=== PATIENT | male | born 1945 | race Caucasian/White ===

== ENCOUNTER 2016-10-06 11:49 | Inpatient (IN) | payer MEDICARE ==
[~2016-10-06] VITALS: Ht 170.2 cm; Wt 69.0 kg
[~2016-10-06 11:49] MED LIST: FOLI1TAB PO; GLIP10TA6 PO; METO100 PO; PRED5TAB PO; RANI150T PO; SULF500T35 PO; ULTR50TA PO
[2016-10-06 11:54] VITALS: BP 217/91; PULSE 65; RESP 15; TEMP 97.7; O2SAT 97
--- NOTE | 2016-10-06 12:03 | PD ---
Physical Exam Time Seen by Provider: 12:02 Narrative 71 y/o male here for evaluation of constipation, abdominal pain for 5 days, urinary retention 2 days. Vital signs reviewed. Seen at triage desk. Awaiting bed placement. Data Data Last Documented VS Vital Signs Date Time Temp Pulse Resp B/P Pulse Ox O2 Delivery O2 Flow Rate FiO2 10/06/16 11:54 97.7 65 15 217/91 97 MDM Medical Record Reviewed: Yes Supervised Visit with LAXMI: Duc Gerber Oct 06, 2016 12:03
[2016-10-06 12:44] LABS: AUTOMATED NEUTROPHIL # 6.6 TH/MM3 (1.8-7.7); BASOPHIL % 0.4 % (0.0-2.0); EOSINOPHIL # 0.2 TH/MM3 (0-0.4); EOSINOPHIL % 2.7 % (0.0-4.0); HEMATOCRIT 32.9 % (39.0-51.0); HEMO FLAGS DIFF FINAL; LYMPH % 13.6 % (9.0-44.0); LYMPHOCYTE # 1.1 TH/MM3 (1.0-4.8); MEAN CELL VOLUME 94.5 FL (80.0-100.0); MEAN CORPUSCULAR HEMOGLOBIN 31.4 PG (27.0-34.0); MEAN CORPUSCULAR HGB CONC 33.2 % (32.0-36.0); MONO % 3.8 % (0.0-8.0); NEUT % 79.5 % (16.0-70.0); PLATELET COUNT 196 TH/MM3 (150-450); RED BLOOD COUNT 3.48 MIL/MM3 (4.50-5.90); WHITE BLOOD COUNT 8.4 TH/MM3 (4.0-11.0)
[2016-10-06 13:15] LABS: ANION GAP 11 MEQ/L (5-15); AST (GOT) 11 U/L (15-37); BICARBONATE 18.3 MEQ/L (21.0-32.0); BLOOD UREA NITROGEN 36 MG/DL (7-18); CHLORIDE 112 MEQ/L (98-107); GLOMERULAR FILTRATION RATE 10 ML/MIN (>89); POTASSIUM 5.4 MEQ/L (3.5-5.1); SODIUM (NA) 141 MEQ/L (136-145)
[2016-10-06 13:37] LABS: ALKALINE PHOSPHATASE 108 U/L (45-117); ALT (GPT) 14 U/L (12-78); TOTAL BILIRUBIN ADULT 0.4 MG/DL (0.2-1.0)
--- NOTE | 2016-10-06 14:09 | PD ---
HPI Chief Complaint: Abdominal Pain Time Seen by Provider: 14:08 Travel History International Travel<30 days: No Contact w/Intl Traveler<30days: No Traveled to known affect area: No History of Present Illness HPI 71 YO M with PMH of DM, HTN, diverticulitis S/P partial colectomy presents to the ED for evaluation of 5 day history of constipation and 2 day history of anuria. He endorses mild, diffuse abdominal pain that is relieved by taking Tylenol. Patient denies fever, chills, nausea, vomiting. He states that he normally has 3-4 small NBNB bowel movements daily. He endorses decreased appetite but has been able to eat, last meal at dinner yesterday. He endorses panendoscopy "within the last few years" which he states was normal. PFSH Past Medical History Anemia: Yes (pernicious anemia) Arthritis: Yes (psoriatric arthritis ) Asthma: No Autoimmune Disease: No Anxiety: No Depression: No Heart Rhythm Problems: No Cancer: No Cardiovascular Problems: Yes High Cholesterol: Yes Chemotherapy: No Chest Pain: No Congestive Heart Failure: No COPD: No Cerebrovascular Accident: Yes (TIA) Dementia: Yes Diabetes: Yes Diminished Hearing: Yes ([place]) Endocrine: Yes Gastrointestinal Disorders: Yes GERD: Yes Genitourinary: Yes Hiatal Hernia: Yes Hypertension: Yes Immune Disorder: No Kidney Stones: No Musculoskeletal: Yes Neurologic: No Psychiatric: No Reproductive: No Respiratory: Yes Migraines: No Myocardial Infarction: Yes Radiation Therapy: No Renal Failure: Yes Seizures: No Sickle Cell Disease: No Sleep Apnea: Yes Thyroid Disease: No Ulcer: No Past Surgical History Abdominal Surgery: Yes (COLON RESECTION WITH COLOSTOMY) AICD: No Arteriovenous Shunt: No Cardiac Surgery: No Ear Surgery: No Endocrine Surgery: No Eye Surgery: No Genitourinary Surgery: No Gynecologic Surgery: No Insulin Pump: No Joint Replacement: No Neurologic Surgery: No Oral Surgery: No Pacemaker: No Thoracic Surgery: No Tonsillectomy: Yes Other Surgery: Yes (bilateral inguinal hernia) Social History Alcohol Use: No Tobacco Use: No Substance Use: No Allergies-Medications (Allergen,Severity, Reaction): Coded Allergies: No Known Allergies (Unverified , 10/06/16) Reported Meds & Prescriptions Reported Meds & Active Scripts Active Reported Zantac (Ranitidine HCl) 150 Mg Tab 150 Mg PO BID Glimepiride 2 Mg Tab 2 Mg PO BID Metoprolol Tartrate 100 Mg Tab 100 Mg PO BID Review of Systems Except as stated in HPI: all other systems reviewed are Neg Physical Exam Narrative GENERAL: Well-nourished, well-developed thin white male in no acute distress. SKIN: Focused skin assessment warm/dry. HEAD: Normocephalic. EYES: No scleral icterus. No injection or drainage. NECK: Supple, trachea midline. No JVD or lymphadenopathy. CARDIOVASCULAR: Regular rate and rhythm without murmurs, gallops, or rubs. RESPIRATORY: Breath sounds clear and equal bilaterally. No accessory muscle use. GASTROINTESTINAL: Abdomen soft, nondistended, mildly diffusely tender. No palpable masses. Some voluntary guarding. MUSCULOSKELETAL: No cyanosis, or edema. BACK: Nontender without obvious deformity. No CVA tenderness. Data Data Last Documented VS Vital Signs Date Time Temp Pulse Resp B/P Pulse Ox O2 Delivery O2 Flow Rate FiO2 10/06/16 14:36 24 10/06/16 14:35 98 Room Air 10/06/16 11:54 97.7 65 217/91 Orders Complete Blood Count With Diff (10/06/16 12:04) Comprehensive Metabolic Panel (10/06/16 12:04) Lipase (10/06/16 12:04) Urinalysis - C+S If Indicated (10/06/16 12:04) Bladder Scan PRN (10/06/16 14:25) Iv Access Insert/Monitor (10/06/16 14:25) Ecg Monitoring (10/06/16 14:25) Oximetry (10/06/16 14:25) NPO (10/06/16 14:25) Sodium Chlor 0.9% 1000 Ml Inj (Ns 1000 M (10/06/16 14:25) Ct Abd/Pel W/O Iv Contrast (10/06/16 14:25) Urinary Catheter Insert/Apply (10/06/16 14:28) Lactic Acid (10/06/16 14:28) Urine Culture (10/06/16 15:00) Ceftriaxone Inj (Rocephin Inj) (10/06/16 16:30) Electrocardiogram (10/06/16 17:34) Admit Order (Ed Use Only) (10/06/16 17:46) Consult Nephrology (10/06/16 ) Labs Laboratory Tests Test 10/06/16 10/06/16 10/06/16 12:10 14:45 15:00 White Blood Count 8.4 TH/MM3 Red Blood Count 3.48 MIL/MM3 Hemoglobin 10.9 GM/DL Hematocrit 32.9 % Mean Corpuscular Volume 94.5 FL Mean Corpuscular Hemoglobin 31.4 PG Mean Corpuscular Hemoglobin 33.2 % Concent Red Cell Distribution Width 14.0 % Platelet Count 196 TH/MM3 Mean Platelet Volume 7.1 FL Neutrophils (%) (Auto) 79.5 % Lymphocytes (%) (Auto) 13.6 % Monocytes (%) (Auto) 3.8 % Eosinophils (%) (Auto) 2.7 % Basophils (%) (Auto) 0.4 % Neutrophils # (Auto) 6.6 TH/MM3 Lymphocytes # (Auto) 1.1 TH/MM3 Monocytes # (Auto) 0.3 TH/MM3 Eosinophils # (Auto) 0.2 TH/MM3 Basophils # (Auto) 0.0 TH/MM3 CBC Comment DIFF FINAL Differential Comment Sodium Level 141 MEQ/L Potassium Level 5.4 MEQ/L Chloride Level 112 MEQ/L Carbon Dioxide Level 18.3 MEQ/L Anion Gap 11 MEQ/L Blood Urea Nitrogen 36 MG/DL Creatinine 5.44 MG/DL Estimat Glomerular Filtration 10 ML/MIN Rate Random Glucose 112 MG/DL Calcium Level 8.8 MG/DL Total Bilirubin 0.4 MG/DL Aspartate Amino Transf 11 U/L (AST/SGOT) Alanine Aminotransferase 14 U/L (ALT/SGPT) Alkaline Phosphatase 108 U/L Total Protein 8.3 GM/DL Albumin 3.5 GM/DL Lipase 379 U/L Lactic Acid Level 0.7 mmol/L Urine Color YELLOW Urine Turbidity CLEAR Urine pH 5.5 Urine Specific Strong 1.015 Urine Protein 30 mg/dL Urine Glucose (UA) NEG mg/dL Urine Ketones NEG mg/dL Urine Occult Blood TRACE Urine Nitrite NEG Urine Bilirubin NEG Urine Urobilinogen LESS THAN 2.0 MG/DL Urine Leukocyte Esterase MOD Urine RBC 2 /hpf Urine WBC 13 /hpf Microscopic Urinalysis Comment CULTURE INDICATED MDM Medical Decision Making Medical Screen Exam Complete: Yes Emergency Medical Condition: Yes Interpretation(s) EKG rate 68, sinus rhythm with occasional PVCs. LAD with ST and T-wave abnormalities in the lateral leads. Reviewed by Dr. Rome. Differential Diagnosis Bowel obstruction versus paralytic ileus versus pyelonephritis versus CELESTE versus urinary obstruction versus constipation versus other Narrative Course 71 YO M with PMH of DM, HTN, diverticulitis S/P partial colectomy presents to the ED for evaluation of 5 day history of constipation and 2 day history of anuria. He endorses mild, diffuse abdominal pain that is relieved by taking Tylenol. Patient denies fever, chills, nausea, vomiting. He endorses panendoscopy "within the last few years" which he states was normal. Vitals reviewed. Physical exam reveals a nontoxic-appearing white male in no acute distress. Diffuse mild tenderness in the abdomen and mild CVA tenderness. Physical exam is otherwise unremarkable. Hemoglobin 10.9, potassium 5.4, BUN 36 and creatinine 5.44. This is double his normal creatinine which runs around 2.3-2.8 per record review. UA with occasional blood, moderate leukocyte Estrace and [address] reveals nonspecific inflammation of the right kidney without hydronephrosis or obstruction. Patient was administered 2 L normal saline IV and a gram of Rocephin. The patient is in CELESTE and could benefit from nephrology consult. I discussed the results of the workup and recommended admission to the patient and his family who are agreeable. I spoke with Dr. Jean who agrees to accept the patient to the medicine service. Nephrology consult placed. Please see medicine for notes for disposition. Mirna Cobb Oct 06, 2016 14:08
[2016-10-06] MEDS ORDERED: SODIUM CHLOR 0.9% 1000 ML INJ 1,000 ML IV SCH (14:25)
[2016-10-06 14:35] VITALS: BP 199/88; PULSE 64; RESP 24; O2SAT 98
[2016-10-06] MEDS ORDERED: METO100T PO (14:50)
[2016-10-06] MEDS ORDERED: GLIM2TAB PO (14:51)
[2016-10-06] MEDS ORDERED: ZANT150T2 PO (14:51)
[2016-10-06 16:00] VITALS: BP 177/81; PULSE 66; RESP 21; O2SAT 99
[2016-10-06 16:02] LABS: BLOOD, URINE TRACE (NEG); COMMENT (UR) CULTURE INDICATED; CULTURE IF INDICATED CULTURE INDICATED; GLUCOSE,URINE NEG (NEG); KETONE, URINE NEG (NEG); NITRITE,URINE NEG (NEG); PH, URINE 5.5 (5.0-8.5); URINE COLOR YELLOW (YELLW/STRAW)
[2016-10-06] MEDS ORDERED: cefTRIAXone INJ 1,000 MG in SODIUM CHLORIDE 0.9% INJ 25 ML IV ONE (16:30)
--- NOTE | 2016-10-06 17:10 | RADRPT ---
EXAM DATE/TIME: 10/06/2016 16:51 [facility] COMPARISON: No previous studies available for comparison. INDICATIONS : Patient complains of abdominal pain. ORAL CONTRAST: No oral contrast ingested. RADIATION DOSE: 7.47 CTDIvol (mGy) MEDICAL HISTORY : Cardiovascular disease. Diabetes mellitus type 1. Hypertension. SURGICAL HISTORY : None. ENCOUNTER: Initial ACUITY: 1 day PAIN SCALE: 7/10 LOCATION: lower quadrant TECHNIQUE: Volumetric scanning of the abdomen and pelvis was performed. Using automated exposure control and ad justment of the mA and/or kV according to patient size, radiation dose was kept as low as reasonably achievable to obtain optimal diagnostic quality images. DICOM format image data is available electro nically for review and comparison. FINDINGS: Lung bases are clear. No acute findings in the liver, spleen, adrenals or pancreas. No calcified gall stones or biliary ductal dilatation. The kidneys are atrophic. There is some mild stranding around the right kidney of uncertain etiology but possibly representing some mild inflammatory changes. No hydronephrosis or obstructive uropathy. Seay catheter present in the bladder. Prostate is enlarged. Previous inguinal hernia repair noted. No bowel obstruction, free fluid or free air. No acute bony abnormality. Pars defects at the lumbosac ral junction with grade 1 anterolisthesis. CONCLUSION: 1. Questionable inflammatory or edematous changes around the right kidney. No hydronephrosis or obstr uctive uropathy. Tiny nonobstructing renal calcifications on the left. No acute findings in the remai nder of the abdomen and pelvis. 2. Pars defect at the lumbosacral junction with grade 1 anterolisthesis. Prostatic enlargement. Nelson Schilling MD on October 06, 2016 at 17:00 Board Certified Radiologist. This report was verified electronically.
[2016-10-06 18:30] VITALS: BP 170/79; PULSE 58; RESP 18; O2SAT 99
--- NOTE | 2016-10-06 18:46 | HHI.HP ---
HPI Service [facility] Hospitalists Primary Care Physician Denton Jean MD, PhD Admission Diagnosis CELESTE, hyperkalemia Chief Complaint: Constipation, decreased UOP Travel History International Travel<30 Days: No Contact w/Intl Traveler <30 Da: No Traveled to Known Affected Are: No History of Present Illness 71 YO M with PMH of DM, HTN, CKD-4, diverticulitis S/P partial colectomy presents to the ED for evaluation of 5 day history of constipation and 2 day history of anuria. He endorses mild, diffuse abdominal pain that is relieved by taking Tylenol. Patient denies fever, chills. Had one episode of vomiting 2 days ago and one small BM 2 days ago after using suppository. He states that he normally has 3-4 small NBNB bowel movements daily. He endorses decreased appetite but has been able to eat. His last meal was at dinner yesterday. He reports that he has been eating a lot of hot dogs over last 2 weeks and drinking "small Coke floats". No CP or SOB. No peripheral edema. Review of Systems Constitutional: COMPLAINS OF: Fatigue, Change in appetite Eyes: DENIES: Blurred vision, Diplopia, Eye inflammation, Eye pain, Vision loss , Photosensitivity, Double Vision Ears, nose, mouth, throat: DENIES: Tinnitus, Hearing loss, Vertigo, Nasal discharge, Oral lesions, Throat pain, Hoarseness, Ear Pain, Running Nose, Epistaxis, Sinus Pain, Toothache, Odynophagia Respiratory: DENIES: Apneas, Cough, Snoring, Wheezing, Hemoptysis, Sputum production, Shortness of breath Cardiovascular: DENIES: Chest pain, Palpitations, Syncope, Dyspnea on Exertion , PND, Lower Extremity Edema, Orthopnea, Claudication Gastrointestinal: COMPLAINS OF: Abdominal pain, Constipation, Nausea, Vomiting Musculoskeletal: COMPLAINS OF: Joint pain, Back pain Integumentary: COMPLAINS OF: Rash Hematologic/lymphatic: DENIES: Bruising, Lymphadenopathy Immunologic/allergic: DENIES: Eczema, Urticaria Past Family Social History Past Medical History Anemia of CKD CKD stage 4 (bordering on 5) DM nephropathy Dyslipidemia HTN Hyperkalemia Neuropathy Prior [place] Osteoporosis Psoriatic arthropathy Secondary hyperparathyroidism of CKD vit D def Past Surgical History Inguinal hernia rpr (1999, 2000) partial colectomy with bladder repair and ureteral stent placement secondary to colovesical fistula, 04/2011 Reported Medications ASA 81mg/d Calcium 600mg + vit D 400 IU bid Glimepiride 2mg bid Metoprolol 100mg bid Zantac 150mg bid TUMS 1 bid Vit D 77414 units each M,W,F Allergies: Coded Allergies: No Known Allergies (Unverified , 10/06/16) Family History nc Social History No tobacco since 1970; prior to that had 15 pack-year hx Occasional EtOH use No illicits 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 a/o. SKIN: Psoriatic rash BLE and UE...stable. Cool and dry. HEAD: Atraumatic. Normocephalic. No temporal or scalp tenderness. EYES: Pupils equal round and reactive. Extraocular motions intact. No scleral icterus. No injection or drainage. ENT: Nose without bleeding, purulent drainage or septal hematoma. Airway patent. NECK: Trachea midline. No JVD or lymphadenopathy. Supple, nontender, no meningeal signs. CARDIOVASCULAR: Regular rate and rhythm without murmurs, gallops, or rubs. RESPIRATORY: Clear to auscultation. Breath sounds equal bilaterally. No wheezes , rales, or rhonchi. GASTROINTESTINAL: Abdomen soft, nondistended. Mild TTP RUQ and to lesser degree LUQ. No hepato-splenomegaly, or palpable masses. No guarding. MUSCULOSKELETAL: Extremities without clubbing, cyanosis, or edema. No joint tenderness, effusion, or edema noted. No calf tenderness. NEUROLOGICAL: Awake and alert. Cranial nerves II through XII intact. Motor and sensory grossly within normal limits. Five out of 5 muscle strength in all muscle groups. Normal speech. Laboratory Laboratory Tests Test 10/06/16 10/06/16 10/06/16 12:10 14:45 15:00 White Blood Count 8.4 Red Blood Count 3.48 Hemoglobin 10.9 Hematocrit 32.9 Mean Corpuscular Volume 94.5 Mean Corpuscular Hemoglobin 31.4 Mean Corpuscular Hemoglobin 33.2 Concent Red Cell Distribution Width 14.0 Platelet Count 196 Mean Platelet Volume 7.1 Neutrophils (%) (Auto) 79.5 Lymphocytes (%) (Auto) 13.6 Monocytes (%) (Auto) 3.8 Eosinophils (%) (Auto) 2.7 Basophils (%) (Auto) 0.4 Neutrophils # (Auto) 6.6 Lymphocytes # (Auto) 1.1 Monocytes # (Auto) 0.3 Eosinophils # (Auto) 0.2 Basophils # (Auto) 0.0 CBC Comment DIFF FINAL Differential Comment Sodium Level 141 Potassium Level 5.4 Chloride Level 112 Carbon Dioxide Level 18.3 Anion Gap 11 Blood Urea Nitrogen 36 Creatinine 5.44 Estimat Glomerular Filtration 10 Rate Random Glucose 112 Calcium Level 8.8 Total Bilirubin 0.4 Aspartate Amino Transf 11 (AST/SGOT) Alanine Aminotransferase 14 (ALT/SGPT) Alkaline Phosphatase 108 Total Protein 8.3 Albumin 3.5 Lipase 379 Lactic Acid Level 0.7 Urine Color YELLOW Urine Turbidity CLEAR Urine pH 5.5 Urine Specific [place] 1.015 Urine Protein 30 Urine Glucose (UA) NEG Urine Ketones NEG Urine Occult Blood TRACE Urine Nitrite NEG Urine Bilirubin NEG Urine Urobilinogen LESS THAN 2.0 Urine Leukocyte Esterase MOD Urine RBC 2 Urine WBC 13 Microscopic Urinalysis Comment CULTURE INDICATED Date/Time Procedure Status Source Growth 10/06/16 15:00 Urine Culture Received Urine Random Urine Pending Result Diagram: 10/06/16 1210 10/06/16 1210 Imaging Last 72 hours Impressions Abdomen/Pelvis CT 10/06/16 1425 Signed Impressions: Service Date/Time: Thursday, October 06, 2016 16:51 - CONCLUSION: 1. Questionable inflammatory or edematous changes around the right kidney. No hydronephrosis or obstructive uropathy. Tiny nonobstructing renal calcifications on the left. No acute findings in the remainder of the abdomen and pelvis. 2. Pars defect at the lumbosacral junction with grade 1 anterolisthesis. Prostatic enlargement. Nelson Schilling MD Assessment and Plan Problem List: (1) Acute kidney injury superimposed on CKD Status: Acute Plan: Will have nephrology see pt. Reportedly had been anuric. Has urinated appx 700 cc since chen placed per ER provider. Could have some degree of distal obstruction. Noted inflammatory changes on CT...? nephritis. (2) Diabetic nephropathy Status: Chronic Plan: A1c was 6.5 in 04/2016. Pt overdue for labs. Will check labs, use SSI in hospital. (3) Anemia in chronic kidney disease (CKD) Status: Chronic Plan: Hb is stable with outpt values. Continue to follow. Would not use Epogen unless Hb closer to 8 or 8.5 (4) Hyperkalemia Status: Acute Plan: recurring issue a/w CKD. Avoiding KANNAN-I and ARB. Give fluid and repeat labs. (5) HTN (hypertension), benign Status: Chronic Plan: quite volatile at times. Resume home meds. Clonidine prn. May need to schedule hydralazine. (6) CAD (coronary artery disease) Status: Chronic Plan: stable. Continue secondary prevention. (7) Psoriatic arthritis Status: Chronic Plan: Stable. Outpt care. He has not wanted aggressive intervention Code Status Full Discussed Condition With Pt, ER provider and pt's Problem Qualifiers (1) Diabetic nephropathy: Qualified Code: E11.21 - Diabetic nephropathy associated with type 2 diabetes mellitus (2) Anemia in chronic kidney disease (CKD): Qualified Code: N18.5 - Anemia in stage 5 chronic kidney disease, not on chronic dialysis Denton Jean MD PhD Oct 06, 2016 18:46
[2016-10-06] MEDS ORDERED: TEMAZEPAM 15 MG CAP PO PRN (19:00)
[2016-10-06] MEDS ORDERED: DEXTROSE 50% IN WATER 50 ML VIAL(D50) IV PUSH PRN (19:15)
[2016-10-06] MEDS ORDERED: GLUCAGON 1 MG/ML VIAL OTHER PRN (19:15)
[2016-10-06] MEDS: cloNIDine HCL 0.1 MG TAB PO PRN (19:41)
[2016-10-06] MEDS ORDERED: ONDANSETRON HCL 4 MG/2 ML VIAL IV PUSH PRN (19:45)
[2016-10-06] MEDS ORDERED: POLYETHYLENE GLYCOL 17 GM PKG PO ONE (19:45)
[2016-10-06] MEDS: TAMSULOSIN HCL 0.4 MG CAP PO SCH (20:28)
[2016-10-06] MEDS: INSULIN ASPART SUPPLEMENTAL SCALE SQ SCH (21:00)
[2016-10-06 21:54] LABS: HEMOGLOBIN A1a 1.3 %; HEMOGLOBIN A1b 1.4 %; HEMOGLOBIN Ao 85.8 %; HEMOGLOBIN LA1C 1.9 %; HEMOGLOBIN P3 5.1 %
[2016-10-06] MEDS ORDERED: DOCUSATE SODIUM 100 MG CAP PO ONE (22:00)
[2016-10-06 22:15] VITALS: BP 151/67; PULSE 71; RESP 18; TEMP 98.4; O2SAT 97
--- NOTE | 2016-10-06 22:42 | MB ---
cc: RENETTA LEONARD MD DATE OF CONSULTATION 10/06/2016 REASON FOR CONSULTATION Elevated BUN and creatinine and high potassium. HISTORY OF PRESENT ILLNESS This is a 70-year-old male with past medical history of chronic kidney disease, hypertension, ischemic heart disease, hyperlipidemia, chronic anemia was brought to the hospital because of severe constipation and decreased urine output. I was called to see the patient because of elevated BUN and creatinine. The patient claims that he has history of chronic kidney disease and his creatinine has been staying around 2. The last one I have in the computer in 2014 it was 2.4-2.6. The patient has not been following regularly with any financial service rep and he is just following with his primary physician and according to his primary physician's note he has stage IV renal disease approaching stage V. The patient has previous history of bladder repair and ureteral stent placement with partial colectomy and reversal of colostomy. The patient denies any history of fever. Was not taking any new medication. He has been taking only Tylenol. Denies taking any nonsteroidal anti-inflammatory drugs. He noted that he has decreased urine output for last 2 days and he has not passed any urine for last 1-1/2 days. He has severe constipation for 5 days and not eating well because of severe constipation. There is no history of shortness of breath. No chest pain. No palpitation. He vomited once on Wednesday two days ago. PAST MEDICAL HISTORY 1. Hypertension. 2. Chronic kidney disease. 3. Diabetes mellitus. 4. Chronic anemia. 5. Ischemic heart disease. PAST SURGICAL HISTORY 1. Colectomy and colostomy with reversal. 2. History of bladder repair with colovesical fistula. 3. Inguinal hernia surgery. REVIEW OF SYSTEMS The patient has generalized weakness, feeling tired. Has no history of fever. No shortness of breath. No chest pain. He has generalized weakness, has decreased appetite, vomited once 2 days ago. He has constipation and has decreased urine output. And has no urine output for the last 1-1/2 days. He currently has a Seay catheter and started passing some urine. SOCIAL HISTORY Patient is . He has a remote history of smoking and occasionally uses alcoholic beverages. FAMILY HISTORY His uncle, father's brother was on hemodialysis and father has some renal issues but was not on dialysis. ALLERGIES NO KNOWN DRUG ALLERGIES. MEDICATIONS Currently he is on: 1. Flomax. 2. He got one dose of ceftriaxone and IV fluids. 3. He is on insulin sliding scale. PHYSICAL EXAMINATION GENERAL: The patient is awake and alert. He is not in acute distress. VITAL SIGNS: His last blood pressure is 217/91 this was on presentation. Temperature 97.7. Oxygen saturation 97-98% on room air. HEENT: Pupils equally reactive to light. Nonicteric sclerae. Conjunctivae pale. NECK: Supple. JVD is not elevated. LUNGS: The patient has bilateral decreased air entry with scattered wheezing. HEART: S1-S2. Regular rhythm. ABDOMEN: Distended. Soft. Lax. There are multiple scars. No tenderness. Bowel sounds positive. EXTREMITIES: He has low edema in the legs. LABORATORY DATA Investigations, WBC count 8.4, hemoglobin 10.9, platelet count of 196, neutrophils 79.5%. Sodium 141, potassium 5.4, chloride 112, bicarb 18.3. The BUN of 36, creatinine 5.4, calcium 8.8. AST 11, ALT is 14, total protein is 8.3, albumin of 3.5. INR is 1.0. Urinalysis showing protein of 13, trace occult blood. Moderate leukocyte esterase. Wbc's 13, rbc's 2. Previously he has rheumatoid factor positive and GRACIA was negative. toxicology screen was not done. Urine cultures is pending. IMAGING The patient had a CT scan of the abdomen and pelvis done which shows edematous changes on the right kidney with no hydronephrosis, non-obstructing renal calcification on the left side. Enlarged prostate. The kidneys are mentioned as atrophic. ASSESSMENT/PLAN 1. Chronic kidney disease with some acute kidney injury. 2. Hyperkalemia and metabolic acidosis. 3. Urinary tract infection. 4. Dehydration. 5. Hypertension. 6. Diabetes mellitus. 7. Mild anemia. The patient has chronic kidney disease most likely has diabetic renal disease and now developed some acute worsening. He has a smaller kidney so there is a possibility of hypertensive renovascular disease. His potassium was elevated and his bicarb is low. I will give him some gentle hydration with sodium bicarbonate and follow the urine output and the BUN and creatinine. Discussed with the patient and about the possibility of dialysis if his renal function does not improve. Thank you for the consultation and I will follow the patient while he is in the hospital. MD WENDY Lundberg/KK /6:52 PM /10:21 PM
[2016-10-06] MEDS: METOPROLOL TARTRATE 100 MG TAB PO SCH (23:15)
[2016-10-06] MEDS: FAMOTIDINE 20 MG TAB PO SCH (23:15)
[2016-10-06] MEDS: SODIUM BICARBONATE 8.4% INJ 50 MEQ in SODIUM CHLOR 0.45% 1000 ML INJ 1,000 ML IV SCH (23:41)
[2016-10-07] VITALS (7 sets, daily range): BP systolic 149–180; BP diastolic 67–79; PULSE 52–90; RESP 16–21; TEMP 97.4–98.8; O2SAT 96–100
[2016-10-07] MEDS: INSULIN ASPART SUPPLEMENTAL SCALE SQ SCH ×4 (06:19→21:00)
--- NOTE | 2016-10-07 08:28 | EKG ---
Date Performed: 10/06/2016 Time Performed: 17:44:03 PTAGE: 71 years EKG: Sinus rhythm WITH OCCASIONAL ECTOPIC PREMATURE COMPLEXES MARKED LEFT AXIS DEVIATION INCOMPLETE RIGHT BUNDLE BRANC H BLOCK MODERATE VOLTAGE CRITERIA FOR LVH, CONSIDER NORMAL VARIANT ST DEVIATION AND MODERATE T-WAVE A BNORMALITY, CONSIDER ANTEROLATERAL ISCHEMIA ABNORMAL ECG NO PREVIOUS TRACING DOCTOR: Femi Herrera Interpretating Date/Time 10/07/2016 08:26:43
[2016-10-07] MEDS: TAMSULOSIN HCL 0.4 MG CAP PO SCH (08:46)
[2016-10-07] MEDS: FAMOTIDINE 20 MG TAB PO SCH ×2 (08:46→22:06)
[2016-10-07] MEDS: METOPROLOL TARTRATE 100 MG TAB PO SCH ×2 (08:46→22:06)
[2016-10-07 09:22] LABS: ALKALINE PHOSPHATASE 80 U/L (45-117); ALT (GPT) 11 U/L (12-78); ANION GAP 7 MEQ/L (5-15); AST (GOT) 6 U/L (15-37); BICARBONATE 18.6 MEQ/L (21.0-32.0); BLOOD UREA NITROGEN 35 MG/DL (7-18); CHLORIDE 112 MEQ/L (98-107); GLOMERULAR FILTRATION RATE 12 ML/MIN (>89); HDL CHOLESTEROL 20.9 MG/DL (40.0-60.0); LDL CHOLESTEROL 52 MG/DL (0-99); POTASSIUM 4.8 MEQ/L (3.5-5.1); SODIUM (NA) 138 MEQ/L (136-145); TOTAL BILIRUBIN ADULT 0.3 MG/DL (0.2-1.0)
--- NOTE | 2016-10-07 11:04 | HHI.PR ---
Subjective Remarks eager for d/c no other complaints bowels moving Objective Vitals heart reg lung cta abd s/nt ext no edema chen 1200cc Vital Signs Date Time Temp Pulse Resp B/P Pulse Ox O2 Delivery O2 Flow Rate FiO2 10/07/16 08:35 97.6 54 16 149/67 96 10/07/16 04:47 98.8 52 21 156/73 100 10/07/16 01:05 98.7 55 18 169/72 97 10/06/16 22:15 98.4 71 18 151/67 97 10/06/16 18:30 58 18 170/79 99 Room Air 10/06/16 16:00 66 21 177/81 99 Room Air 10/06/16 14:36 24 10/06/16 14:35 24 98 Room Air 10/06/16 14:35 64 24 199/88 98 Room Air 10/06/16 11:54 97.7 65 15 217/91 97 Result Diagram: 10/06/16 1210 10/07/16 0811 Imaging Last 72 hours Impressions Abdomen/Pelvis CT 10/06/16 1425 Signed Impressions: Service Date/Time: Thursday, October 06, 2016 16:51 - CONCLUSION: 1. Questionable inflammatory or edematous changes around the right kidney. No hydronephrosis or obstructive uropathy. Tiny nonobstructing renal calcifications on the left. No acute findings in the remainder of the abdomen and pelvis. 2. Pars defect at the lumbosacral junction with grade 1 anterolisthesis. Prostatic enlargement. Nelson Schilling MD A/P Problem List: (1) Acute kidney injury superimposed on CKD Status: Acute Plan: a/ckd 4. ckd due to dm. cont ivf hydration. pt has 1200cc in chen and cr/gfr slightly improved. renal following dvt prophylaxis ambulate monitor for improvement in gfr and if pt can avoid HD. f/u urine cx. prn bp control. changed scheduled meds as needed. (2) Diabetic nephropathy Status: Chronic Plan: A1c was 6.5 in 04/2016. Pt overdue for labs. Will check labs, use SSI in hospital. (3) Anemia in chronic kidney disease (CKD) Status: Chronic Plan: Hb is stable with outpt values. Continue to follow. Would not use Epogen unless Hb closer to 8 or 8.5 (4) Hyperkalemia Status: Acute Plan: recurring issue a/w CKD. Avoiding KANNAN-I and ARB. improved with ivf (5) HTN (hypertension), benign Status: Chronic Plan: quite volatile at times. Resume home meds. Clonidine prn. May need to schedule hydralazine. (6) CAD (coronary artery disease) Status: Chronic Plan: stable. Continue secondary prevention. (7) Psoriatic arthritis Status: Chronic Plan: Stable. Outpt care. He has not wanted aggressive intervention Problem Qualifiers (1) Diabetic nephropathy: Qualified Code: E11.21 - Diabetic nephropathy associated with type 2 diabetes mellitus (2) Anemia in chronic kidney disease (CKD): Qualified Code: N18.5 - Anemia in stage 5 chronic kidney disease, not on chronic dialysis Waldemar Benjamin MD Oct 07, 2016 11:04
[2016-10-07] MEDS: SODIUM BICARBONATE 8.4% INJ 50 MEQ in SODIUM CHLOR 0.45% 1000 ML INJ 1,000 ML IV SCH ×2 (11:24→22:09)
--- NOTE | 2016-10-07 23:07 | HHI.NPPN ---
Subjective History of Present Illness 70-year-old male with past medical history of chronic kidney disease, hypertension, ischemic heart disease, hyperlipidemia, chronic anemia was brought to the hospital because of severe constipation and decreased urine output. I was called to see the patient because of elevated BUN and creatinine. Additional Remarks Patient is alert, no SOB, no abd. pain. Review of Systems General Constitutional: Fatigue Cardiovascular Cardiac: MEZA Gastrointestinal Gastrointestinal: Constipation Objective Data Data 10/06/16 10/07/16 19:00 07:00 Bladder Scan Volume Amount 100 ml Vital Signs Date Time Temp Pulse Resp B/P Pulse Ox O2 Delivery O2 Flow Rate FiO2 10/07/16 19:42 98.2 60 18 166/79 97 10/07/16 15:24 98.7 90 18 151/70 100 10/07/16 11:18 97.4 54 16 156/73 96 10/07/16 08:35 97.6 54 16 149/67 96 10/07/16 04:47 98.8 52 21 156/73 100 10/07/16 01:05 98.7 55 18 169/72 97 -: 10/06/16 1210 10/07/16 0811 Physical Exam General Appearance: No Acute Distress, Comfortable Eyes Eye Exam: Pupils Equal Throat Throat Exam: Oral Mucosa [place] & Moist Neck Neck Exam: Neck Supple Pulmonary Resp Exam: Clear Bilaterally, Breath Sounds Equal, Rhonchi, Decreased Bases Cardiology CV Exam: Regular, Normal Sinus Rhythm Gastrointestinal/Abdomen GI Exam: Soft, Non-Tender, Bowel Sounds Present, Non-Distended Extremeties Extremities Exam: No Edema Neurologic Neuro Exam: Alert, Awake, Oriented Psychiatric Psych Exam: Appropriate Responses Assessment/Plan Assessment Summary: Anemia of CKD, Dehydration, Hypertension, CKD Stage IV Problem List: (1) CAD (coronary artery disease) (2) Diabetic nephropathy (3) HTN (hypertension), benign (4) Hyperkalemia (5) Diabetes mellitus (6) Anemia in chronic kidney disease (CKD) (7) Acute kidney injury superimposed on CKD Plan Patient has advance renal disease. Atrophic kidneys on CT scan. Non oliguric, BP is on higher side. On Metoprolol. Continue IVF and follow BMP. If no improvement, possible Dialysis. Problem Qualifiers (1) Diabetic nephropathy: Qualified Code: E11.21 - Diabetic nephropathy associated with type 2 diabetes mellitus (2) Diabetes mellitus: (3) Anemia in chronic kidney disease (CKD): Qualified Code: N18.5 - Anemia in stage 5 chronic kidney disease, not on chronic dialysis Daphne Davidson MD Oct 07, 2016 23:07
[2016-10-08] VITALS (7 sets, daily range): BP systolic 150–176; BP diastolic 68–79; PULSE 54–87; RESP 16–20; TEMP 97.5–98.5; O2SAT 91–99
[2016-10-08] MEDS: cloNIDine HCL 0.1 MG TAB PO PRN (06:00)
[2016-10-08] MEDS: INSULIN ASPART SUPPLEMENTAL SCALE SQ SCH ×2 (06:26→18:22)
[2016-10-08] MEDS: SODIUM BICARBONATE 8.4% INJ 50 MEQ in SODIUM CHLOR 0.45% 1000 ML INJ 1,000 ML IV SCH (06:47)
[2016-10-08 07:38] LABS: BICARBONATE 20.7 MEQ/L (21.0-32.0); POTASSIUM 4.9 MEQ/L (3.5-5.1)
[2016-10-08] MEDS: TAMSULOSIN HCL 0.4 MG CAP PO SCH (08:41)
[2016-10-08] MEDS: METOPROLOL TARTRATE 100 MG TAB PO SCH ×2 (08:42→20:36)
[2016-10-08] MEDS: FAMOTIDINE 20 MG TAB PO SCH ×2 (08:43→20:36)
--- NOTE | 2016-10-08 09:50 | HHI.PR ---
Subjective Remarks Pt complains about the frequency of the accuchecks. States that he only checks his BS at home twice daily He is frustrated by his lab results today and is anxious to go home. No specific complaints otherwise. Objective Vitals Vital Signs Date Time Temp Pulse Resp B/P Pulse Ox O2 Delivery O2 Flow Rate FiO2 10/08/16 07:57 97.9 55 16 150/68 96 10/08/16 03:48 97.6 58 20 176/74 98 10/08/16 00:42 171/72 10/07/16 23:31 97.7 61 18 180/72 97 10/07/16 19:42 98.2 60 18 166/79 97 10/07/16 15:24 98.7 90 18 151/70 100 10/07/16 11:18 97.4 54 16 156/73 96 10/07/16 10/07/16 10/08/16 15:00 23:00 07:00 Intake Total 672 ml Output Total 1100 ml 650 ml Balance -428 ml -650 ml Intake IV Total 672 ml Output Urine Total 1100 ml 650 ml # Voids 1 Result Diagram: 10/06/16 1210 10/08/16 0600 Other Results Laboratory Tests Test 10/06/16 10/06/16 10/06/16 10/07/16 12:10 14:45 15:00 08:11 White Blood Count 8.4 TH/MM3 Red Blood Count 3.48 MIL/MM3 Hemoglobin 10.9 GM/DL Hematocrit 32.9 % Mean Corpuscular Volume 94.5 FL Mean Corpuscular Hemoglobin 31.4 PG Mean Corpuscular Hemoglobin 33.2 % Concent Red Cell Distribution Width 14.0 % Platelet Count 196 TH/MM3 Mean Platelet Volume 7.1 FL Neutrophils (%) (Auto) 79.5 % Lymphocytes (%) (Auto) 13.6 % Monocytes (%) (Auto) 3.8 % Eosinophils (%) (Auto) 2.7 % Basophils (%) (Auto) 0.4 % Neutrophils # (Auto) 6.6 TH/MM3 Lymphocytes # (Auto) 1.1 TH/MM3 Monocytes # (Auto) 0.3 TH/MM3 Eosinophils # (Auto) 0.2 TH/MM3 Basophils # (Auto) 0.0 TH/MM3 CBC Comment DIFF FINAL Differential Comment Sodium Level 141 MEQ/L 138 MEQ/L Potassium Level 5.4 MEQ/L 4.8 MEQ/L Chloride Level 112 MEQ/L 112 MEQ/L Carbon Dioxide Level 18.3 MEQ/L 18.6 MEQ/L Anion Gap 11 MEQ/L 7 MEQ/L Blood Urea Nitrogen 36 MG/DL 35 MG/DL Creatinine 5.44 MG/DL 4.82 MG/DL Estimat Glomerular Filtration 10 ML/MIN 12 ML/MIN Rate Random Glucose 112 MG/DL 63 MG/DL Hemoglobin A1c 5.3 % Calcium Level 8.8 MG/DL 7.5 MG/DL Total Bilirubin 0.4 MG/DL 0.3 MG/DL Aspartate Amino Transf 11 U/L 6 U/L (AST/SGOT) Alanine Aminotransferase 14 U/L 11 U/L (ALT/SGPT) Alkaline Phosphatase 108 U/L 80 U/L Total Protein 8.3 GM/DL 6.3 GM/DL Albumin 3.5 GM/DL 2.6 GM/DL Lipase 379 U/L Lactic Acid Level 0.7 mmol/L Urine Color YELLOW Urine Turbidity CLEAR Urine pH 5.5 Urine Specific [place] 1.015 Urine Protein 30 mg/dL Urine Glucose (UA) NEG mg/dL Urine Ketones NEG mg/dL Urine Occult Blood TRACE Urine Nitrite NEG Urine Bilirubin NEG Urine Urobilinogen LESS THAN 2.0 MG/DL Urine Leukocyte Esterase MOD Urine RBC 2 /hpf Urine WBC 13 /hpf Microscopic Urinalysis Comment CULTURE INDICATED Phosphorus Level 2.8 MG/DL Triglycerides Level 112 MG/DL Cholesterol Level 95 MG/DL LDL Cholesterol 52 MG/DL HDL Cholesterol 20.9 MG/DL Cholesterol/HDL Ratio 4.54 RATIO Thyroid Stimulating Hormone 3.410 uIU/ML 3rd Gen Test 10/08/16 06:00 Sodium Level 140 MEQ/L Potassium Level 4.9 MEQ/L Chloride Level 113 MEQ/L Carbon Dioxide Level 20.7 MEQ/L Anion Gap 6 MEQ/L Blood Urea Nitrogen 40 MG/DL Creatinine 5.18 MG/DL Estimat Glomerular Filtration 11 ML/MIN Rate Random Glucose 66 MG/DL Calcium Level 7.5 MG/DL Imaging Last 72 hours Impressions Abdomen/Pelvis CT 10/06/16 1458 Signed Impressions: Service Date/Time: Thursday, October 06, 2016 16:51 - CONCLUSION: 1. Questionable inflammatory or edematous changes around the right kidney. No hydronephrosis or obstructive uropathy. Tiny nonobstructing renal calcifications on the left. No acute findings in the remainder of the abdomen and pelvis. 2. Pars defect at the lumbosacral junction with grade 1 anterolisthesis. Prostatic enlargement. Nelson Schilling MD Objective Remarks General: NAD, AAOx3 Chest: CTA Cardiac: Regular Abd: +BS, soft ND/NT Ext: No edema A/P Problem List: (1) Acute kidney injury superimposed on CKD Status: Acute Plan: - Pt with chronic kidney disease, stage 4 due to DM who presented to the ED with constipation and urinary retention. - He was found to have acute worsening of his renal function with Cr 5.44/BUN 36 , GFR 10 - Pt started on IVF hydration. - Pt had Seay catheter placed at admission. Overnight he had out about 650cc of urine and currently has 200cc in Seay bag. - Initially his labs improved but labs are slightly worse today than yesterday, Cr 5.18/BUN 40, GFR 11. - Nephrology is following - Cont. IVF - Monitor labs daily - Its not clear at this time if the pt will be able to avoid HD. - Urine culture with no growth in 24 hours. - Avoid nephrotoxic medications. - PRN BP control. - DVT prophylaxis with SCDs (2) Diabetic nephropathy Status: Chronic Plan: - A1c was 6.5 in 04/2016. Pt overdue for labs. - Pt wants accu checks backed off to BID - NovoLog SSI (3) Anemia in chronic kidney disease (CKD) Status: Chronic Plan: - Hgb is stable with outpt values. Continue to follow. - Would not use Epogen unless Hb closer to 8 or 8.5 (4) Hyperkalemia Status: Acute Plan: - Recurring issue a/w CKD. Avoiding KANNAN-I and ARB. - Improved with IVF (5) HTN (hypertension), benign Status: Chronic Plan: - Quite volatile at times. - Cont. Metoprolol. - Clonidine prn. - May need to schedule hydralazine. (6) CAD (coronary artery disease) Status: Chronic Plan: - Stable. Continue secondary prevention. (7) Psoriatic arthritis Status: Chronic Plan: - Stable. Outpt care. He has not wanted aggressive intervention Assessment and Plan Patient examined. Assessment and plan formulated with Joan Park PA-C. I agree with the above. a/ckd 4. gfr not improving with ivf. await reccs from dr Davidson...?cont monitor vs HD....pt and family updated. Problem Qualifiers (1) Diabetic nephropathy: Qualified Code: E11.21 - Diabetic nephropathy associated with type 2 diabetes mellitus (2) Anemia in chronic kidney disease (CKD): Qualified Code: N18.5 - Anemia in stage 5 chronic kidney disease, not on chronic dialysis Joan Park Oct 08, 2016 09:50 Waldemar Benjamin MD Oct 08, 2016 12:57
[2016-10-08] MEDS: ACETAMINOPHEN 325 MG TAB PO PRN (16:41)
--- NOTE | 2016-10-08 17:20 | HHI.NPPN ---
Subjective History of Present Illness 70-year-old male with past medical history of chronic kidney disease, hypertension, ischemic heart disease, hyperlipidemia, chronic anemia was brought to the hospital because of severe constipation and decreased urine output. I was called to see the patient because of elevated BUN and creatinine. Additional Remarks Patient is alert, no SOB, no abd. pain, eating better, no nausea. Review of Systems General Constitutional: Fatigue Cardiovascular Cardiac: MEZA Gastrointestinal Gastrointestinal: Constipation Objective Data Data 10/07/16 10/08/16 19:00 07:00 Intake Total 672 ml Output Total 1100 ml 650 ml Balance -428 ml -650 ml Intake IV Total 672 ml Output Urine Total 1100 ml 650 ml # Voids 1 Vital Signs Date Time Temp Pulse Resp B/P Pulse Ox O2 Delivery O2 Flow Rate FiO2 10/08/16 15:41 97.7 57 18 155/70 98 10/08/16 12:05 97.5 54 16 156/71 97 10/08/16 07:57 97.9 55 16 150/68 96 10/08/16 03:48 97.6 58 20 176/74 98 10/08/16 00:42 171/72 10/07/16 23:31 97.7 61 18 180/72 97 10/07/16 19:42 98.2 60 18 166/79 97 -: 10/06/16 1210 10/08/16 0600 Physical Exam General Appearance: No Acute Distress, Comfortable Eyes Eye Exam: Pupils Equal Throat Throat Exam: Oral Mucosa [place] & Moist Neck Neck Exam: Neck Supple Pulmonary Resp Exam: Clear Bilaterally, Breath Sounds Equal, Rhonchi, Decreased Bases Cardiology CV Exam: Regular, Normal Sinus Rhythm Gastrointestinal/Abdomen GI Exam: Soft, Non-Tender, Bowel Sounds Present, Non-Distended Extremeties Extremities Exam: No Edema Neurologic Neuro Exam: Alert, Awake, Oriented Psychiatric Psych Exam: Appropriate Responses Assessment/Plan Assessment Summary: Anemia of CKD, Dehydration, Hypertension, CKD Stage IV Problem List: (1) CAD (coronary artery disease) (2) Diabetic nephropathy (3) HTN (hypertension), benign (4) Hyperkalemia (5) Diabetes mellitus (6) Anemia in chronic kidney disease (CKD) (7) Acute kidney injury superimposed on CKD Plan Patient has advance renal disease. Atrophic kidneys on CT scan. Non oliguric, BP is on higher side. On Metoprolol, add Amlodipine. Continue IVF and follow BMP. If no improvement, possible Dialysis. Creatinine is still elevated and GFR is 10-11 ml/min. D/W the patient and family in detail about Dialysis, HD and PD. Problem Qualifiers (1) Diabetic nephropathy: Qualified Code: E11.21 - Diabetic nephropathy associated with type 2 diabetes mellitus (2) Diabetes mellitus: (3) Anemia in chronic kidney disease (CKD): Qualified Code: N18.5 - Anemia in stage 5 chronic kidney disease, not on chronic dialysis Daphne Davidson MD Oct 08, 2016 17:20
[2016-10-08] MEDS: amLODIPine BESYLATE 5 MG TAB PO SCH (18:22)
[2016-10-09] VITALS (7 sets, daily range): BP systolic 144–182; BP diastolic 62–82; PULSE 57–78; RESP 18–20; TEMP 96.3–97.8; O2SAT 91–97
[2016-10-09] MEDS: SODIUM BICARBONATE 8.4% INJ 50 MEQ in SODIUM CHLOR 0.45% 1000 ML INJ 1,000 ML IV SCH ×2 (00:07→13:50)
[2016-10-09] MEDS: ACETAMINOPHEN 325 MG TAB PO PRN ×3 (00:08→18:50)
[2016-10-09] MEDS: cloNIDine HCL 0.1 MG TAB PO PRN ×2 (00:08→18:48)
[2016-10-09 06:03] LABS: AUTOMATED NEUTROPHIL # 2.6 TH/MM3 (1.8-7.7); BASOPHIL % 0.5 % (0.0-2.0); EOSINOPHIL # 0.2 TH/MM3 (0-0.4); EOSINOPHIL % 5.6 % (0.0-4.0); HEMATOCRIT 24.4 % (39.0-51.0); HEMO FLAGS DIFF FINAL; LYMPH % 23.9 % (9.0-44.0); MEAN CELL VOLUME 93.5 FL (80.0-100.0); MEAN CORPUSCULAR HEMOGLOBIN 32.1 PG (27.0-34.0); MEAN CORPUSCULAR HGB CONC 34.4 % (32.0-36.0); MONO % 5.6 % (0.0-8.0); NEUT % 64.4 % (16.0-70.0); PLATELET COUNT 112 TH/MM3 (150-450); RED BLOOD COUNT 2.61 MIL/MM3 (4.50-5.90); RED CELL DISTRIBUTION WIDTH 13.9 % (11.6-17.2); WHITE BLOOD COUNT 4.1 TH/MM3 (4.0-11.0)
[2016-10-09] MEDS: INSULIN ASPART SUPPLEMENTAL SCALE SQ SCH ×2 (06:19→19:00)
[2016-10-09 06:20] LABS: BICARBONATE 21.6 MEQ/L (21.0-32.0); POTASSIUM 4.5 MEQ/L (3.5-5.1)
[2016-10-09 06:34] LABS: CALCIUM-PROTEIN CORRECTED 7.7 MG/DL (8.5-10.1)
[2016-10-09] MEDS ORDERED: SODIUM CHLOR 0.9% 1000 ML INJ 1,000 ML IV PRN ×2 (10:10)
--- NOTE | 2016-10-09 10:10 | HHI.NPPN ---
Subjective History of Present Illness 70-year-old male with past medical history of chronic kidney disease, hypertension, ischemic heart disease, hyperlipidemia, chronic anemia was brought to the hospital because of severe constipation and decreased urine output. I was called to see the patient because of elevated BUN and creatinine. Additional Remarks Patient is alert, no SOB, no nausea. Review of Systems General Constitutional: Fatigue Cardiovascular Cardiac: MEZA Gastrointestinal Gastrointestinal: Constipation Objective Data Data 10/08/16 10/09/16 19:00 07:00 Intake Total 1738 ml Output Total 500 ml 750 ml Balance -500 ml 988 ml Intake Oral 730 ml IV Total 1008 ml Output Urine Total 500 ml 750 ml Vital Signs Date Time Temp Pulse Resp B/P Pulse Ox O2 Delivery O2 Flow Rate FiO2 10/09/16 08:19 97.8 61 20 167/78 94 10/09/16 04:36 97.8 57 18 157/73 96 10/09/16 02:15 144/62 10/09/16 01:30 18 10/08/16 23:53 97.9 87 16 175/79 91 10/08/16 19:42 98.5 61 20 172/75 99 10/08/16 15:41 97.7 57 18 155/70 98 10/08/16 12:05 97.5 54 16 156/71 97 -: 10/09/16 0548 10/09/16 0548 Physical Exam General Appearance: No Acute Distress, Comfortable Eyes Eye Exam: Pupils Equal Throat Throat Exam: Oral Mucosa [place] & Moist Neck Neck Exam: Neck Supple Pulmonary Resp Exam: Clear Bilaterally, Breath Sounds Equal, Rhonchi, Decreased Bases Cardiology CV Exam: Regular, Normal Sinus Rhythm Gastrointestinal/Abdomen GI Exam: Soft, Non-Tender, Bowel Sounds Present, Non-Distended Extremeties Extremities Exam: No Edema Neurologic Neuro Exam: Alert, Awake, Oriented Psychiatric Psych Exam: Appropriate Responses Assessment/Plan Assessment Summary: Anemia of CKD, Dehydration, Hypertension, CKD Stage IV Problem List: (1) CAD (coronary artery disease) (2) Diabetic nephropathy (3) HTN (hypertension), benign (4) Hyperkalemia (5) Diabetes mellitus (6) Anemia in chronic kidney disease (CKD) (7) Acute kidney injury superimposed on CKD Plan Patient has advance renal disease. Atrophic kidneys on CT scan. Non oliguric, BP is on higher side. On Metoprolol, started on Amlodipine. Creatinine is still elevated and GFR is 10-11 ml/min. D/W the patient and family in detail about Dialysis, HD and PD. They want to go for HD. Will need PermCath and AVF. Problem Qualifiers (1) Diabetic nephropathy: Qualified Code: E11.21 - Diabetic nephropathy associated with type 2 diabetes mellitus (2) Diabetes mellitus: (3) Anemia in chronic kidney disease (CKD): Qualified Code: N18.5 - Anemia in stage 5 chronic kidney disease, not on chronic dialysis Daphne Davidson MD Oct 09, 2016 10:10
[2016-10-09] MEDS ORDERED: NITROGLYCERIN 0.4 MG SL 25 TABS/BTL SL PRN (10:15)
[2016-10-09] MEDS ORDERED: GELATIN 12 MM/7 MM FOAM TOP PRN (10:15)
[2016-10-09] MEDS ORDERED: ONDANSETRON HCL 4 MG/2 ML VIAL IV PRN (10:15)
[2016-10-09] MEDS ORDERED: SODIUM CHLORIDE 0.9% FLUSH 10 ML FLUSH IV FLUSH PRN (10:15)
[2016-10-09] MEDS ORDERED: MANNITOL 12.5 GM/50 ML VIAL IV PRN (10:15)
[2016-10-09] MEDS ORDERED: diphenhydrAMINE HCL 25 MG CAP PO PRN (10:15)
[2016-10-09] MEDS ORDERED: cloNIDine HCL 0.1 MG TAB PO PRN (10:15)
[2016-10-09] MEDS ORDERED: ALBUMIN HUMAN 25% 25 GM/100 ML BAGP IV PRN (10:15)
[2016-10-09] MEDS ORDERED: HEPARIN SODIUM - IV 10,000 UNITS/10 ML VIAL IVF PRN (10:15)
[2016-10-09] MEDS ORDERED: ACETAMINOPHEN 325 MG TAB PO PRN (10:15)
[2016-10-09] MEDS: FAMOTIDINE 20 MG TAB PO SCH ×2 (10:19→20:30)
[2016-10-09] MEDS: amLODIPine BESYLATE 5 MG TAB PO SCH (10:20)
[2016-10-09] MEDS: TAMSULOSIN HCL 0.4 MG CAP PO SCH (10:20)
[2016-10-09] MEDS: METOPROLOL TARTRATE 100 MG TAB PO SCH ×2 (10:20→20:30)
--- NOTE | 2016-10-09 10:44 | HHI.PR ---
Subjective Remarks No new complaints this morning. UOP 750mL overnight and currently with 300mL in chen bag Objective Vitals Vital Signs Date Time Temp Pulse Resp B/P Pulse Ox O2 Delivery O2 Flow Rate FiO2 10/09/16 08:19 97.8 61 20 167/78 94 10/09/16 04:36 97.8 57 18 157/73 96 10/09/16 02:15 144/62 10/09/16 01:30 18 10/08/16 23:53 97.9 87 16 175/79 91 10/08/16 19:42 98.5 61 20 172/75 99 10/08/16 15:41 97.7 57 18 155/70 98 10/08/16 12:05 97.5 54 16 156/71 97 10/08/16 10/08/16 10/09/16 15:00 23:00 07:00 Intake Total 250 ml 1488 ml Output Total 750 ml 500 ml Balance -500 ml 988 ml Intake Oral 250 ml 480 ml IV Total 1008 ml Output Urine Total 750 ml 500 ml Result Diagram: 10/09/16 0548 10/09/16 0548 Other Results Laboratory Tests Test 10/08/16 10/09/16 06:00 05:48 Sodium Level 140 MEQ/L 135 MEQ/L Potassium Level 4.9 MEQ/L 4.5 MEQ/L Chloride Level 113 MEQ/L 107 MEQ/L Carbon Dioxide Level 20.7 MEQ/L 21.6 MEQ/L Anion Gap 6 MEQ/L 6 MEQ/L Blood Urea Nitrogen 40 MG/DL 46 MG/DL Creatinine 5.18 MG/DL 5.43 MG/DL Estimat Glomerular Filtration 11 ML/MIN 10 ML/MIN Rate Random Glucose 66 MG/DL 146 MG/DL Calcium Level 7.5 MG/DL 7.1 MG/DL White Blood Count 4.1 TH/MM3 Red Blood Count 2.61 MIL/MM3 Hemoglobin 8.4 GM/DL Hematocrit 24.4 % Mean Corpuscular Volume 93.5 FL Mean Corpuscular Hemoglobin 32.1 PG Mean Corpuscular Hemoglobin 34.4 % Concent Red Cell Distribution Width 13.9 % Platelet Count 112 TH/MM3 Mean Platelet Volume 7.3 FL Neutrophils (%) (Auto) 64.4 % Lymphocytes (%) (Auto) 23.9 % Monocytes (%) (Auto) 5.6 % Eosinophils (%) (Auto) 5.6 % Basophils (%) (Auto) 0.5 % Neutrophils # (Auto) 2.6 TH/MM3 Lymphocytes # (Auto) 1.0 TH/MM3 Monocytes # (Auto) 0.2 TH/MM3 Eosinophils # (Auto) 0.2 TH/MM3 Basophils # (Auto) 0.0 TH/MM3 CBC Comment DIFF FINAL Differential Comment Protein Corrected Calcium 7.7 MG/DL Total Protein 5.9 GM/DL Imaging Last 72 hours Impressions Abdomen/Pelvis CT 10/06/16 1425 Signed Impressions: Service Date/Time: Thursday, October 06, 2016 16:51 - CONCLUSION: 1. Questionable inflammatory or edematous changes around the right kidney. No hydronephrosis or obstructive uropathy. Tiny nonobstructing renal calcifications on the left. No acute findings in the remainder of the abdomen and pelvis. 2. Pars defect at the lumbosacral junction with grade 1 anterolisthesis. Prostatic enlargement. Nelson Schilling MD Objective Remarks General: NAD, AAOx3 Chest: CTA Cardiac: Regular Abd: +BS, soft ND/NT Ext: No edema A/P Problem List: (1) Acute kidney injury superimposed on CKD Status: Acute Plan: - Pt with chronic kidney disease, stage 4 due to DM who presented to the ED with constipation and urinary retention. - He was found to have acute worsening of his renal function with Cr 5.44/BUN 36 , GFR 10 - Pt started on IVF hydration. - Pt had Chen catheter placed at admission for monitoring UOP. - Overnight he had out about 700cc of urine and currently has 300cc in Chen bag. - Labs are worse today , Cr 5.43/BUN 46, GFR 10. - Nephrology is following - Cont. IVF - Pt will be planned for PermCath placement today and initiation of HD tomorrow. - Nephrology discussed with the pt AV fistula placement as well. Vascular surgery has been consulted - Monitor labs daily - Urine culture with no growth in 48 hours. - Avoid nephrotoxic medications. - PRN BP control. - DVT prophylaxis with SCDs (2) Diabetic nephropathy Status: Chronic Plan: - A1c was 6.5 in 04/2016. Pt overdue for labs. - Pt wants accu checks backed off to BID - NovoLog SSI (3) Anemia in chronic kidney disease (CKD) Status: Chronic Plan: - Hgb is stable with outpt values. Continue to follow. - Would not use Epogen unless Hb closer to 8 or 8.5 (4) Hyperkalemia Status: Acute Plan: - Recurring issue a/w CKD. Avoiding KANNAN-I and ARB. - Improved with IVF (5) HTN (hypertension), benign Status: Chronic Plan: - Quite volatile at times. - Cont. Metoprolol 100mg po BID. - Norvasc 5mg po daily added on 10/08 - Clonidine prn. - May need to schedule hydralazine. (6) CAD (coronary artery disease) Status: Chronic Plan: - Stable. Continue secondary prevention. (7) Psoriatic arthritis Status: Chronic Plan: - Stable. Outpt care. He has not wanted aggressive intervention Assessment and Plan Patient examined. Assessment and plan formulated with Joan Park PA-C. I agree with the above. a/ckd 4....no improvement with ivf. dm nephropathy discussed with dr Davidson. [facility] today. plan for fistula. arrange outpt HD> Problem Qualifiers (1) Diabetic nephropathy: Qualified Code: E11.21 - Diabetic nephropathy associated with type 2 diabetes mellitus (2) Anemia in chronic kidney disease (CKD): Qualified Code: N18.5 - Anemia in stage 5 chronic kidney disease, not on chronic dialysis Joan Park Oct 09, 2016 10:44 Waldemar Benjamin MD Oct 09, 2016 14:00
--- NOTE | 2016-10-09 12:55 | RADRPT ---
EXAM DATE/TIME: 10/09/2016 11:40 [facility] COMPARISON: No previous studies available for comparison. INDICATIONS : Pre op AV fistula. MEDICAL HISTORY : Myocardial infarction. Gastroesophageal reflux disease. Hypertension. Hearing loss. Transient ischemi c attack. Dementia. Sleep apnea. Hiatal hernia. Renal failure. Psoriatric arthritis. Diabetes. Liver disease. Pernicous anemia. SURGICAL HISTORY : Tonsillectomy. Colon resection. Colostomy. ENCOUNTER: Initial ACUITY: 1 day PAIN SCORE: 0/10 LOCATION: Left arm. FINDINGS: There is spontaneous flow documented in the brachial, basilic, axillary, and subclavian veins. The v essels are compressible and augmentation response is documented. No filling defects are seen. The f low is phasic with respiration. Direction of flow in the jugular vein is caudal. CONCLUSION: Normal examination. Lamont Miranda MD on October 09, 2016 at 12:52 Board Certified Radiologist. This report was verified electronically.
--- NOTE | 2016-10-09 12:56 | RADRPT ---
EXAM DATE/TIME: 10/09/2016 11:56 [facility] COMPARISON: No previous studies available for comparison. INDICATIONS : Pre op AV fistula. MEDICAL HISTORY : Myocardial infarction. Gastroesophageal reflux disease. Hypertension. Hearing loss. Transient ischemi c attack. Dementia. Sleep apnea. Hiatal hernia. Renal failure. Psoriatric arthritis. Diabetes. Liver disease. Pernicous anemia. SURGICAL HISTORY : Tonsillectomy. Colon resection. Colostomy. ENCOUNTER: Initial ACUITY: 1 day PAIN SCORE: 0/10 LOCATION: Left arm. CEPHALIC: ORIGIN: Non-visualized MID-ARM: Non-visualized ELBOW: Non-visualized FOREARM: WRIST: BASILIC: ORIGIN: 3 mm MID-ARM: 2 mm ELBOW: 2 mm ARTERIES: BRACHIAL: 5 mm ULNAR: 2 mm RADIAL: 2 mm VEINS: RADIAL: 2 mm ULNAR: 1 mm FINDINGS: The venous system of the upper extremity is patent by color Doppler imaging. Measurements of the arm veins (in mm) are listed above. CONCLUSION: Cephalic vein is not located. Basilic vein is satisfactory in appearance. Arterial structures are int act. No DVT. Lamont Miranda MD on October 09, 2016 at 12:53 Board Certified Radiologist. This report was verified electronically.
[2016-10-09] MEDS ORDERED: ceFAZolin 2 GM PREMIX 50 ML IV SCH (13:15)
[2016-10-09] MEDS ORDERED: VANCOMYCIN INJ 1,000 MG in SODIUM CHLOR 0.9% 250 ML INJ 250 ML IV SCH (13:15)
[2016-10-09 13:31] LABS: PROTHROMBIN TIME - PATIENT 10.5 SEC (9.8-11.6)
[2016-10-09 14:21] LABS: APTT (PATIENT) 30.6 SEC (24.3-30.1)
[2016-10-09] MEDS ORDERED: fentaNYL CITRATE 250 MCG/5 ML AMP ONE (16:23)
[2016-10-09] MEDS ORDERED: MIDAZOLAM HCL 2 MG/2 ML VIAL ONE ×2 (16:23)
[2016-10-09] MEDS ORDERED: LIDOCAINE 1%/EPINEPHrine 1:100,000 SOLN 20 ML VIAL ONE (16:44)
--- NOTE | 2016-10-09 18:25 | PD.RAD ---
Post Procedure Progress Note Pre Procedure Diagnosis: (1) Acute kidney injury superimposed on CKD Post Procedure Diagnosis: (1) Acute kidney injury superimposed on CKD Procedure Date: Oct 09, 2016 Supervising Radiologist: Lamont Miranda Proceduralist/Assist: Ashia Bryson RT(R) Anesthesia: Local, Conscious Sedation Plan of Activity Patient to Unit: ROPU Patient Condition: Good See PACS Report for procedural detail/treatment Central Venous Access Device Procedure 1 Right Internal Jugular Hemodialysis Catheter Tunneled Placement dual lumen [place]: 15 Additional Detail: 23cm Lamont Barrow II, MD Oct 09, 2016 18:25
[2016-10-09] MEDS ORDERED: HEPARIN SODIUM - IV 2,000 UNITS/2 ML VIAL IV FLUSH PRN (18:30)
[2016-10-09] MEDS ORDERED: SODIUM CHLORIDE 0.9% FLUSH 10 ML FLUSH IVF PRN (18:30)
--- NOTE | 2016-10-09 18:42 | RADRPT ---
EXAM DATE/TIME: 10/09/2016 16:40 [facility] COMPARISON: No previous studies available for comparison. INDICATIONS : Patient with a history of renal disease, needs dialysis. MEDICAL HISTORY : Anemia Kidney disease Diabetes HTN Hyperkalemia Neuropathy Prior LA Osteoporosis Psoriatic arthropathy Vitamin D def SURGICAL HISTORY : Inguinal hernia Partial colectomy with bladder repair ENCOUNTER: Initial ACUITY: 3 days PAIN SCORE: 0/10 FLUORO TIME: 0.8 minutes IMAGE SERIES: 1 SEDATION TIME: 45 minutes ACCESS: Right internal jugular vein SEDATION: 1.) 1.5 mg midazolam (Versed) IV 2.) 75 mcg fentanyl (Sublimaze) IV Prophylactic antibiotics were administered with appropriate pre-procedure timing. Vancomycin within 2 hours of procedure, Ancef (or alternative) within 1 hour of procedure. DEVICE: 1. 15 Welsh dual lumen 23 cm Patrick II Plus catheter PROCEDURE : 1. Ultrasound-guided venipuncture. 2. PermaCath placement. 3. Conscious sedation with continuous EKG and oximetry monitoring. The risks, benefits and alternatives to the procedure were explained and verbal and written consent w as obtained. The site was prepped in sterile fashion. Full sterile technique was used, including ca p, mask, sterile gloves and gown and a large sterile sheet. Hand hygiene and 2% chlorhexidine and/or betadine/alcohol prep was utilized per protocol for cutaneous antisepsis. The skin and subcutaneous tissues were infiltrated with local anesthetic solution. With ultrasound and fluoroscopic guidance a dermatotomy was created over the prescribed vein. A micr opuncture set was used to access the targeted vein and serial dilatation was performed to accept the prescribed length catheter. A subcutaneous tunnel was created in a retrograde fashion the catheter w as pulled through the tunnel. The catheter was flushed and assembled and locked with heparin. The c atheter was sutured in place. Conscious sedation was performed with the prescribed dosages and duration as above in the presence of an independent trained radiology nurse to assist in the monitoring of the patient. EKG and oximetry remained stable throughout the procedure. The patient tolerated the procedure well and there were n o complications. The patient was sent to post anesthesia recovery in stable condition. CONCLUSION: Uncomplicated PermaCath placement as above. Lamont Miranda MD on October 09, 2016 at 18:40 Board Certified Radiologist. This report was verified electronically.
[2016-10-10] VITALS (9 sets, daily range): BP systolic 137–162; BP diastolic 66–84; PULSE 65–86; RESP 16–20; TEMP 96–97.5; O2SAT 90–98
[2016-10-10] MEDS: SODIUM BICARBONATE 8.4% INJ 50 MEQ in SODIUM CHLOR 0.45% 1000 ML INJ 1,000 ML IV SCH (03:34)
[2016-10-10 05:48] LABS: AUTOMATED NEUTROPHIL # 3.2 TH/MM3 (1.8-7.7); BASOPHIL % 0.1 % (0.0-2.0); EOSINOPHIL # 0.2 TH/MM3 (0-0.4); EOSINOPHIL % 4.7 % (0.0-4.0); HEMATOCRIT 23.8 % (39.0-51.0); HEMO FLAGS DIFF FINAL; LYMPH % 17.1 % (9.0-44.0); LYMPHOCYTE # 0.8 TH/MM3 (1.0-4.8); MEAN CELL VOLUME 93.3 FL (80.0-100.0); MEAN CORPUSCULAR HEMOGLOBIN 32.3 PG (27.0-34.0); MEAN CORPUSCULAR HGB CONC 34.6 % (32.0-36.0); MONO % 7.1 % (0.0-8.0); PLATELET COUNT 127 TH/MM3 (150-450); RED BLOOD COUNT 2.55 MIL/MM3 (4.50-5.90); RED CELL DISTRIBUTION WIDTH 14.2 % (11.6-17.2); WHITE BLOOD COUNT 4.5 TH/MM3 (4.0-11.0)
[2016-10-10 06:08] LABS: ANION GAP 12 MEQ/L (5-15); BICARBONATE 20.5 MEQ/L (21.0-32.0); BLOOD UREA NITROGEN 43 MG/DL (7-18); CHLORIDE 108 MEQ/L (98-107); GLOMERULAR FILTRATION RATE 11 ML/MIN (>89); MAGNESIUM 1.7 MG/DL (1.5-2.5); POTASSIUM 4.7 MEQ/L (3.5-5.1); SODIUM (NA) 140 MEQ/L (136-145); TRANSFERRIN IRON PROFILE 161 MG/DL (200-360)
[2016-10-10 06:11] LABS: FERRITIN 156 NG/ML (26-388)
[2016-10-10] MEDS: ACETAMINOPHEN 325 MG TAB PO PRN ×3 (06:41→22:57)
[2016-10-10] MEDS: INSULIN ASPART SUPPLEMENTAL SCALE SQ SCH ×2 (07:00→19:00)
[2016-10-10] MEDS: FAMOTIDINE 20 MG TAB PO SCH ×2 (09:00→20:33)
[2016-10-10] MEDS: amLODIPine BESYLATE 5 MG TAB PO SCH (09:00)
[2016-10-10] MEDS: VITAMIN B CMPLX/VITC/FOLIC AC CAP PO SCH (09:00)
[2016-10-10] MEDS: TAMSULOSIN HCL 0.4 MG CAP PO SCH (09:00)
[2016-10-10] MEDS: CALCITRIOL 0.25 MCG CAP PO SCH (09:00)
[2016-10-10] MEDS: METOPROLOL TARTRATE 100 MG TAB PO SCH ×2 (09:00→20:34)
--- NOTE | 2016-10-10 09:07 | HHI.PR ---
Subjective Remarks going for HD Objective Vitals heart reg lung cta abd s/nt ext no edema perm cath. Vital Signs Date Time Temp Pulse Resp B/P Pulse Ox O2 Delivery O2 Flow Rate FiO2 10/10/16 07:30 97.5 86 20 148/73 94 10/10/16 04:00 96.5 70 16 140/66 93 10/10/16 00:00 96.0 65 16 148/70 98 10/09/16 20:00 96.3 78 18 152/71 91 10/09/16 20:00 96.3 78 18 152/71 91 10/09/16 18:29 97.1 75 20 180/82 93 Manual Cuff/Auscultation 10/09/16 17:15 97.2 71 18 170/68 92 10/09/16 12:55 97.5 58 18 182/74 97 154/74 10/09/16 10/09/16 10/10/16 15:00 23:00 07:00 Intake Total 828 ml 650 ml Output Total 600 ml 775 ml Balance 228 ml -125 ml Intake Oral 240 ml IV Total 588 ml 650 ml Output Urine Total 600 ml 775 ml Result Diagram: 10/10/16 0440 10/10/16 0440 Imaging Last 72 hours Impressions Abdomen/Pelvis CT 10/06/16 1425 Signed Impressions: Service Date/Time: Thursday, October 06, 2016 16:51 - CONCLUSION: 1. Questionable inflammatory or edematous changes around the right kidney. No hydronephrosis or obstructive uropathy. Tiny nonobstructing renal calcifications on the left. No acute findings in the remainder of the abdomen and pelvis. 2. Pars defect at the lumbosacral junction with grade 1 anterolisthesis. Prostatic enlargement. Nelson Schilling MD A/P Problem List: (1) Acute kidney injury superimposed on CKD Status: Acute Plan: - Pt with chronic kidney disease, stage 4 due to DM who presented to the ED with constipation and urinary retention. - He was found to have acute worsening of his renal function with Cr 5.44/BUN 36 , GFR 10 - Pt started on IVF hydration. - Pt had Chen catheter placed at admission for monitoring UOP. - His bun/cr and gfr failed to improve - PermCath placement 10/09 - HD initiated today 10/10 - Nephrology discussed with the pt AV fistula placement as well. Vascular surgery has been consulted - Urine culture with no growth in 48 hours. - Avoid nephrotoxic medications. - PRN BP control. - DVT prophylaxis with SCDs - d/c chen and ivf (2) Diabetic nephropathy Status: Chronic Plan: - A1c was 6.5 in 04/2016. Pt overdue for labs. - Pt wants accu checks backed off to BID - NovoLog SSI (3) Anemia in chronic kidney disease (CKD) Status: Chronic Plan: - Hgb is stable with outpt values. Continue to follow. - Would not use Epogen unless Hb closer to 8 or 8.5 (4) Hyperkalemia Status: Acute Plan: - Recurring issue a/w CKD. Avoiding KANNAN-I and ARB. - Improved with IVF (5) HTN (hypertension), benign Status: Chronic Plan: - Quite volatile at times. - Cont. Metoprolol 100mg po BID. - Norvasc 5mg po daily added on 10/08 - Clonidine prn. - May need to schedule hydralazine. (6) CAD (coronary artery disease) Status: Chronic Plan: - Stable. Continue secondary prevention. (7) Psoriatic arthritis Status: Chronic Plan: - Stable. Outpt care. He has not wanted aggressive intervention Problem Qualifiers (1) Diabetic nephropathy: Qualified Code: E11.21 - Diabetic nephropathy associated with type 2 diabetes mellitus (2) Anemia in chronic kidney disease (CKD): Qualified Code: N18.5 - Anemia in stage 5 chronic kidney disease, not on chronic dialysis Waldemar Benjamin MD Oct 10, 2016 09:07
[2016-10-10] MEDS: EPOETIN ALFA 10,000 UNITS/ML VIAL IV PRN (09:59)
[2016-10-10] MEDS: GENTAMICIN SULFATE (DIALYSIS USE ONLY) 20 MG/2 ML VIAL IV PRN (09:59)
[2016-10-10] MEDS: HEPARIN SODIUM - IV 10,000 UNITS/10 ML VIAL PRN (09:59)
[2016-10-10] MEDS: SODIUM CHLOR 0.9% 1000 ML INJ 1,000 ML IV PRN (10:00)
--- NOTE | 2016-10-10 11:24 | HHI.NPPN ---
Subjective History of Present Illness 70-year-old male with past medical history of chronic kidney disease, hypertension, ischemic heart disease, hyperlipidemia, chronic anemia was brought to the hospital because of severe constipation and decreased urine output. I was called to see the patient because of elevated BUN and creatinine. Additional Remarks Patient is alert, no SOB, no nausea, seen after the HD. Review of Systems General Constitutional: Fatigue Cardiovascular Cardiac: MEZA Gastrointestinal Gastrointestinal: Constipation Objective Data Data 10/09/16 10/10/16 19:00 07:00 Intake Total 828 ml 650 ml Output Total 600 ml 775 ml Balance 228 ml -125 ml Intake Oral 240 ml IV Total 588 ml 650 ml Output Urine Total 600 ml 775 ml Vital Signs Date Time Temp Pulse Resp B/P Pulse Ox O2 Delivery O2 Flow Rate FiO2 10/10/16 10:28 94 10/10/16 07:30 97.5 86 20 148/73 94 10/10/16 04:00 96.5 70 16 140/66 93 10/10/16 00:00 96.0 65 16 148/70 98 10/09/16 20:00 96.3 78 18 152/71 91 10/09/16 20:00 96.3 78 18 152/71 91 10/09/16 18:29 97.1 75 20 180/82 93 Manual Cuff/Auscultation 10/09/16 17:15 97.2 71 18 170/68 92 10/09/16 12:55 97.5 58 18 182/74 97 154/74 -: 10/10/16 0440 10/10/16 0440 Physical Exam General Appearance: No Acute Distress, Comfortable Eyes Eye Exam: Pupils Equal Throat Throat Exam: Oral Mucosa [place] & Moist Neck Neck Exam: Neck Supple Pulmonary Resp Exam: Clear Bilaterally, Breath Sounds Equal, Rhonchi, Decreased Bases Cardiology CV Exam: Regular, Normal Sinus Rhythm Gastrointestinal/Abdomen GI Exam: Soft, Non-Tender, Bowel Sounds Present, Non-Distended Extremeties Extremities Exam: No Edema Neurologic Neuro Exam: Alert, Awake, Oriented Psychiatric Psych Exam: Appropriate Responses Assessment/Plan Assessment Summary: Anemia of CKD, Dehydration, Hypertension, CKD Stage IV Problem List: (1) CAD (coronary artery disease) (2) Diabetic nephropathy (3) HTN (hypertension), benign (4) Hyperkalemia (5) Diabetes mellitus (6) Anemia in chronic kidney disease (CKD) (7) Acute kidney injury superimposed on CKD Plan Patient has advance renal disease. Atrophic kidneys on CT scan. Non oliguric, BP is on higher side. On Metoprolol, started on Amlodipine. Creatinine is still elevated and GFR is 10-11 ml/min. Has advance end stage renal disease. Got PermCath and HD done today. Will need AVF. Problem Qualifiers (1) Diabetic nephropathy: Qualified Code: E11.21 - Diabetic nephropathy associated with type 2 diabetes mellitus (2) Diabetes mellitus: (3) Anemia in chronic kidney disease (CKD): Qualified Code: N18.5 - Anemia in stage 5 chronic kidney disease, not on chronic dialysis Daphne Davidson MD Oct 10, 2016 11:24
--- NOTE | 2016-10-10 11:51 | PD.CAR.PN ---
CVT Progress Note Subjective/Hospital Course: Patient seen and evaluated Full consult dictated For AV fistula left arm Wednesday Thanks J Objective: Vital Signs Date Time Temp Pulse Resp B/P Pulse Ox O2 Delivery O2 Flow Rate FiO2 10/10/16 10:28 94 10/10/16 07:30 97.5 86 20 148/73 94 10/10/16 04:00 96.5 70 16 140/66 93 10/10/16 00:00 96.0 65 16 148/70 98 10/09/16 20:00 96.3 78 18 152/71 91 10/09/16 20:00 96.3 78 18 152/71 91 10/09/16 18:29 97.1 75 20 180/82 93 Manual Cuff/Auscultation 10/09/16 17:15 97.2 71 18 170/68 92 10/09/16 12:55 97.5 58 18 182/74 97 154/74 Labs: Laboratory Tests Test 10/10/16 04:40 White Blood Count 4.5 TH/MM3 (4.0-11.0) Red Blood Count 2.55 MIL/MM3 (4.50-5.90) Hemoglobin 8.2 GM/DL (13.0-17.0) Hematocrit 23.8 % (39.0-51.0) Mean Corpuscular Volume 93.3 FL (80.0-100.0) Mean Corpuscular Hemoglobin 32.3 PG (27.0-34.0) Mean Corpuscular Hemoglobin 34.6 % Concent (32.0-36.0) Red Cell Distribution Width 14.2 % (11.6-17.2) Platelet Count 127 TH/MM3 (150-450) Mean Platelet Volume 7.6 FL (7.0-11.0) Neutrophils (%) (Auto) 71.0 % (16.0-70.0) Lymphocytes (%) (Auto) 17.1 % (9.0-44.0) Monocytes (%) (Auto) 7.1 % (0.0-8.0) Eosinophils (%) (Auto) 4.7 % (0.0-4.0) Basophils (%) (Auto) 0.1 % (0.0-2.0) Neutrophils # (Auto) 3.2 TH/MM3 (1.8-7.7) Lymphocytes # (Auto) 0.8 TH/MM3 (1.0-4.8) Monocytes # (Auto) 0.3 TH/MM3 (0-0.9) Eosinophils # (Auto) 0.2 TH/MM3 (0-0.4) Basophils # (Auto) 0.0 TH/MM3 (0-0.2) CBC Comment DIFF FINAL Differential Comment Sodium Level 140 MEQ/L (136-145) Potassium Level 4.7 MEQ/L (3.5-5.1) Chloride Level 108 MEQ/L (98-107) Carbon Dioxide Level 20.5 MEQ/L (21.0-32.0) Anion Gap 12 MEQ/L (5-15) Blood Urea Nitrogen 43 MG/DL (7-18) Creatinine 5.24 MG/DL (0.60-1.30) Estimat Glomerular Filtration 11 ML/MIN (>89) Rate Random Glucose 96 MG/DL (74-106) Calcium Level 7.8 MG/DL (8.5-10.1) Magnesium Level 1.7 MG/DL (1.5-2.5) Iron Level 37 MCG/DL (65-175) Total Iron Binding Capacity 225 MCG/DL (250-450) Percent Iron Saturation 16.4 % (20-50) Ferritin 156 NG/ML (26-388) Result Diagram: 10/10/1643910/10/16439 Hernandez Ness MD Oct 10, 2016 11:51
--- NOTE | 2016-10-10 12:38 | MB ---
cc: HERNANDEZ KEY MD DATE OF CONSULTATION: 10/10/2016. REASON FOR CONSULTATION: Chronic renal failure with need for permanent access for dialysis. HISTORY OF PRESENT ILLNESS: This pleasant 71-year-old gentleman presents with a chronic renal insufficiency in progression, hypertension, coronary artery disease and hyperlipidemia. The patient noted that he had decreased urine output and was severely constipated. He was worked up and found to have rising creatinine, and at this point he probably will need dialysis. The question arises about permanent access. The patient had a temporary catheter placed. PAST MEDICAL HISTORY: 1. Chronic renal insufficiency as above-noted. 2. Longstanding diabetes mellitus. 3. Chronic anemia. 4. Ischemic cardiomyopathy with left ventricular hypertrophy. 5. Repeated urinary tract infections. SOCIAL HISTORY: The patient does not smoke and does not drink. ALLERGIES: NO ALLERGIES. MEDICATIONS: Medications can be found on the record. PHYSICAL EXAMINATION: GENERAL: The physical examination reveals a pleasant 71-year-old male awake, alert, oriented. HEAD, EYES, EARS, NOSE, THROAT: Normocephalic. No trauma to the head. Pupils equal and reactive. Extraocular muscles intact. NECK: The neck is supple. Bilateral carotid pulses. Faint right-sided bruit. CHEST: Clear. Bilateral breath sounds. HEART: Regular rhythm. ABDOMEN: Soft. Midline scar noted from previous colon surgery and additional scar from previous colostomy. PELVIS: Stable. EXTREMITIES: The patient has palpable femoral and dorsalis pedis pulses with a Dopplerable posterior tibial pulse. He has palpable brachial, radial and ulnar pulses. His arms are very thin and he has somewhat atrophic musculature. Venous ultrasound has been reviewed with mapping and while those do not reveal particularly encouraging sized veins, just examining the patient seems to be a little better and the veins appear to be small but probably adequate for an AV fistula on the upper arm. Therefore, the patient will be scheduled for the same on Wednesday. I discussed this with the patient in detail. Thank you very much for the referral. CRITICAL CARE TIME: Thirty-eight (38) minutes. Hernandez VICK/AZAEL /11:45 AM /12:28 PM
[2016-10-10] MEDS: IRON SUCROSE INJ 200 MG in SODIUM CHLORIDE 0.9% INJ 100 ML IV SCH (13:46)
[2016-10-11] VITALS (13 sets, daily range): BP systolic 108–151; BP diastolic 62–83; PULSE 79–119; RESP 16–20; TEMP 96.5–98.3; O2SAT 91–96
[2016-10-11] MEDS: ACETAMINOPHEN 325 MG TAB PO PRN ×2 (06:01→19:51)
[2016-10-11] MEDS ORDERED: RESP: ALBUTEROL 2.5 MG/IPRATROPIUM 0.5 MG NEB (SCH) NEB ONE (06:30)
--- NOTE | 2016-10-11 06:52 | RADRPT ---
EXAM DATE/TIME: 10/11/2016 06:12 [facility] COMPARISON: CHEST SINGLE AP, February 12, 2015, 10:40. INDICATIONS : Shortness of breath MEDICAL HISTORY : Renal failure, chronic. Diabetes mellitus type II. Hypertension. [place] SURGICAL HISTORY : Inguinal hernia repair. ENCOUNTER: Subsequent ACUITY: 3 days PAIN SCORE: 8/10 LOCATION: Bilateral chest FINDINGS: A single view of the chest demonstrates interstitial prominence and cardiomegaly. Right-sided tunnel catheter with tip in the right atrium. The cardiomediastinal contours are unremarkable. Osseous stru ctures are intact. CONCLUSION: Cardiomegaly and slight interstitial prominence. Nelson Rosales MD on October 11, 2016 at 6:50 Board Certified Radiologist. This report was verified electronically.
--- NOTE | 2016-10-11 08:53 | HHI.PR ---
Subjective Remarks reportedly has some sob earlier no doing ok. some mild lower abdomen bloating. small bm yesterday. Objective Vitals heartreg lung cta abd s/nabs/nt ext no edema Vital Signs Date Time Temp Pulse Resp B/P Pulse Ox O2 Delivery O2 Flow Rate FiO2 10/11/16 08:00 97.0 93 16 119/80 95 10/11/16 07:11 16 10/11/16 04:00 97.2 88 18 143/75 96 10/11/16 01:00 79 132/63 10/11/16 00:00 98.1 86 19 151/75 92 10/10/16 23:50 97.5 83 18 162/75 90 10/10/16 20:32 92 21 10/10/16 20:00 96.3 85 18 144/67 93 10/10/16 17:52 96.4 72 18 137/84 93 10/10/16 12:00 96.0 75 20 145/68 94 10/10/16 10:28 94 10/10/16 10/10/16 10/11/16 15:00 23:00 07:00 Intake Total 240 ml 240 ml 120 ml Output Total 900 ml 300 ml 650 ml Balance -660 ml -60 ml -530 ml Intake Oral 240 ml 240 ml 120 ml Output Urine Total 400 ml 300 ml 650 ml Hemodialysis 500 ml # Voids 0 # Bowel Movements 1 0 Result Diagram: 10/10/16 0440 10/10/16 0440 Imaging Last 72 hours Impressions Abdomen/Pelvis CT 10/06/16 1425 Signed Impressions: Service Date/Time: Thursday, October 06, 2016 16:51 - CONCLUSION: 1. Questionable inflammatory or edematous changes around the right kidney. No hydronephrosis or obstructive uropathy. Tiny nonobstructing renal calcifications on the left. No acute findings in the remainder of the abdomen and pelvis. 2. Pars defect at the lumbosacral junction with grade 1 anterolisthesis. Prostatic enlargement. Nelson Schilling MD A/P Problem List: (1) Acute kidney injury superimposed on CKD Status: Acute Plan: - Pt with chronic kidney disease, stage 4 due to DM who presented to the ED with constipation and urinary retention. - He was found to have acute worsening of his renal function with Cr 5.44/BUN 36 , GFR 10 - Pt started on IVF hydration. - Pt had Seay catheter placed at admission for monitoring UOP. - His bun/cr and gfr failed to improve - PermCath placement 10/09 - HD initiated on 10/10 - Seay removed 10/10 - Nephrology discussed with the pt AV fistula placement as well. Vascular surgery has been consulted and Dr Echevarria will place fistula on 10/12 - Urine culture with no growth - Avoid nephrotoxic medications. - PRN BP control. - DVT prophylaxis with SCDs - check pvr bladder scan today. (2) Diabetic nephropathy Status: Chronic Plan: - A1c was 6.5 in 04/2016. Pt overdue for labs. - Pt wants accu checks backed off to BID - NovoLog SSI (3) Anemia in chronic kidney disease (CKD) Status: Chronic Plan: - related to ckd. - per renal. (4) Hyperkalemia Status: Acute Plan: - Recurring issue a/w CKD. Avoiding KANNAN-I and ARB. - Improved with IVF (5) HTN (hypertension), benign Status: Chronic Plan: - Quite volatile at times. - Cont. Metoprolol 100mg po BID. - Norvasc 5mg po daily added on 10/08 - Clonidine prn. - May need to schedule hydralazine. (6) CAD (coronary artery disease) Status: Chronic Plan: - Stable. Continue secondary prevention. (7) Psoriatic arthritis Status: Chronic Plan: - Stable. Outpt care. He has not wanted aggressive intervention Problem Qualifiers (1) Diabetic nephropathy: Qualified Code: E11.21 - Diabetic nephropathy associated with type 2 diabetes mellitus (2) Anemia in chronic kidney disease (CKD): Qualified Code: N18.5 - Anemia in stage 5 chronic kidney disease, not on chronic dialysis Waldemar Benjamin MD Oct 11, 2016 08:53
[2016-10-11] MEDS ORDERED: RESP: ALBUTEROL 2.5 MG/IPRATROPIUM 0.5 MG NEB (PRN) NEB (09:00)
[2016-10-11] MEDS ORDERED: LACTULOSE SYRUP 20 GM/30 ML CUP PO ONE (09:15)
[2016-10-11] MEDS: CALCITRIOL 0.25 MCG CAP PO SCH (09:23)
[2016-10-11] MEDS: FAMOTIDINE 20 MG TAB PO SCH ×2 (09:23→20:28)
[2016-10-11] MEDS: TAMSULOSIN HCL 0.4 MG CAP PO SCH (09:23)
[2016-10-11] MEDS: METOPROLOL TARTRATE 100 MG TAB PO SCH ×2 (09:23→20:28)
[2016-10-11] MEDS: amLODIPine BESYLATE 5 MG TAB PO SCH (09:23)
[2016-10-11] MEDS: VITAMIN B CMPLX/VITC/FOLIC AC CAP PO SCH (09:23)
--- NOTE | 2016-10-11 12:50 | HHI.NPPN ---
Subjective History of Present Illness 70-year-old male with past medical history of chronic kidney disease, hypertension, ischemic heart disease, hyperlipidemia, chronic anemia was brought to the hospital because of severe constipation and decreased urine output. I was called to see the patient because of elevated BUN and creatinine. Additional Remarks Patient is alert, no SOB, no nausea, has constipation and bad taste in mouth. Review of Systems General Constitutional: Fatigue Cardiovascular Cardiac: MEZA Gastrointestinal Gastrointestinal: Constipation Objective Data Data 10/10/16 10/11/16 19:00 07:00 Intake Total 240 ml 360 ml Output Total 900 ml 950 ml Balance -660 ml -590 ml Intake Oral 240 ml 360 ml Output Urine Total 400 ml 950 ml Hemodialysis 500 ml # Voids 0 # Bowel Movements 1 Vital Signs Date Time Temp Pulse Resp B/P Pulse Ox O2 Delivery O2 Flow Rate FiO2 10/11/16 08:00 97.0 93 16 119/80 95 10/11/16 07:11 16 10/11/16 04:00 97.2 88 18 143/75 96 10/11/16 01:00 79 132/63 10/11/16 00:00 98.1 86 19 151/75 92 10/10/16 23:50 97.5 83 18 162/75 90 10/10/16 20:32 92 21 10/10/16 20:00 96.3 85 18 144/67 93 10/10/16 17:52 96.4 72 18 137/84 93 -: 10/10/16 0440 10/10/16 0440 Physical Exam General Appearance: No Acute Distress, Comfortable Eyes Eye Exam: Pupils Equal Throat Throat Exam: Oral Mucosa [place] & Moist Neck Neck Exam: Neck Supple Pulmonary Resp Exam: Clear Bilaterally, Breath Sounds Equal, Rhonchi, Decreased Bases Cardiology CV Exam: Regular, Normal Sinus Rhythm Gastrointestinal/Abdomen GI Exam: Soft, Non-Tender, Bowel Sounds Present, Non-Distended Extremeties Extremities Exam: No Edema Neurologic Neuro Exam: Alert, Awake, Oriented Psychiatric Psych Exam: Appropriate Responses Assessment/Plan Assessment Summary: Anemia of CKD, Dehydration, Hypertension, CKD Stage IV Problem List: (1) CAD (coronary artery disease) (2) Diabetic nephropathy (3) HTN (hypertension), benign (4) Hyperkalemia (5) Diabetes mellitus (6) Anemia in chronic kidney disease (CKD) (7) Acute kidney injury superimposed on CKD Plan Patient has advance renal disease. Atrophic kidneys on CT scan. Non oliguric, BP is on higher side. On Metoprolol, started on Amlodipine. Creatinine is still elevated and GFR is 10-11 ml/min. Has advance end stage renal disease. Got PermCath and HD started. Vascular surgery consult appreciated, for AVF in AM. Problem Qualifiers (1) Diabetic nephropathy: Qualified Code: E11.21 - Diabetic nephropathy associated with type 2 diabetes mellitus (2) Diabetes mellitus: (3) Anemia in chronic kidney disease (CKD): Qualified Code: N18.5 - Anemia in stage 5 chronic kidney disease, not on chronic dialysis Daphne Davidson MD Oct 11, 2016 12:50
[2016-10-11] MEDS ORDERED: ALUMINUM/MAGNESIUM/SIMETH 30 ML CUP PO PRN (14:30)
[2016-10-11] MEDS ORDERED: ALUMINUM/MAGNESIUM/SIMETH 30 ML CUP PO ONE (14:30)
[2016-10-11] MEDS: IRON SUCROSE INJ 200 MG in SODIUM CHLORIDE 0.9% INJ 100 ML IV SCH (18:15)
[2016-10-11] MEDS: INSULIN ASPART SUPPLEMENTAL SCALE SQ SCH (19:00)
[2016-10-11] MEDS ORDERED: LACTULOSE SYRUP 20 GM/30 ML CUP PO PRN (21:00)
[2016-10-12] VITALS (50 sets, daily range): BP systolic 110–161; BP diastolic 59–89; PULSE 67–135; RESP 18–40; TEMP 97.6–98; O2SAT 86–100
[2016-10-12 00:44] LABS: BLOOD GAS BASE EXCESS -1.9 mmol/L (-2-2); BLOOD GAS CARBOXYHEMOGLOBIN 1.7 % (0-4); BLOOD GAS HCO3 23 mmol/L (22-26); BLOOD GAS METHEMOGLOBIN 0.6 % (0-2); BLOOD GAS O2 HGB SATURATION 94 % (90-100); BLOOD GAS OXYGEN CONTENT 12.2 Vol % (12.0-20.0); BLOOD GAS PCO2 41 mmHg (38-42); BLOOD GAS PO2 88 mmHG (61-120); BLOOD GAS TOTAL HGB 9.2 G/DL (12.0-16.0); CRITICAL VALUE NO; DRAW SITE LT RADIAL; LITER FLOW 15 L/M; NUMBER OF ARTERIAL PUNCTURES 1; OXYGEN DEVICE NRB; TEMP CORR TO 98.6
[2016-10-12 00:45] LABS: STAT YES; ULNAR PULSE PRESENT
[2016-10-12] MEDS ORDERED: traMADol HCL 50 MG TAB PO ONE (01:00)
--- NOTE | 2016-10-12 01:00 | RADRPT ---
EXAM DATE/TIME: 10/12/2016 00:29 [facility] COMPARISON: CHEST SINGLE AP, October 11, 2016, 6:12. INDICATIONS : Short of breath. MEDICAL HISTORY : Renal failure, chronic. Diabetes mellitus type II. Hypertension. [place] SURGICAL HISTORY : Inguinal hernia repair. ENCOUNTER: Subsequent ACUITY: 4 - 6 days PAIN SCORE: 0/10 LOCATION: Bilateral chest FINDINGS: Interval development of airspace opacities throughout the right lung and dense consolidation left mid and lower lung causing loss of delineation of the entire left hemidiaphragm. There is also loss of delineation of the lateral right hemidiaphragm. The heart is stable in size. There is engorgement a nd indistinctness of the central and upper bronchopulmonary markings. Double lumen central line tip remains projected in the right atrium. CONCLUSION: Interval development of significant airspace opacities throughout the right lung and dense consolidat ion left lower lobe. Miles Acosta MD on October 12, 2016 at 0:57 Board Certified Radiologist. This report was verified electronically.
--- NOTE | 2016-10-12 01:01 | RADRPT ---
EXAM DATE/TIME: 10/12/2016 00:30 [facility] COMPARISON: No previous studies available for comparison. INDICATIONS : Abdomen pain. MEDICAL HISTORY : Renal failure, chronic. Diabetes mellitus type II. Hypertension. [place] SURGICAL HISTORY : Inguinal hernia repair. ENCOUNTER: Subsequent ACUITY: 4 - 6 days PAIN SCORE: 0/10 LOCATION: Bilateral abdomen FINDINGS: Consolidation in the medial left lower lung with loss of delineation of the left hemidiaphragm. Ther e is blunting of the right costophrenic angle. No dilated loops of small or large bowel. Skin stapl es about the lower pelvis. Moderate degenerative changes in both hips. CONCLUSION: No dilated loops of small or large bowel. Left lower lobe consolidation and blunting of the right co stophrenic angle. Miles Acosta MD on October 12, 2016 at 0:59 Board Certified Radiologist. This report was verified electronically.
[2016-10-12 01:41] LABS: AUTOMATED NEUTROPHIL # 6.5 TH/MM3 (1.8-7.7); BASOPHIL % 0.1 % (0.0-2.0); EOSINOPHIL % 0.1 % (0.0-4.0); HEMO FLAGS DIFF FINAL; LYMPH % 5.8 % (9.0-44.0); LYMPHOCYTE # 0.4 TH/MM3 (1.0-4.8); MEAN CELL VOLUME 95.2 FL (80.0-100.0); MEAN CORPUSCULAR HEMOGLOBIN 31.5 PG (27.0-34.0); MEAN CORPUSCULAR HGB CONC 33.1 % (32.0-36.0); MONO % 7.7 % (0.0-8.0); NEUT % 86.3 % (16.0-70.0); PLATELET COUNT 155 TH/MM3 (150-450); RED BLOOD COUNT 2.73 MIL/MM3 (4.50-5.90); RED CELL DISTRIBUTION WIDTH 14.5 % (11.6-17.2); WHITE BLOOD COUNT 7.5 TH/MM3 (4.0-11.0)
--- NOTE | 2016-10-12 01:54 | HHI.PR ---
Addendum to Inpatient Note Addendum Reason: Additional Documentation Additional Information Subjective Residents paged to evaluate 71-year-old male with history of diabetes, ischemic heart disease, end-stage renal disease on hemodialysis admitted for abdominal pain and chest pain. Patient had sudden onset lower abdominal pain, different than the pain he had on admission. At time of evaluation, he was also noted to have a new oxygen requirement of a nonrebreather mask, increased from 2 L of nasal cannula. Patient had just received a dose of Restoril. According to nursing report, his breathing had been labored for the last several days, and seemed the same at time of evaluation. Objective Gen.: Well-developed, well-nourished elderly white male lying in bed appearing fatigued, in moderate distress Vitals: HR 89, RR 18-20, T 97.2, BP 122/81, SpO2 98% on non-rebreather Respiratory: Breathing appearing labored. Lungs with diminished breath sounds bilaterally, worse in right lung up to mid landin as opposed to solely in left lower lobe. Wet crackles in the right lower lobes and left lower lobes, again worse on the right. Cardiovascular: Normal rate, regular rhythm, normal S1/S2, no murmur Abdomen: Soft, nondistended, tender to palpation in the suprapubic region. No rebound or guarding. Neuro: Initially drowsy but awoken to name and to touch. Followed commands. EKG: Sinus tachycardia with ?RBBB (RBBB appeared stable from prior EKG). CXR: New right sided infiltrate suggestive of pulmonary edema to right mid landin, LLL infiltrate KUB: No dilated loops of small or large bowel ABG on NRB: pH 7.36, HCO3 - 23 Reassessment: Patient awake and alert, oriented x3. States breathing feels to him the same as it had been. Speaking in short sentences. Still appearing mildly fatigued, but less distress than first evaluation. Lower abdominal pain resolved. Assessment and Plan 71 year old male with h/o DM, ischemic heart Dz, ESRD with plan for AVF placement in the AM now with lower abdominal pain and new oxygen requirement. Well's score 1.5 --> PE probability 4% (low risk) - CBC, CMP, Troponin, Lactic acid - Discussed with Dr. Jiang, appreciate assistance - Transfer to ICU for closer monitoring of respiratory status - Discussed with Dr. Davidson, appreciate assistance - Dr. Davidson to arrange urgent dialysis through patient's PermCath prior to AVF placement - Primary team to be notified by staffing consultant of patient's status change and transfer to ICU - Tramadol 50 mg PO once for pain (patient takes at home); continue PRN Tylenol sdw Gilberto Walsh MD R2 Oct 12, 2016 01:54
[2016-10-12 01:56] LABS: ALT (GPT) 7 U/L (12-78); ANION GAP 10 MEQ/L (5-15); AST (GOT) 23 U/L (15-37); BICARBONATE 25.8 MEQ/L (21.0-32.0); BLOOD UREA NITROGEN 37 MG/DL (7-18); CHLORIDE 103 MEQ/L (98-107); GLOMERULAR FILTRATION RATE 12 ML/MIN (>89); SODIUM (NA) 139 MEQ/L (136-145)
[2016-10-12 02:00] LABS: ALKALINE PHOSPHATASE 75 U/L (45-117); TOTAL BILIRUBIN ADULT 0.5 MG/DL (0.2-1.0)
[2016-10-12] MEDS: CHLORHEXIDINE GLUCONATE 2 % 1 PACK (2 CLOTHS)(taper/protocol) TOPICAL SCH (04:00)
[2016-10-12] MEDS ORDERED: CHLORHEXIDINE GLUCONATE 2 % 1 PACK (2 CLOTHS)(extra cloths) TOPICAL PRN (04:00)
[2016-10-12] MEDS: EPOETIN ALFA 10,000 UNITS/ML VIAL IV PRN (05:41)
[2016-10-12] MEDS: SODIUM CHLOR 0.9% 1000 ML INJ 1,000 ML IV PRN (05:41)
[2016-10-12] MEDS: HEPARIN SODIUM - IV 10,000 UNITS/10 ML VIAL PRN (05:41)
[2016-10-12] MEDS: GENTAMICIN SULFATE (DIALYSIS USE ONLY) 20 MG/2 ML VIAL IV PRN (05:41)
[2016-10-12] MEDS: INSULIN ASPART SUPPLEMENTAL SCALE SQ SCH ×2 (06:40→20:49)
[2016-10-12] MEDS: METOPROLOL TARTRATE 100 MG TAB PO SCH ×2 (09:00→20:54)
[2016-10-12] MEDS ORDERED: INFLUENZA VIRUS VACCINE (QUADRIVALENT) 0.5 ML SYR IM ONE (09:00)
[2016-10-12] MEDS: VITAMIN B CMPLX/VITC/FOLIC AC CAP PO SCH (09:00)
--- NOTE | 2016-10-12 09:14 | MB ---
cc: EDIE GRANT DATE OF CONSULTATION: 10/12/2016 INDICATION [id number] NM. HISTORY OF PRESENT ILLNESS A 71-year-old gentleman who has history of diabetes, coronary disease, hypertension, who has recently undergone partial colectomy and presented with history of 5 days of constipation. The patient presented back on October 06 with abdominal pain relieved somewhat with Tylenol. He also had some vomiting for 2 days. When he first presented he was noted to have acute kidney injury superimposed on chronic renal insufficiency. The patient states he had been anuric. He reports about 4 years ago he had a heart attack, does not recall any revascularization or heart catheterization. On October 09 he underwent hemodialysis catheter placement. Following that procedure he developed what he describes as substernal chest pain with an elephant sitting on his chest. He thought it was related to the port that had been placed in the right subclavicular region. Electrocardiogram shows right bundle-branch block with some dynamic ST and T-wave abnormality. He was seen by Dr. Ness and scheduled potentially for AV fistula placement today. Sometime early this morning it looks like he developed atrial fibrillation with rapid ventricular rate. Troponin was drawn which was elevated at 1.84, no prior troponins were available for comparison. He currently denies any chest pain. We were consulted for further recommendations. PAST MEDICAL HISTORY 1. Anemia. 2. Chronic kidney disease. 3. Diabetes. 4. Dyslipidemia. 5. Hypertension. 6. Neuropathy. 7. Coronary disease. 8. Prior myocardial infarction. 9. Osteoporosis. 10. Hyperparathyroidism. MEDICATIONS His reported medication at home: 1. Aspirin. 2. Calcium. 3. Glimepiride. 4. Metoprolol. 5. Zantac. 6. Tums. 7. Vitamin D. ALLERGIES NO KNOWN DRUG ALLERGIES. SOCIAL HISTORY Quit smoking in 1969. Occasional alcohol use. No drug use. REVIEW OF SYSTEMS 12-point review of systems was performed, negative unless otherwise noted in the history of present illness. PHYSICAL EXAMINATION VITAL SIGNS: Temperature is normal. Heart rate is 120 beats per minute, blood pressure 135/78 mmHg. GENERAL: Alert and oriented x3, minimal distress, Venti-mask on. NECK: Jugular veins not distended. No carotid bruits. No lymphadenopathy. LUNGS: Clear to auscultation bilaterally with decreased breath sounds throughout, mild end-expiratory wheeze. CARDIOVASCULAR: Irregularly, irregular rhythm without murmurs, rubs or gallops. ABDOMEN: Mildly distended. EXTREMITIES: Show no clubbing, cyanosis or edema. Good peripheral pulses. Cranial nerves intact. Motor sensory grossly intact. LABORATORY DATA WBC 7.5, hemoglobin 8.6, platelet count 155, INR is 1. Sodium 139, potassium 5.0, BUN 37, creatinine 4.8, troponins 1.84. ELECTROCARDIOGRAM Electrocardiogram shows sinus rhythm, incomplete right bundle-branch block, minor T-wave abnormality to the anterior lateral precordial leads. ASSESSMENT 1. [id number] NM. 2. Diverticulitis status post partial colectomy. 3. Diabetes, hypertension, hyperlipidemia, history of coronary disease with prior myocardial infarction. PLAN Based on the electrocardiographic changes, elevated troponin, suggestive symptoms, think that the patient did sustain a cardiovascular event, acute coronary syndrome. He is currently chest pain free. Troponins elevated more so than what would be expected along with his renal insufficiency. In combination with his EKG changes, I think he is going to need a left heart catheterization. Will have to discuss with the team doctor, Dr. Puentes, Dr. Ness in addition to Dr. Davidson as to the best timing. How much of the contrast is going to have an effect on the kidneys but he seems to be already committed to dialysis. Will keep n.p.o. after breakfast, possible left heart cath later today. Atrial fibrillation. Will get a 2-D echocardiogram. We are going to start him on a Cardizem drip for rate control. Since we do know the time of onset we could consider direct current cardioversion during the cardiac catheterization. MD JOSE Acosta/RONALD /8:30 AM /8:49 AM
[2016-10-12] MEDS: DILTIAZEM 125 MG/NS 100 ML IV SCH ×2 (09:33)
--- NOTE | 2016-10-12 10:20 | HHI.PR ---
Subjective Remarks Pt had some respiratory insufficiency last night and was transferred to ICU. He developed A. fib RVR and had some previous complaints of chest pain and was evaluated by Cardiology and is planned for C on 10/12. Pt still in A. fib RVR on telemetry with HR in the 130's He had Seay cath replaced last night. Currently with 400mL in Seay bag Objective Vitals Vital Signs Date Time Temp Pulse Resp B/P Pulse Ox O2 Delivery O2 Flow Rate FiO2 10/12/16 06:00 124 10/12/16 05:00 114 21 135/78 98 10/12/16 04:45 105 20 128/76 98 10/12/16 04:30 117 26 119/74 96 10/12/16 04:15 104 20 147/81 97 10/12/16 04:02 106 24 130/71 93 10/12/16 04:01 105 25 143/82 86 10/12/16 04:00 114 25 91 10/12/16 04:00 114 10/12/16 03:00 94 Non-Rebreather 15.00 10/12/16 02:54 97.7 81 24 124/71 100 10/12/16 02:10 15 10/12/16 01:00 Non-Rebreather 15.00 10/12/16 01:00 90 28 128/77 100 10/12/16 00:20 95 15.00 100 10/12/16 00:06 117 10/11/16 23:47 93 Nasal Cannula 3.00 10/11/16 23:30 97.2 88 16 122/81 91 10/11/16 20:36 18 10/11/16 20:36 18 10/11/16 20:06 90 10/11/16 20:05 110 10/11/16 20:00 97.1 119 20 143/83 92 10/11/16 16:00 98.3 91 16 142/70 94 10/11/16 14:15 97.6 85 20 136/73 96 10/11/16 12:00 98.0 79 20 141/71 96 10/11/16 10:30 92 Nasal Cannula 2.00 10/11/16 10/11/16 10/12/16 14:59 22:59 06:59 Intake Total 100 ml 60 ml Output Total 250 ml Balance 100 ml -190 ml Intake Oral 100 ml 60 ml Output Urine Total 250 ml # Voids 6 3 0 # Bowel Movements 4 3 0 Result Diagram: 10/12/16 0117 10/12/16 0117 Other Results Laboratory Tests Test 10/12/16 10/12/16 10/12/16 00:25 01:17 02:25 Blood Gas Puncture Site LT RADIAL Blood Gas Patient Temperature 98.6 Blood Gas HCO3 23 mmol/L Blood Gas Base Excess -1.9 mmol/L Blood Gas Oxygen Saturation 94 % Arterial Blood pH 7.36 Arterial Blood Partial 41 mmHg Pressure CO2 Arterial Blood Partial 88 mmHG Pressure O2 Arterial Blood Oxygen Content 12.2 Vol % Arterial Blood 1.7 % Carboxyhemoglobin Arterial Blood Methemoglobin 0.6 % Blood Gas Hemoglobin 9.2 G/DL Oxygen Delivery Device NRB Blood Gas Liter Flow 15 L/M White Blood Count 7.5 TH/MM3 Red Blood Count 2.73 MIL/MM3 Hemoglobin 8.6 GM/DL Hematocrit 26.0 % Mean Corpuscular Volume 95.2 FL Mean Corpuscular Hemoglobin 31.5 PG Mean Corpuscular Hemoglobin 33.1 % Concent Red Cell Distribution Width 14.5 % Platelet Count 155 TH/MM3 Mean Platelet Volume 7.4 FL Neutrophils (%) (Auto) 86.3 % Lymphocytes (%) (Auto) 5.8 % Monocytes (%) (Auto) 7.7 % Eosinophils (%) (Auto) 0.1 % Basophils (%) (Auto) 0.1 % Neutrophils # (Auto) 6.5 TH/MM3 Lymphocytes # (Auto) 0.4 TH/MM3 Monocytes # (Auto) 0.6 TH/MM3 Eosinophils # (Auto) 0.0 TH/MM3 Basophils # (Auto) 0.0 TH/MM3 CBC Comment DIFF FINAL Differential Comment Sodium Level 139 MEQ/L Potassium Level 5.0 MEQ/L Chloride Level 103 MEQ/L Carbon Dioxide Level 25.8 MEQ/L Anion Gap 10 MEQ/L Blood Urea Nitrogen 37 MG/DL Creatinine 4.80 MG/DL Estimat Glomerular Filtration 12 ML/MIN Rate Random Glucose 168 MG/DL Lactic Acid Level 1.2 mmol/L Calcium Level 8.0 MG/DL Total Bilirubin 0.5 MG/DL Aspartate Amino Transf 23 U/L (AST/SGOT) Alanine Aminotransferase 7 U/L (ALT/SGPT) Alkaline Phosphatase 75 U/L Troponin I 1.84 NG/ML Total Protein 6.9 GM/DL Albumin 2.5 GM/DL Nasal Screen MRSA (PCR) MRSA NOT DETECTED Imaging Last Impressions Abdomen X-Ray 10/12/16 0038 Signed Impressions: Service Date/Time: Wednesday, October 12, 2016 00:30 - CONCLUSION: No dilated loops of small or large bowel. Left lower lobe consolidation and blunting of the right costophrenic angle. Miles Acosta MD Chest X-Ray 10/12/16 0000 Signed Impressions: Service Date/Time: Wednesday, October 12, 2016 00:29 - CONCLUSION: Interval development of significant airspace opacities throughout the right lung and dense consolidation left lower lobe. Miles Acosta MD Upper Extremity Ultrasound 10/09/16 0000 Signed Impressions: Service Date/Time: Sunday, October 09, 2016 11:40 - CONCLUSION: Normal examination. Lamont Miranda MD Catheter Placement X-Ray 10/09/16 0000 Signed Impressions: Service Date/Time: Sunday, October 09, 2016 16:40 - CONCLUSION: Uncomplicated PermaCath placement as above. Lamont Miranda MD Abdomen/Pelvis CT 10/06/16 1425 Signed Impressions: Service Date/Time: Thursday, October 06, 2016 16:51 - CONCLUSION: 1. Questionable inflammatory or edematous changes around the right kidney. No hydronephrosis or obstructive uropathy. Tiny nonobstructing renal calcifications on the left. No acute findings in the remainder of the abdomen and pelvis. 2. Pars defect at the lumbosacral junction with grade 1 anterolisthesis. Prostatic enlargement. Nelson Schilling MD Last 72 hours Impressions Abdomen/Pelvis CT 10/06/16 1425 Signed Impressions: Service Date/Time: Thursday, October 06, 2016 16:51 - CONCLUSION: 1. Questionable inflammatory or edematous changes around the right kidney. No hydronephrosis or obstructive uropathy. Tiny nonobstructing renal calcifications on the left. No acute findings in the remainder of the abdomen and pelvis. 2. Pars defect at the lumbosacral junction with grade 1 anterolisthesis. Prostatic enlargement. Nelson Schilling MD Objective Remarks General: NAD, AAOx3 Chest: CTA Cardiac: Irregular, tachy Abd: +BS, soft ND/NT Seay cath in place with dark tea colored urine present Ext: No edema A/P Problem List: (1) Acute kidney injury superimposed on CKD Status: Acute Plan: - Pt with chronic kidney disease, stage 4 due to DM who presented to the ED with constipation and urinary retention. - He was found to have acute worsening of his renal function with Cr 5.44/BUN 36 , GFR 10 - Pt started on IVF hydration. - Pt had Seay catheter placed at admission for monitoring UOP. - His bun/cr and gfr failed to improve - PermCath placement 10/09 - HD initiated on 10/10 - Seay removed 10/10 - Nephrology discussed with the pt AV fistula placement as well. Vascular surgery was consulted and AVF had been planned for 10/12 but pt had some respiratory insufficiency last night and was transferred to ICU. - Pt developed A. fib RVR and had some previous complaints of chest pain and was evaluated by Cardiology and is planned for C on 10/12. - Urine culture with no growth - Seay cath replaced on 10/12 - Avoid nephrotoxic medications. - PRN BP control. - DVT prophylaxis with SCDs (2) NSTEMI (non-ST elevated myocardial infarction) Status: Acute Plan: - Pt had complained of some chest pain following PermCath placement - He was noted to have EKG changes, including RBBB and ST and T-wave changes, with an elevated troponin of 1.84, and with his previous complaints of chest pain it was felt that the patient did sustain a cardiovascular event. - He is currently chest pain free. - Cardiology was consulted - Pt was recommended evaluation with [facility] today - Pt is NPO currently (3) Atrial fibrillation with RVR Status: Acute Plan: - Pt developed A. fib RVR overnight last night. - 2D echocardiogram is ordered. - Pt was started on Cardizem drip for rate control. Pt currently with HR in the 130's on telemetry (4) Diabetic nephropathy Status: Chronic Plan: - A1c was 6.5 in 04/2016. Pt overdue for labs. - Pt wants accu checks backed off to BID - NovoLog SSI (5) Anemia in chronic kidney disease (CKD) Status: Chronic Plan: - related to ckd. - per renal. (6) Hyperkalemia Status: Acute Plan: - Recurring issue a/w CKD. Avoiding KANNAN-I and ARB. - Improved with IVF (7) HTN (hypertension), benign Status: Chronic Plan: - Quite volatile at times. - Cont. Metoprolol 100mg po BID. - Norvasc 5mg po daily added on 10/08 - Clonidine prn. - May need to schedule hydralazine. (8) CAD (coronary artery disease) Status: Chronic Plan: - Stable. Continue secondary prevention. (9) Psoriatic arthritis Status: Chronic Plan: - Stable. Outpt care. He has not wanted aggressive intervention Assessment and Plan Patient examined. Assessment and plan formulated with Joan Park PA-C. I agree with the above. Pt is currently Chest pain free. NO c/o palpitations. Pt will have LHC this afternoon with Dr. Ortiz. Cr much improved today 2.65 (10/12/16) Repeat BMP in AM. HR improved on cardizem gtt, HR in the 80s in NSR. Problem Qualifiers (1) Diabetic nephropathy: Qualified Code: E11.21 - Diabetic nephropathy associated with type 2 diabetes mellitus (2) Anemia in chronic kidney disease (CKD): Qualified Code: N18.5 - Anemia in stage 5 chronic kidney disease, not on chronic dialysis Joan Park Oct 12, 2016 10:20 Mahendra Puentes DO Oct 12, 2016 11:39
[2016-10-12] MEDS: FAMOTIDINE 20 MG TAB PO SCH ×2 (11:10→20:46)
[2016-10-12] MEDS: CALCITRIOL 0.25 MCG CAP PO SCH (11:10)
[2016-10-12] MEDS: TAMSULOSIN HCL 0.4 MG CAP PO SCH (11:11)
[2016-10-12] MEDS: amLODIPine BESYLATE 5 MG TAB PO SCH (11:12)
[2016-10-12 11:22] LABS: BICARBONATE 29.1 MEQ/L (21.0-32.0); POTASSIUM 3.7 MEQ/L (3.5-5.1)
[2016-10-12] MEDS ORDERED: HEPARIN-NS/PF INJ 500 ML ONE (13:36)
[2016-10-12] MEDS ORDERED: HEPARIN SODIUM - IV 10,000 UNITS/10 ML VIAL ONE (13:36)
[2016-10-12] MEDS ORDERED: MIDAZOLAM HCL 2 MG/2 ML VIAL ONE (13:37)
[2016-10-12] MEDS: IRON SUCROSE INJ 200 MG in SODIUM CHLORIDE 0.9% INJ 100 ML IV SCH (14:00)
[2016-10-12] MEDS ORDERED: MISC INFORMATION XX ONE (14:45)
--- NOTE | 2016-10-12 14:45 | CATHPROC ---
[employer] HIS Report Study Information Study Number Admission Scheduled Start Study Start [id number] Oct 09 2016 9:44AM 10/12/2016 Oct 12 2016 1:38PM [place] [facility] Cardiac Catheterization Admit Source Facility Department Other [facility] - Location Director Physician and Clinical Staff Initial Martin Estevez Proposal Manager Mera Patel,BSRN Proposal Manager Julianna Alberto,RN Other cathlab, cathlab Recorder Jodie Aguirre,RT(R) TECH2 Scrub Hyun Johnson,MOTEL KEEPER TECH2 X-Ray Simon Simmons,RT(R) Procedures Performed Procedure Location (Site) Vessel Name Coronary Angiograms LCA Left Coronary Coronary Angiograms RCA Right Coronary Wire insertion Radial (right) Radial Art. Equipment Time Legal Mediator Description Size Mfg Part Number Used/Scraped TRANSDUCER, TRUWAVE [id number] 13:40 [employer] LAUGHLIN * Used W/STOCKCOCK *[id number] *[id number] *[id number] 13:40 [facility] PACK, CCL CUSTOM * Used *[id number] 13:40 [facility] SUPPORT, ARTERIAL ADULT 09260 *[id number] Used [id number] 13:40 [employer] PACER PEN, SKIN DUAL W/ RULER * Used *[id number] BAND, RADIAL COMPRESSION TR [id number] 14:22 [place] [place] 24CM Used SHORT 24 *[id number] BAND, RADIAL COMPRESSION TR [id number] 14:22 [employer] [place] 24CM Used SHORT 24 *[id number] SHEATH, FR6 RADIAL PRELUDE 13:[address] [facility] [employer] FR 6 [id number] Used EASE 11CM SHEATH, FR6 RADIAL PRELUDE 14:[address] [facility] [employer] FR 6 [id number] Used EASE 11CM [id number] 13:40 [employer] [place] WIRE, EXCHANGE 260CM 3MMJ 260CM Used *[id number] 13:40 [employer] OMNIPAQUE, 350 MG, 150ML 150ML [id number] Used [id number] 13:40 [facility] BLANKET,WARM AIR CCL * Used *[id number] Equipment Model, Serial, Lot Number and Expiration Data Description Model Number Serial Number Lot Number Expiration Date SHEATH, FR6 RADIAL PRELUDE [id number] 12-30-2019 EASE 11CM History: Current Medications Medication Dosage/Unit Route Frequency Last Date/Time Taken Beta Caitlin NORVASC LOPRESSOR NTG SL History: Allergies Allergy Reaction No Known Allergies History: Risk Factors Family History of Hypertension Dyslipidemia Previous KS Previous Heart Failure Premature CAD Yes Yes No Yes Yes Prior Valve Prior PCI Prior CABG Surgery No No No Cerebrovascular Peripheral Artery Chronic Lung On Dialysis Diabetes Diabetes Therapy Disease Disease Disease Yes Yes No No Yes Insulin History: Symptoms/Diagnosis Selection Items Chest pain History: Stress Tests Stress or Imaging Studies Performed No History: Other Disease Selection Items HTN History: Other Current Smoker Method Quit Packs a Day Years Used Pack Years No Cigarettes 47 Years Ago 1 15 15 Labs Hgb (g/dl) Hct (%) WBC (l/cumm) Platelets (thousands) 11.60-17.00 35.00-51.00 4.00-11.00 150.00-450.00 8.6 26 7.5 155 Glucose (mg/dl) BUN (mg/dl) Creatinine (mg/dl) BUN:Creatinine (1:x) 74.00-106.00 7.00-18.00 0.50-1.30 10.00-20.00 138 17 2.6 6.5 Na (meq/l) K (meq/l) Cl (meq/l) CO2 (mmol/L) Ca (mg/dl) 136.00-145.00 3.50-5.10 98.00-107.00 21.00-32.00 8.50-10.10 139 5 103 25.8 8 INR (PTT:PT) 0.90-1.10 1 Troponin I (ng/ml) CPK-MB (ng/ML) 0.02-0.05 0.50-3.60 1.84 Not Drawn Medication Medication Total Dose (Bolus/Oral) Medication Total Dosage/Unit 1% XYLOCAINE 20 mL FENTANYL 25 mcg VERSED 1 mg Medications (Bolus/Oral) Medication Time Given Dosage/Unit Administered By Reason VERSED 10/12/2016 1:59:41 PM 1 mg Julianna Alberto For sedation 1 mg VERSED given in lab by Julianna Alberto, ALFRED in Right Antecubital via Peripheral IV. Ordered by Martin Rubio. Reason: For sedation. FENTANYL 10/12/2016 2:01:26 PM 25 mcg Julianna Alberto 25 mcg FENTANYL given in lab by Julianna Alberto RN in Right Antecubital via Peripheral IV. Ordered by Martin Ortiz. 1% XYLOCAINE 10/12/2016 2:04:48 PM 20 mL Martin Ortiz 20 mL 1% XYLOCAINE given in lab by Martin Ortiz in Right Radial via Subcutaneous. Medication (Drip) Medication Time Given Dosage/Unit Concentration/Unit Diluent (ml) Solutio n IV Solutions 10/12/2016 1:37:58 PM 0 mL (IV) 500 NaCl .9 Patient arrived on IV Solutions given by cathlab, cathlab in Left Antecubital via Peripheral IV. Pump /Drip Flow = 20 ml/hr using NaCl .9. Ordered by Martin Ortiz. IV Solutions 10/12/2016 1:37:58 PM 0 mL (IV) 500 NaCl .9 Patient arrived on IV Solutions given by cathlab, cathlab in Right Antecubital via Peripheral IV. Pum p/Drip Flow = 20 ml/hr using NaCl .9. Ordered by Martin Ortiz. Initial Case Assessment Cardiovascular HR Rhythm NIBP Chest Pain 82 sr 126/67 0 Edema Present Skin color Skin None Normal Warm Dry Circulatory - Right Pulses Dorsalis Pedis Femoral Radial 2 2 2 Scale (0,1,2,3,4,d) Circulatory - Left Pulses Dorsalis Pedis Femoral Radial 2 2 Scale (0,1,2,3,4,d) Neurological State Oriented to time-place- Alert Moves all extremities person Respiration - General Respiration Rate SpO2 (%) (B/min) 18 97 Final Case Assessment Cardiovascular HR Rhythm NIBP Chest Pain 89 sr 117/71 0 Edema Present Skin color Skin None Normal Warm Dry Circulatory - Right Pulses Dorsalis Pedis Femoral Radial 2 2 2 Scale (0,1,2,3,4,d) Circulatory - Left Pulses Dorsalis Pedis Femoral Radial 2 2 Scale (0,1,2,3,4,d) Neurological State Oriented to time-place- Alert Moves all extremities person Respiration - General Respiration Rate SpO2 (%) (B/min) 18 97 Chronological Log Time Study Chronological Log 13:30:41 Patient arrived via Bed. 13:37:46 Patient Name, D.O.B, / Armband Verified By R.N. 13:37:47 Pre-op and post- op instructions given; patient acknowledges understanding of instructions. 13:37:49 Presedation assessment performed by Location Director RN. 13:37:51 Patient has been NPO for More than 6Hrs. 13:37:51 Skin Breakdown-none per patient 13:37:53 Patient Warmer Placed on the Table. 13:37:54 Maria E Prominences Protected 13:37:56 A # 20 IV was noted in the Antecubital (right). Grade = 0 13:37:57 A # 20 IV was noted in the Antecubital (left). Grade = 0 Patient arrived on IV Solutions given by cathlab, cathlab in Left Antecubital via Peripheral IV . Pump/Drip Flow = 20 13:37:58 ml/hr using NaCl .9. Ordered by Martin Ortiz. Patient arrived on IV Solutions given by cathlab, cathlab in Right Antecubital via Peripheral I V. Pump/Drip Flow = 20 13:37:58 ml/hr using NaCl .9. Ordered by Martin Ortiz. Vitals capture started with the following parameters, Patient=Adult, Interval=5 min, Initial Pr xmkrun=458 mmHg, 13:38:00 Deflation Rate=5 mmHg 13:38:09 History and physical on the chart or being dictated. 13:38:36 HR=96 bpm, YOFJ=655/81 mmhg, SpO2=97 %, Resp=18 B/min, Pain=0, Giovanni=10, Das=2 13:43:35 HR=93 bpm, TRIN=811/74 mmhg, SpO2=97.0 %, Resp=23 B/min, Pain=0, Giovanni=10, Das=2 Assessment: Initial Case, HR=82 BPM, Rhythm=sr, NKMQ=476/67 mmhg, Chest Pain=0, Edema=None, Col or=Normal, Skin = Warm, Dry Right Pulses: Benjamín Ped=2, Femoral=2, Radial=2 13:45:41 Left Pulses: Benjamín Ped=2, Femoral=2 Neurological: State=Alert, Ox3, HODGE Respiration: Resp=18 B/min, SpO2=97 % 13:46:51 Left Radial and groin(s) prepped with 2% chlorhexidine, and with a 3 min. waiting time. 13:46:59 Reference ECG taken 13:48:36 HR=85 bpm, BNMD=661/74 mmhg, SpO2=97.0 %, Resp=21 B/min, Pain=0, Giovanni=10, Das=2 13:50:38 Pressure channel 1 zeroed. 13:53:37 HR=83 bpm, YPMA=718/72 mmhg, SpO2=99.0 %, Resp=20 B/min, Pain=0, Giovanni=10, Das=2 13:55:00 MD paged 13:57:30 MD arrived. 13:58:36 HR=82 bpm, STZV=918/67 mmhg, SpO2=99.0 %, Resp=20 B/min, Pain=0, Giovanni=10, Das=2 1 mg VERSED given in lab by Julianna Alberto, ALFRED in Right Antecubital via Peripheral IV. Ordere d by Martin Ortiz. 13:59:41 Reason: For sedation. 25 mcg FENTANYL given in lab by Julianna Alberto, ALFRED in Right Antecubital via Peripheral IV. Or dered by Angel, 14:01:26 Martin. 14:03:37 HR=85 bpm, HFHK=963/67 mmhg, SpO2=97.0 %, Resp=18 B/min, Pain=0, Giovanni=10, Das=2 Time Out. Correct patient, correct procedure,correct physician, ,power injector not loaded with contrast with surgical 14:04:10 team present. Time Out Concurred by MD, individual staff and AWAKE OVERNIGHT MONITOR in procedure 14:04:23 Case Start 14:04:48 20 mL 1% XYLOCAINE given in lab by Martin Ortiz in Right Radial via Subcutaneous. 14:08:38 HR=84 bpm, HAKE=299/67 mmhg, SpO2=97.0 %, Resp=18 B/min, Pain=0, Giovanni=10, Das=2 14:08:39 Access site was Radial Artery. A SHEATH, FR6 RADIAL PRELUDE EASE 11CM FR 6 was advanced into the Radial (right) using the Perc utaneous 14:08:52 technique. 14:09:11 [address] was sutured in place. 14:10:35 A WIRE, EXCHANGE 260CM 3MMJ 260CM was inserted via Radial (right). A JL 3.5 INFINITI CATHETER FR 6 was advanced over a wire. OMNIPAQUE, 350 MG, 150ML 150ML was us ed for 14:10:49 injections. Recorded Pressure: LV, HR=85, Condition=Condition 1 14:12:01 (Left Ventricle) LV 128/8/17 Recorded Pressure: LV, Ao, HR=85, Condition=Condition 1 14:12:27 (Left Ventricle) LV 132/7/25, (Aorta) Ao 122/61/88 14:13:15 The RCA was injected and visualized at various angles. OMNIPAQUE, 350 MG, 150ML 150ML used . 14:13:37 HR=75 bpm, UVOM=781/64 mmhg, SpO2=96.0 %, Resp=20 B/min, Pain=0, Giovanni=10, Das=2 14:14:55 Catheter was removed A JL 3.5 INFINITI CATHETER FR 6 was advanced over a wire. OMNIPAQUE, 350 MG, 150ML 150ML was us ed for 14:14:57 injections. Recorded Pressure: Ao, HR=68, Condition=Condition 1 14:16:45 (Aorta) Ao 112/49/73 14:17:02 The LCA was injected and visualized at various angles. OMNIPAQUE, 350 MG, 150ML 150ML used . 14:18:38 HR=80 bpm, HQWE=029/56 mmhg, SpO2=97.0 %, Resp=18 B/min, Pain=0, Giovanni=10, Das=2 14:22:34 Catheter was removed Assessment: Final Case, HR=89 BPM, Rhythm=sr, GTOM=402/71 mmhg, Chest Pain=0, Edema=None, Minier r=Normal, Skin = Warm, Dry Right Pulses: Benjamín Ped=2, Femoral=2, Radial=2 14:23:00 Left Pulses: Benjamín Ped=2, Femoral=2 Neurological: State=Alert, Ox3, HODGE Respiration: Resp=18 B/min, SpO2=97 % 14:23:35 HR=88 bpm, VIGO=071/71 mmhg, SpO2=96.0 %, Resp=19 B/min, Pain=0, Giovanni=10, Das=2 14:24:21 Case End 14:24:51 No case complications noted. 14:24:54 Cine recording checked. 14:24:56 Bedside Report will be given. 14:25:05 Contrast Scanned 14:35:15 IMC called. Spoke to assistant unit forester 14:35:41 Patient moved to stretcher End Study - Contrast Media Used In Study Contrast Total Opened (mL) Total Used (mL) Total Wasted (mL) Omnipaque 40 40 0 End Study - Maximum Contrast Load Max Contrast Load (mL) 134.4 End Study - Radiation Exposure Fluoro Time (minutes) 3.4 End Study - Patient Disposition Complications Transferred To No Critical Care Bed
--- NOTE | 2016-10-12 15:06 | MA ---
cc: EDIE GRANT DATE: 10/12/2016 PROCEDURE PERFORMED 1. Fluoroscopy with interpretation. 2. Left heart catheterization. 3. Coronary angiography. METHOD The risks, benefits and alternatives were discussed with the patient. The patient understood and consented to the procedure. The patient was brought into the catheterization lab, placed on the catheterization table. Right wrist was prepped and draped in sterile fashion. Right wrist was anesthetized with 2% lidocaine. Right radial artery was cannulated and a 6-Uzbek 7 cm sheath was placed without difficulty. LEFT HEART CATHETERIZATION A 6-Uzbek JR-5 catheter was advanced across the aortic valve without difficulty. Intraventricular hemodynamics measured at 110/12 mmHg. Left end-diastolic pressure of 14 mmHg. No significant aortic stenosis by transaortic valve or pullback gradient. CORONARY ANGIOGRAPHY 1. Left main coronary has 30% distal stenosis. 2. Left anterior descending coronary has moderate calcium present throughout its proximal to mid course. There is 60% stenosis throughout. In the mid segment just prior to a diagonal branch bifurcation there is a 90% stenosis. The ostium of the diagonal is smaller caliber size vessel with a 90% stenosis. The remainder of the left anterior descending coronary artery wraps around the inferoapex, has mild to moderate diffuse disease. 3. Left circumflex gives rise to an obtuse marginal branch and sub-branch. The mid left circumflex has a 70% stenosis. The mid obtuse marginal branch at the level of the sub-branch has 90% stenosis. 4. Right coronary is dominant vessel giving rise to a posterior descending branch. Right coronary has ostial 75% stenosis and mid 75% stenosis and a distal 80% stenosis with small vessel diffuse disease. CONCLUSION 1. Severe habematolel three-vessel coronary artery disease. 2. Normal left-sided filling pressures. PLAN Given the severity and extent of disease, will consult cardiothoracic surgery for consideration of surgical revascularization, although we will have to determine whether or note he has decent targets. If he is not a surgical candidate, then we will have to decide whether percutaneous intervention or medical management would be his best approach. We will discuss that with both the patient and the family. MD JOSE Acosta/RONALD /2:32 PM /2:55 PM
--- NOTE | 2016-10-12 15:09 | PD.CAR.PN ---
CVT Progress Note Subjective/Hospital Course: Patient seen and evaluated Full consult dictated For AV fistula left arm Wednesday Cathy J 10/12/16 Patient was initially scheduled today for an AV fistula of the left arm, however he developed the cardiac complications including rapid A. fib with RVR and respiratory insufficiency. AV fistula creation is completely elective procedure and therefore this should wait the patient is improved and stable for surgery Objective: Vital Signs Date Time Temp Pulse Resp B/P Pulse Ox O2 Delivery O2 Flow Rate FiO2 10/12/16 13:00 75 40 99 10/12/16 12:45 85 31 136/67 98 10/12/16 12:30 83 26 130/69 100 10/12/16 12:15 80 26 124/70 100 10/12/16 12:00 97.8 87 23 123/66 95 10/12/16 11:45 88 29 130/66 99 10/12/16 11:30 83 26 129/66 100 10/12/16 11:15 88 23 136/74 99 10/12/16 11:00 81 28 127/70 100 10/12/16 10:45 92 36 141/75 92 10/12/16 10:31 135 38 161/69 89 10/12/16 10:24 98 Partial Rebreather 10/12/16 10:15 104 26 130/67 94 10/12/16 10:00 126 36 141/83 93 10/12/16 09:45 125 22 135/89 98 10/12/16 09:30 127 31 120/77 97 10/12/16 09:00 116 26 114/87 97 10/12/16 08:30 128 24 129/78 99 10/12/16 08:00 97.8 119 26 114/81 98 10/12/16 07:30 134 25 146/74 88 10/12/16 07:00 124 29 137/69 99 10/12/16 06:00 124 10/12/16 05:00 114 21 135/78 98 10/12/16 04:45 105 20 128/76 98 10/12/16 04:30 117 26 119/74 96 10/12/16 04:15 104 20 147/81 97 10/12/16 04:02 106 24 130/71 93 10/12/16 04:01 105 25 143/82 86 10/12/16 04:00 114 25 91 10/12/16 04:00 114 10/12/16 03:00 94 Non-Rebreather 15.00 10/12/16 02:54 97.7 81 24 124/71 100 10/12/16 02:10 15 10/12/16 01:00 Non-Rebreather 15.00 10/12/16 01:00 90 28 128/77 100 10/12/16 00:20 95 15.00 100 10/12/16 00:06 117 10/11/16 23:47 93 Nasal Cannula 3.00 10/11/16 23:30 97.2 88 16 122/81 91 10/11/16 20:36 18 10/11/16 20:36 18 10/11/16 20:06 90 10/11/16 20:05 110 10/11/16 20:00 97.1 119 20 143/83 92 10/11/16 16:00 98.3 91 16 142/70 94 Labs: Laboratory Tests Test 10/12/16 09:30 Sodium Level 137 MEQ/L (136-145) Potassium Level 3.7 MEQ/L (3.5-5.1) Chloride Level 98 MEQ/L (98-107) Carbon Dioxide Level 29.1 MEQ/L (21.0-32.0) Anion Gap 10 MEQ/L (5-15) Blood Urea Nitrogen 17 MG/DL (7-18) Creatinine 2.65 MG/DL (0.60-1.30) Estimat Glomerular Filtration 24 ML/MIN (>89) Rate Random Glucose 138 MG/DL (74-106) Calcium Level 8.1 MG/DL (8.5-10.1) Result Diagram: 10/12/16 0117 10/12/16 0930 Hernandez Ness MD Oct 12, 2016 15:09
[2016-10-12] MEDS ORDERED: IOHEXOL 350 MG/ML 50 ML BTL (for Cath Lab) OTHER ONE (15:25)
[2016-10-12] MEDS: ACETAMINOPHEN 325 MG TAB PO PRN (15:35)
[2016-10-12] MEDS ORDERED: BACITRACIN OINT 0.9 GM PKT TOP ONE (16:00)
--- NOTE | 2016-10-12 16:07 | EKG ---
Date Performed: 10/12/2016 Time Performed: 10:03:52 PTAGE: 71 years EKG: ATRIAL FIBRILLATION WITH RAPID VENTRICULAR RESPONSE BORDERLINE LEFT AXIS DEVIATION INCOMPLE TE RIGHT BUNDLE BRANCH BLOCK ST DEVIATION AND MARKED T-WAVE ABNORMALITY, CONSIDER ANTEROLATERAL ISCHE SETH ABNORMAL ECG PREVIOUS TRACING : 10/12/2016 00.56 Compared to previous tracing, patient is now in atrial fibr illation. DOCTOR: Dwight Tang Interpretating Date/Time 10/12/2016 16:06:20
--- NOTE | 2016-10-12 16:07 | EKG ---
Date Performed: 10/11/2016 Time Performed: 16:38:58 PTAGE: 71 years EKG: Sinus rhythm WITH SHORT WA INTERVAL MARKED LEFT AXIS DEVIATION INCOMPLETE RIGHT BUNDLE BRANCH BLOCK ST DEVIATION AND MODERATE T-WAVE ABNORMALITY, CONSIDER ANTERIOR ISCHEMIA ABNORMAL ECG PREVIOUS TRACING : 10/06/2016 17.44 Compared to previous tracing, patient continues in sinus rh ythm. DOCTOR: Dwight Tang Interpretating Date/Time 10/12/2016 16:05:14
--- NOTE | 2016-10-12 16:07 | EKG ---
Date Performed: 10/12/2016 Time Performed: 00:56:15 PTAGE: 71 years EKG: Sinus rhythm INCOMPLETE RIGHT BUNDLE BRANCH BLOCK POSSIBLE INFERIOR MYOCARDIAL INFARCTION , PROBABLY OLD MODERATE T-WAVE ABNORMALITY, CONSIDER ANTEROLATERAL ISCHEMIA ABNORMAL ECG PREVIOUS TRACING : 10/11/2016 16.38 Compared to previous tracing, patient continues in sinus rh ythm. DOCTOR: Dwight Tang Interpretating Date/Time 10/12/2016 16:06:02
[2016-10-13] VITALS (49 sets, daily range): BP systolic 105–158; BP diastolic 55–93; PULSE 65–140; RESP 11–76; TEMP 97.3–99; O2SAT 88–100
[2016-10-13] MEDS: CHLORHEXIDINE GLUCONATE 2 % 1 PACK (2 CLOTHS)(taper/protocol) TOPICAL SCH ×2 (02:09→21:32)
[2016-10-13 04:16] LABS: AUTOMATED NEUTROPHIL # 6.4 TH/MM3 (1.8-7.7); BASOPHIL % 0.2 % (0.0-2.0); EOSINOPHIL # 0.2 TH/MM3 (0-0.4); EOSINOPHIL % 2.3 % (0.0-4.0); HEMATOCRIT 25.8 % (39.0-51.0); HEMO FLAGS DIFF FINAL; LYMPH % 9.4 % (9.0-44.0); LYMPHOCYTE # 0.7 TH/MM3 (1.0-4.8); MEAN CELL VOLUME 95.1 FL (80.0-100.0); MEAN CORPUSCULAR HGB CONC 32.6 % (32.0-36.0); MONO % 5.7 % (0.0-8.0); NEUT % 82.4 % (16.0-70.0); PLATELET COUNT 170 TH/MM3 (150-450); RED BLOOD COUNT 2.71 MIL/MM3 (4.50-5.90); RED CELL DISTRIBUTION WIDTH 14.7 % (11.6-17.2); WHITE BLOOD COUNT 7.7 TH/MM3 (4.0-11.0)
[2016-10-13 04:53] LABS: BICARBONATE 29.6 MEQ/L (21.0-32.0); POTASSIUM 4.2 MEQ/L (3.5-5.1)
[2016-10-13] MEDS: DILTIAZEM 125 MG/NS 100 ML IV SCH ×2 (05:14)
[2016-10-13] MEDS: INSULIN ASPART SUPPLEMENTAL SCALE SQ SCH ×2 (06:48→19:00)
--- NOTE | 2016-10-13 08:25 | PD.CARD.PN ---
Subjective Subjective Remarks denies chest pain (Clive Kay) Objective Vital Signs / I&O Vital Signs Date Time Temp Pulse Resp B/P Pulse Ox O2 Delivery O2 Flow Rate FiO2 10/13/16 08:00 80 10/13/16 07:44 94 Nasal Cannula 6.00 10/13/16 07:00 97 Non-Rebreather 15.00 10/13/16 06:00 72 10/13/16 04:00 98.3 69 22 125/65 98 10/13/16 04:00 69 10/13/16 02:00 66 10/13/16 00:00 65 10/13/16 00:00 98.1 69 22 125/64 98 10/12/16 22:00 70 10/12/16 21:45 98 Nasal Cannula 6.00 10/12/16 20:00 73 10/12/16 20:00 97.6 73 22 118/63 92 10/12/16 19:00 95 Nasal Cannula 6.00 10/12/16 18:00 69 10/12/16 17:30 71 22 117/63 93 10/12/16 17:15 68 36 112/63 94 10/12/16 17:00 67 36 111/59 94 10/12/16 16:45 68 20 112/62 94 10/12/16 16:30 71 18 110/59 92 10/12/16 16:15 75 25 121/64 91 10/12/16 16:00 75 10/12/16 16:00 98.0 75 23 120/61 90 10/12/16 15:45 82 27 116/62 92 10/12/16 15:30 75 25 118/64 98 10/12/16 15:15 80 37 116/60 99 10/12/16 15:00 72 21 118/62 100 10/12/16 14:53 76 20 127/59 99 10/12/16 13:00 75 40 99 10/12/16 12:45 85 31 136/67 98 10/12/16 12:30 83 26 130/69 100 10/12/16 12:15 80 26 124/70 100 10/12/16 12:00 87 10/12/16 12:00 97.8 87 23 123/66 95 10/12/16 11:45 88 29 130/66 99 10/12/16 11:30 83 26 129/66 100 10/12/16 11:15 88 23 136/74 99 10/12/16 11:00 81 28 127/70 100 10/12/16 10:45 92 36 141/75 92 10/12/16 10:31 135 38 161/69 89 10/12/16 10:24 98 Partial Rebreather 10/12/16 10:15 104 26 130/67 94 10/12/16 10:00 126 36 141/83 93 10/12/16 10:00 126 10/12/16 09:45 125 22 135/89 98 10/12/16 09:30 127 31 120/77 97 10/12/16 09:00 116 26 114/87 97 10/12/16 08:30 128 24 129/78 99 I/O 10/12/16 10/12/16 10/12/16 10/13/16 10/13/16 10/13/16 07:00 15:00 23:00 07:00 15:00 23:00 Intake Total 140 ml 113 ml 145 ml Output Total 3425 ml 200 ml 300 ml Balance -3285 ml -87 ml -155 ml Intake Oral 100 ml 100 ml 100 ml IV Total 40 ml 13 ml 45 ml Output Urine Total 425 ml 200 ml 300 ml Hemodialysis 3000 ml # Voids 0 # Bowel Movements 0 0 0 Physical Exam GENERAL: Well-nourished, well-developed patient in no apparent distress. NECK: No JVD. No carotid bruit. CARDIOVASCULAR: Regular rate and rhythm. S1/S2 no murmur, rub, or gallop. RESPIRATORY: No accessory muscle use. Clear to auscultation. Breath sounds equal bilaterally. GASTROINTESTINAL: Abdomen soft, non-tender, nondistended. MUSCULOSKELETAL: Extremities without clubbing, cyanosis, or edema. Laboratory Laboratory Tests Test 10/12/16 10/13/16 09:30 03:56 Sodium Level 137 MEQ/L 137 MEQ/L Potassium Level 3.7 MEQ/L 4.2 MEQ/L Chloride Level 98 MEQ/L 100 MEQ/L Carbon Dioxide Level 29.1 MEQ/L 29.6 MEQ/L Anion Gap 10 MEQ/L 7 MEQ/L Blood Urea Nitrogen 17 MG/DL 31 MG/DL Creatinine 2.65 MG/DL 3.48 MG/DL Estimat Glomerular Filtration 24 ML/MIN 17 ML/MIN Rate Random Glucose 138 MG/DL 152 MG/DL Calcium Level 8.1 MG/DL 8.1 MG/DL White Blood Count 7.7 TH/MM3 Red Blood Count 2.71 MIL/MM3 Hemoglobin 8.4 GM/DL Hematocrit 25.8 % Mean Corpuscular Volume 95.1 FL Mean Corpuscular Hemoglobin 31.0 PG Mean Corpuscular Hemoglobin 32.6 % Concent Red Cell Distribution Width 14.7 % Platelet Count 170 TH/MM3 Mean Platelet Volume 7.4 FL Neutrophils (%) (Auto) 82.4 % Lymphocytes (%) (Auto) 9.4 % Monocytes (%) (Auto) 5.7 % Eosinophils (%) (Auto) 2.3 % Basophils (%) (Auto) 0.2 % Neutrophils # (Auto) 6.4 TH/MM3 Lymphocytes # (Auto) 0.7 TH/MM3 Monocytes # (Auto) 0.4 TH/MM3 Eosinophils # (Auto) 0.2 TH/MM3 Basophils # (Auto) 0.0 TH/MM3 CBC Comment DIFF FINAL Differential Comment Magnesium Level 2.0 MG/DL (Clive Kay) Assessment and Plan Problem List: (1) CAD (coronary artery disease) (2) HTN (hypertension), benign Assessment and Plan CAD - there is not any good bypass targets, therefore we will plan PCI probably HTN - well controlled (Clive Kay) Assessment and Plan NPO p MN high risk surgical candidate discussed with family. med tx vs PCI. plan for PCI tomorrow afternoon. coordinate dialysis. (Martin Ortiz MD) Clive Kay Oct 13, 2016 08:25 Martin Ortiz MD Oct 13, 2016 13:29
[2016-10-13] MEDS: TAMSULOSIN HCL 0.4 MG CAP PO SCH (08:46)
[2016-10-13] MEDS: CALCITRIOL 0.25 MCG CAP PO SCH (08:46)
[2016-10-13] MEDS: amLODIPine BESYLATE 5 MG TAB PO SCH (08:46)
[2016-10-13] MEDS: FAMOTIDINE 20 MG TAB PO SCH ×2 (08:47→21:33)
[2016-10-13] MEDS: VITAMIN B CMPLX/VITC/FOLIC AC CAP PO SCH (08:47)
[2016-10-13] MEDS: METOPROLOL TARTRATE 100 MG TAB PO SCH ×2 (08:48→21:33)
--- NOTE | 2016-10-13 09:26 | HHI.PR ---
Subjective Remarks Pt had LHC on 10/12 with severe zuni three-vessel coronary artery disease. He is no longer having chest pain Pt is still on NR mask due to low O2 saturations No cough or congestion Pt complains of some dysphagia wince he has been on the NR mask. Pt very anxious and frustrated Objective Vitals Vital Signs Date Time Temp Pulse Resp B/P Pulse Ox O2 Delivery O2 Flow Rate FiO2 10/13/16 09:15 72 20 122/61 99 10/13/16 09:00 81 23 132/68 89 10/13/16 08:45 80 27 134/61 10/13/16 08:31 78 17 115/69 10/13/16 08:15 75 21 125/62 10/13/16 08:00 97.3 80 27 118/59 89 10/13/16 08:00 80 10/13/16 07:45 78 17 121/63 93 10/13/16 07:44 94 Nasal Cannula 6.00 10/13/16 07:30 83 33 128/60 98 10/13/16 07:15 74 28 126/61 99 10/13/16 07:00 97 Non-Rebreather 15.00 10/13/16 07:00 81 28 129/61 95 10/13/16 06:00 72 10/13/16 04:00 98.3 69 22 125/65 98 10/13/16 04:00 69 10/13/16 02:00 66 10/13/16 00:00 65 10/13/16 00:00 98.1 69 22 125/64 98 10/12/16 22:00 70 10/12/16 21:45 98 Nasal Cannula 6.00 10/12/16 20:00 73 10/12/16 20:00 97.6 73 22 118/63 92 10/12/16 19:00 95 Nasal Cannula 6.00 10/12/16 18:00 69 10/12/16 17:30 71 22 117/63 93 10/12/16 17:15 68 36 112/63 94 10/12/16 17:00 67 36 111/59 94 10/12/16 16:45 68 20 112/62 94 10/12/16 16:30 71 18 110/59 92 10/12/16 16:15 75 25 121/64 91 10/12/16 16:00 75 10/12/16 16:00 98.0 75 23 120/61 90 10/12/16 15:45 82 27 116/62 92 10/12/16 15:30 75 25 118/64 98 10/12/16 15:15 80 37 116/60 99 10/12/16 15:00 72 21 118/62 100 10/12/16 14:53 76 20 127/59 99 10/12/16 13:00 75 40 99 10/12/16 12:45 85 31 136/67 98 10/12/16 12:30 83 26 130/69 100 10/12/16 12:15 80 26 124/70 100 10/12/16 12:00 87 10/12/16 12:00 97.8 87 23 123/66 95 10/12/16 11:45 88 29 130/66 99 10/12/16 11:30 83 26 129/66 100 10/12/16 11:15 88 23 136/74 99 10/12/16 11:00 81 28 127/70 100 10/12/16 10:45 92 36 141/75 92 10/12/16 10:31 135 38 161/69 89 10/12/16 10:24 98 Partial Rebreather 10/12/16 10:15 104 26 130/67 94 10/12/16 10:00 126 36 141/83 93 10/12/16 10:00 126 10/12/16 09:45 125 22 135/89 98 10/12/16 09:30 127 31 120/77 97 10/12/16 10/12/16 10/13/16 15:00 23:00 07:00 Intake Total 140 ml 113 ml 145 ml Output Total 3425 ml 200 ml 300 ml Balance -3285 ml -87 ml -155 ml Intake Oral 100 ml 100 ml 100 ml IV Total 40 ml 13 ml 45 ml Output Urine Total 425 ml 200 ml 300 ml Hemodialysis 3000 ml # Bowel Movements 0 0 Result Diagram: 10/13/16 0356 10/13/16 0356 Other Results Laboratory Tests Test 10/12/16 10/12/16 10/12/16 10/12/16 00:25 01:17 02:25 09:30 Blood Gas Puncture Site LT RADIAL Blood Gas Patient Temperature 98.6 Blood Gas HCO3 23 mmol/L Blood Gas Base Excess -1.9 mmol/L Blood Gas Oxygen Saturation 94 % Arterial Blood pH 7.36 Arterial Blood Partial 41 mmHg Pressure CO2 Arterial Blood Partial 88 mmHG Pressure O2 Arterial Blood Oxygen Content 12.2 Vol % Arterial Blood 1.7 % Carboxyhemoglobin Arterial Blood Methemoglobin 0.6 % Blood Gas Hemoglobin 9.2 G/DL Oxygen Delivery Device NRB Blood Gas Liter Flow 15 L/M White Blood Count 7.5 TH/MM3 Red Blood Count 2.73 MIL/MM3 Hemoglobin 8.6 GM/DL Hematocrit 26.0 % Mean Corpuscular Volume 95.2 FL Mean Corpuscular Hemoglobin 31.5 PG Mean Corpuscular Hemoglobin 33.1 % Concent Red Cell Distribution Width 14.5 % Platelet Count 155 TH/MM3 Mean Platelet Volume 7.4 FL Neutrophils (%) (Auto) 86.3 % Lymphocytes (%) (Auto) 5.8 % Monocytes (%) (Auto) 7.7 % Eosinophils (%) (Auto) 0.1 % Basophils (%) (Auto) 0.1 % Neutrophils # (Auto) 6.5 TH/MM3 Lymphocytes # (Auto) 0.4 TH/MM3 Monocytes # (Auto) 0.6 TH/MM3 Eosinophils # (Auto) 0.0 TH/MM3 Basophils # (Auto) 0.0 TH/MM3 CBC Comment DIFF FINAL Differential Comment Sodium Level 139 MEQ/L 137 MEQ/L Potassium Level 5.0 MEQ/L 3.7 MEQ/L Chloride Level 103 MEQ/L 98 MEQ/L Carbon Dioxide Level 25.8 MEQ/L 29.1 MEQ/L Anion Gap 10 MEQ/L 10 MEQ/L Blood Urea Nitrogen 37 MG/DL 17 MG/DL Creatinine 4.80 MG/DL 2.65 MG/DL Estimat Glomerular Filtration 12 ML/MIN 24 ML/MIN Rate Random Glucose 168 MG/DL 138 MG/DL Lactic Acid Level 1.2 mmol/L Calcium Level 8.0 MG/DL 8.1 MG/DL Total Bilirubin 0.5 MG/DL Aspartate Amino Transf 23 U/L (AST/SGOT) Alanine Aminotransferase 7 U/L (ALT/SGPT) Alkaline Phosphatase 75 U/L Troponin I 1.84 NG/ML Total Protein 6.9 GM/DL Albumin 2.5 GM/DL Nasal Screen MRSA (PCR) MRSA NOT DETECTED Test 10/13/16 03:56 White Blood Count 7.7 TH/MM3 Red Blood Count 2.71 MIL/MM3 Hemoglobin 8.4 GM/DL Hematocrit 25.8 % Mean Corpuscular Volume 95.1 FL Mean Corpuscular Hemoglobin 31.0 PG Mean Corpuscular Hemoglobin 32.6 % Concent Red Cell Distribution Width 14.7 % Platelet Count 170 TH/MM3 Mean Platelet Volume 7.4 FL Neutrophils (%) (Auto) 82.4 % Lymphocytes (%) (Auto) 9.4 % Monocytes (%) (Auto) 5.7 % Eosinophils (%) (Auto) 2.3 % Basophils (%) (Auto) 0.2 % Neutrophils # (Auto) 6.4 TH/MM3 Lymphocytes # (Auto) 0.7 TH/MM3 Monocytes # (Auto) 0.4 TH/MM3 Eosinophils # (Auto) 0.2 TH/MM3 Basophils # (Auto) 0.0 TH/MM3 CBC Comment DIFF FINAL Differential Comment Sodium Level 137 MEQ/L Potassium Level 4.2 MEQ/L Chloride Level 100 MEQ/L Carbon Dioxide Level 29.6 MEQ/L Anion Gap 7 MEQ/L Blood Urea Nitrogen 31 MG/DL Creatinine 3.48 MG/DL Estimat Glomerular Filtration 17 ML/MIN Rate Random Glucose 152 MG/DL Calcium Level 8.1 MG/DL Magnesium Level 2.0 MG/DL Imaging Last Impressions Abdomen X-Ray 10/12/16 0038 Signed Impressions: Service Date/Time: Wednesday, October 12, 2016 00:30 - CONCLUSION: No dilated loops of small or large bowel. Left lower lobe consolidation and blunting of the right costophrenic angle. Miles Acosta MD Chest X-Ray 10/12/16 0000 Signed Impressions: Service Date/Time: Wednesday, October 12, 2016 00:29 - CONCLUSION: Interval development of significant airspace opacities throughout the right lung and dense consolidation left lower lobe. Miles Acosta MD Upper Extremity Ultrasound 10/09/16 0000 Signed Impressions: Service Date/Time: Sunday, October 09, 2016 11:40 - CONCLUSION: Normal examination. Lamont Miranda MD Catheter Placement X-Ray 10/09/16 0000 Signed Impressions: Service Date/Time: Sunday, October 09, 2016 16:40 - CONCLUSION: Uncomplicated PermaCath placement as above. Lamont Miranda MD Abdomen/Pelvis CT 10/06/16 1425 Signed Impressions: Service Date/Time: Thursday, October 06, 2016 16:51 - CONCLUSION: 1. Questionable inflammatory or edematous changes around the right kidney. No hydronephrosis or obstructive uropathy. Tiny nonobstructing renal calcifications on the left. No acute findings in the remainder of the abdomen and pelvis. 2. Pars defect at the lumbosacral junction with grade 1 anterolisthesis. Prostatic enlargement. Nelson Schilling MD Last 72 hours Impressions Abdomen/Pelvis CT 10/06/16 1425 Signed Impressions: Service Date/Time: Thursday, October 06, 2016 16:51 - CONCLUSION: 1. Questionable inflammatory or edematous changes around the right kidney. No hydronephrosis or obstructive uropathy. Tiny nonobstructing renal calcifications on the left. No acute findings in the remainder of the abdomen and pelvis. 2. Pars defect at the lumbosacral junction with grade 1 anterolisthesis. Prostatic enlargement. Nelson Schilling MD Objective Remarks General: NAD, AAOx3 Chest: Decreased breath sounds and basilar crackles Cardiac: Regular Abd: +BS, soft ND/NT Seay cath in place with dark tea colored urine present Ext: No edema A/P Problem List: (1) Acute kidney injury superimposed on CKD Status: Acute Plan: - Pt with chronic kidney disease, stage 4 due to DM who presented to the ED with constipation and urinary retention. - He was found to have acute worsening of his renal function with Cr 5.44/BUN 36 , GFR 10 - Pt started on IVF hydration. - Pt had Seay catheter placed at admission for monitoring UOP. - His bun/cr and gfr failed to improve - PermCath placement 10/09 - HD initiated on 10/10 - Seay removed 10/10 - Nephrology discussed with the pt AV fistula placement as well. Vascular surgery was consulted and AVF had been planned for 10/12 but pt had some respiratory insufficiency the night before and was transferred to ICU. - CXR (10/12) --> Interval development of significant airspace opacities throughout the right lung and dense consolidation left lower lobe. - Pt developed A. fib RVR and had some previous complaints of chest pain and was evaluated by Cardiology and is underwent LHC on 10/12 which noted severe zuni three-vessel coronary artery disease. - CTS is consulted - AVF surgery has been postponed until he is stable from a cardiac standpoint. - He had emergent HD on 10/12, nurse has spoken with HD nurse to try to obtain HD schedule. - Urine culture with no growth - Seay cath replaced on 10/12 - Avoid nephrotoxic medications. - PRN BP control. - DVT prophylaxis with SCDs (2) NSTEMI (non-ST elevated myocardial infarction) Status: Acute Plan: - Pt had complained of some chest pain following PermCath placement - He was noted to have EKG changes, including RBBB and ST and T-wave changes, with an elevated troponin of 1.84, and with his previous complaints of chest pain it was felt that the patient did sustain a cardiovascular event. - He is currently chest pain free. - Cardiology following. - Pt underwent LHC (10/12/16) --> Severe zuni three-vessel coronary artery disease. Normal left-sided filling pressures. - CTS is consulted - Pt still on NR mask for low O2 sats (3) SOB (shortness of breath) Status: Acute Plan: - On 10/12 pt had some respiratory insufficiency and was transferred to ICU. - CXR (10/12) --> Interval development of significant airspace opacities throughout the right lung and dense consolidation left lower lobe. - Pt underwent emergent HD on Thursday 10/12 - Repeat CXR today - 2D echo is pending (4) Atrial fibrillation with RVR Status: Acute Plan: - Pt developed A. fib RVR overnight last night. - 2D echocardiogram is ordered. - Pt was started on Cardizem drip for rate control and converted to NSR - Wean Cardizem gtt to off - Pt is on Metoprolol 100mg po BID. (5) Diabetic nephropathy Status: Chronic Plan: - A1c was 6.5 in 04/2016. - Accu checks BID - NovoLog SSI (6) Anemia in chronic kidney disease (CKD) Status: Chronic Plan: - related to ckd. - per renal. (7) Hyperkalemia Status: Acute Plan: - Recurring issue a/w CKD. Avoiding KANNAN-I and ARB. - Improved with IVF - Monitor labs (8) HTN (hypertension), benign Status: Chronic Plan: - Quite volatile at times. - Cont. Metoprolol 100mg po BID. - Norvasc 5mg po daily added on 10/08 - Clonidine prn. - May need to schedule hydralazine. (9) CAD (coronary artery disease) Status: Chronic Plan: - See above. (10) Psoriatic arthritis Status: Chronic Plan: - Stable. Outpt care. He has not wanted aggressive intervention Assessment and Plan Patient examined. Assessment and plan formulated with Joan Park PA-C. I agree with the above. Problem Qualifiers (1) Diabetic nephropathy: (2) Anemia in chronic kidney disease (CKD): Joan Park Oct 13, 2016 09:26 Mahendra Puentes DO Oct 18, 2016 22:47
[2016-10-13] MEDS ORDERED: LORazepam 0.5 MG TAB PO PRN (10:30)
--- NOTE | 2016-10-13 12:56 | PD.CAR.PN ---
CVT Progress Note Subjective/Hospital Course: Patient seen and evaluated Full consult dictated For AV fistula left arm Wednesday Cathy Echevarria 10/12/16 Patient was initially scheduled today for an AV fistula of the left arm, however he developed the cardiac complications including rapid A. fib with RVR and respiratory insufficiency. AV fistula creation is completely elective procedure and therefore this should wait the patient is improved and stable for surgery 10/13/16 Patient initially scheduled for AV fistula however developed cardiac problems as noted above Catheterization shows severe coronary artery disease for which patient will need coronary artery bypass surgery At this point AV fistula is secondary issue and we will readdress this once the coronary situation is resolved Objective: Vital Signs Date Time Temp Pulse Resp B/P Pulse Ox O2 Delivery O2 Flow Rate FiO2 10/13/16 10:00 73 10/13/16 09:15 72 20 122/61 99 10/13/16 09:00 81 23 132/68 89 10/13/16 08:45 80 27 134/61 10/13/16 08:31 78 17 115/69 10/13/16 08:15 75 21 125/62 10/13/16 08:00 97.3 80 27 118/59 89 10/13/16 08:00 80 10/13/16 07:45 78 17 121/63 93 10/13/16 07:44 94 Nasal Cannula 6.00 10/13/16 07:30 83 33 128/60 98 10/13/16 07:15 74 28 126/61 99 10/13/16 07:00 97 Non-Rebreather 15.00 10/13/16 07:00 81 28 129/61 95 10/13/16 06:00 72 10/13/16 04:00 98.3 69 22 125/65 98 10/13/16 04:00 69 10/13/16 02:00 66 10/13/16 00:00 65 10/13/16 00:00 98.1 69 22 125/64 98 10/12/16 22:00 70 10/12/16 21:45 98 Nasal Cannula 6.00 10/12/16 20:00 73 10/12/16 20:00 97.6 73 22 118/63 92 10/12/16 19:00 95 Nasal Cannula 6.00 10/12/16 18:00 69 10/12/16 17:30 71 22 117/63 93 10/12/16 17:15 68 36 112/63 94 10/12/16 17:00 67 36 111/59 94 10/12/16 16:45 68 20 112/62 94 10/12/16 16:30 71 18 110/59 92 10/12/16 16:15 75 25 121/64 91 10/12/16 16:00 75 10/12/16 16:00 98.0 75 23 120/61 90 10/12/16 15:45 82 27 116/62 92 10/12/16 15:30 75 25 118/64 98 10/12/16 15:15 80 37 116/60 99 10/12/16 15:00 72 21 118/62 100 10/12/16 14:53 76 20 127/59 99 10/12/16 13:00 75 40 99 Labs: Laboratory Tests Test 10/13/16 03:56 White Blood Count 7.7 TH/MM3 (4.0-11.0) Red Blood Count 2.71 MIL/MM3 (4.50-5.90) Hemoglobin 8.4 GM/DL (13.0-17.0) Hematocrit 25.8 % (39.0-51.0) Mean Corpuscular Volume 95.1 FL (80.0-100.0) Mean Corpuscular Hemoglobin 31.0 PG (27.0-34.0) Mean Corpuscular Hemoglobin 32.6 % Concent (32.0-36.0) Red Cell Distribution Width 14.7 % (11.6-17.2) Platelet Count 170 TH/MM3 (150-450) Mean Platelet Volume 7.4 FL (7.0-11.0) Neutrophils (%) (Auto) 82.4 % (16.0-70.0) Lymphocytes (%) (Auto) 9.4 % (9.0-44.0) Monocytes (%) (Auto) 5.7 % (0.0-8.0) Eosinophils (%) (Auto) 2.3 % (0.0-4.0) Basophils (%) (Auto) 0.2 % (0.0-2.0) Neutrophils # (Auto) 6.4 TH/MM3 (1.8-7.7) Lymphocytes # (Auto) 0.7 TH/MM3 (1.0-4.8) Monocytes # (Auto) 0.4 TH/MM3 (0-0.9) Eosinophils # (Auto) 0.2 TH/MM3 (0-0.4) Basophils # (Auto) 0.0 TH/MM3 (0-0.2) CBC Comment DIFF FINAL Differential Comment Sodium Level 137 MEQ/L (136-145) Potassium Level 4.2 MEQ/L (3.5-5.1) Chloride Level 100 MEQ/L (98-107) Carbon Dioxide Level 29.6 MEQ/L (21.0-32.0) Anion Gap 7 MEQ/L (5-15) Blood Urea Nitrogen 31 MG/DL (7-18) Creatinine 3.48 MG/DL (0.60-1.30) Estimat Glomerular Filtration 17 ML/MIN (>89) Rate Random Glucose 152 MG/DL (74-106) Calcium Level 8.1 MG/DL (8.5-10.1) Magnesium Level 2.0 MG/DL (1.5-2.5) Result Diagram: 10/13/16 0356 10/13/16 0356 (1) CAD (coronary artery disease) (2) HTN (hypertension), benign Hernandez Ness MD Oct 13, 2016 12:56
--- NOTE | 2016-10-13 13:07 | RADRPT ---
EXAM DATE/TIME: 10/13/2016 10:52 [facility] COMPARISON: CHEST SINGLE AP, October 12, 2016, 0:29. INDICATIONS : Short of breath MEDICAL HISTORY : Renal failure, chronic. Diabetes mellitus type II. Hypertension. CT SURGICAL HISTORY : Inguinal hernia repair. ENCOUNTER: Subsequent ACUITY: 4 - 6 days PAIN SCORE: 0/10 LOCATION: Bilateral chest FINDINGS: There is slight interval improvement of the bilateral infiltrates with moderate residual right lung a nd left basilar infiltrates remaining. Small bilateral pleural effusions are stable. A right general internal medicine physician al jugular tunnel dialysis catheter has its tip in the right atrium. CONCLUSION: 1. Slight interval improvement of the diffuse bilateral infiltrates with moderate residual right lung and left basilar infiltrates remaining. 2. Small bilateral pleural effusions. Jaxson Briscoe MD on October 13, 2016 at 12:47 Board Certified Radiologist. This report was verified electronically.
--- NOTE | 2016-10-13 14:58 | PD.CONS ---
Consult Service Palliative Care Consult Requested By Dr. Puentes . Primary Care Physician Denton Jean MD, PhD Reason for Consultation a. To assist with evaluation and management of symptoms including: b. To assist medical decision maker(s) with: better understanding of current medical conditions; weighing benefits/burdens of medical treatment options; making medical treatment decisions. HPI History of Present Illness This 71-year-old patient presented to the ED 10/06/16, with complaints of constipation, abdominal pain 5 days, urinary retention 2 days. He reported some relief with Tylenol. Denied fever, chills, nausea, vomiting. Reports normally with 3-4 small BMs daily. Decreased appetite but able to eat some. Reported normal panendoscopy within the last few years. Hospital course: * EKG sinus rhythm with PVCs. LAD, ST wave abnormalities. Physical exam notes diffuse mild tenderness in the abdomen with some mild CVA tenderness. Otherwise exam unremarkable. CBC unremarkable. BUN 36/creatinine 5.44 which is significantly increased over his baseline. UA noted with occasional blood, moderate leukocyte Estrace, WBCs. Started on IV fluids, Rocephin. CT abdomen- questionable inflammatory or edematous changes around right kidney, no hydronephrosis or obstructive uropathy. Tiny nonobstructing renal calcifications. No other acute findings. Nephrology consult pending for acute kidney injury. Admitted for further evaluation and management. * Nephrology: Patient with chronic kidney disease, likely secondary to diabetic disease now with acute injury, possible hypertensive renovascular disease as well. Continue hydration, sodium bicarbonate following urine output and BUN and creatinine. Possibility of dialysis discussed with if renal function not improving * Renal functions initially improved however again worsening 10/08-->> BUN 40/ creatinine 5.18. Nephrology continues to follow, discussed with patient and family possibility of dialysis if remains elevated. Patient has agreed to proceed with permacath placement. Hemodialysis catheter placement 10/09 interventional radiology; planned for AV fistula with general surgery * 10/10hemodialysis started. BUN 43/creatinine 5.24 * 10/12 [facility] alert called for sudden onset acute lower abd pain, increased fio2 requirements to NRB mask. Noted to have crackles, EKG was sinus tachycardia possible right bundle branch block, A. fib RVR.CXR= Infiltrate and possible pulmonary edema right, left lower lobe infiltrate. KUB negative. Patient a and O 3. Transfer to ICU. Troponins also elevated 1.84. Cardiology is consulted. * Cardiology: Notes non-ST elevation CO, history of CAD with prior CO. Based on current assessments/diagnostics likely patient sustained cardiovascular event ACS. + A. fib, RVR. Troponins more elevated than would be expected with renal insufficiency, patient probably will need left heart catheterization. Concern for contrast regarding kidney function however patient has been started on dialysis. 2-D echo pending. Cardizem for rate control. AV fistula surgery postponed. * Cardiac catheterization 10/12: Severe hamilton three-vessel coronary artery disease identified, normal left-sided filling pressure. Given the severity and extent will consult CV surgery for consideration of surgical revascularization though still not clear if patient will have good targets for this. If not a surgical candidate then will need to determine if percutaneous intervention versus medical management is best approach. * 10/13/16 CVS consult pending. Palliative care consulted to assist with clarification of goals of treatment. Past Family Social History Coded Allergies: No Known Allergies (Unverified , 10/06/16) Past Medical History Anemia CTD CKD stage IV bordering stage V Diabetic nephropathy Dyslipidemia Hypertension Hyperkalemia Neuropathy CO Osteoporosis History psoriatic arthropathy Secondary hyperparathyroidism of CKD Vitamin D deficiency . 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 Reported Medications Zantac (Ranitidine HCl) 150 Mg Tab 150 Mg PO BID Glimepiride 2 Mg Tab 2 Mg PO BID Metoprolol Tartrate 100 Mg Tab 100 Mg PO BID . Current Medications Medications (Trade) Dose Ordered Sig/Eileen Route Start Time Stop Time Status Last Admin (Flomax) 0.4 mg DAILY PO 10/06/16 20:00 10/13/16 08:46 (Catapres) 0.1 mg Q6H PRN PO 10/06/16 19:00 10/09/16 18:48 (Restoril) 15 mg HS PRN PO 10/06/16 19:00 10/11/16 23:42 (D50w (Vial) Inj) 50 ml UNSCH PRN IV PUSH 10/06/16 19:15 (Glucagon Inj) 1 mg UNSCH PRN OTHER 10/06/16 19:15 (Lopressor) 100 mg BID PO 10/06/16 21:00 10/13/16 08:48 (Tylenol) 650 mg Q4H PRN PO 10/06/16 19:45 10/12/16 15:35 (Zofran Inj) 4 mg Q6HR PRN IV PUSH 10/06/16 19:45 10/10/16 04:51 (Pepcid) 10 mg BID PO 10/07/16 21:00 10/13/16 08:47 (NovoLOG SUPPLEMENTAL SCALE) 1 BID@07,19 SQ 10/08/16 19:00 10/13/16 06:48 (Norvasc) 5 mg DAILY PO 10/08/16 17:15 10/13/16 08:46 Calcitriol 0.25 mcg 0.25 mcg DAILY PO 10/10/16 09:00 10/13/16 08:46 (NS 1000 ml Inj) 1,000 ml @ 0 mls/hr Q0M PRN IV 10/09/16 10:10 10/12/16 05:41 Heparin Sodium (Porcine) 8000 units 8,000 units UNSCH PRN IVF 10/09/16 10:15 Sodium Chloride 1,000 ml @ 200 mls/hr Q5H PRN IV 10/09/16 10:10 (NS 1000 ml Inj) 1,000 ml @ 0 mls/hr Q0M PRN IV 10/09/16 10:10 (Mannitol Inj) 12.5 gm UNSCH PRN IV 10/09/16 10:15 (Albumin 25% Inj) 25 gm UNSCH PRN IV 10/09/16 10:15 (NS Flush) 5 ml UNSCH PRN IV FLUSH 10/09/16 10:15 10/09/16 20:31 (Heparin Inj) UNSCH PRN .XX 10/09/16 10:15 10/12/16 05:41 (Gentamicin (Dialysis) Inj) 20 mg UNSCH PRN IV 10/09/16 10:15 10/12/16 05:41 (Zofran Inj) 4 mg UNSCH PRN IV 10/09/16 10:15 (Tylenol) 650 mg UNSCH PRN PO 10/09/16 10:15 (Benadryl) 25 mg UNSCH PRN PO 10/09/16 10:15 (Nitrostat Sl) 0.4 mg UNSCH PRN SL 10/09/16 10:15 10/11/16 20:31 (Catapres) 0.1 mg UNSCH PRN PO 10/09/16 10:15 (Epogen Inj) 10,000 units UNSCH PRN IV 10/09/16 10:15 10/12/16 05:41 (Gelfoam 12 Mm/7 Mm Top) 1 foam UNSCH PRN TOP 10/09/16 10:15 (Nephrocaps) 1 cap DAILY PO 10/10/16 09:00 10/13/16 08:47 (NS Flush) UNSCH PRN IVF 10/09/16 18:30 (Heparin Inj) UNSCH PRN IV FLUSH 10/09/16 18:30 (Lactulose Liq) 30 ml BID PRN PO 10/11/16 21:00 (Mag-Al Plus Susp Liq) 30 ml Q6H PRN PO 10/11/16 14:30 Miscellaneous Information Patient in critical care unit? Ass... Q361D .XX 10/12/16 04:00 (Chlorhexidine 2% Cloth) 3 pack DAILY@04 TOPICAL 10/12/16 04:00 10/16/16 04:01 10/13/16 02:09 Chlorhexidine Gluconate 3 pack 3 pack UNSCH PRN TOPICAL 10/12/16 04:00 10/17/16 03:49 (Cardizem Inj/NS Inj) 125 ml @ 0 mls/hr TITRATE IV 10/12/16 09:00 10/13/16 05:14 (Ativan) 0.5 mg Q8H PRN PO 10/13/16 10:30 Family History Paternal uncle required hemodialysis, father with some renal disease not requiring dialysis . Substance Use Tobacco: Former smoker, quit 1970. Alcohol: Occasional alcohol Prescription med abuse: None Illicits: None . Psychosocial History . 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 Physical Exam Vital Signs Date Time Temp Pulse Resp B/P Pulse Ox O2 Delivery O2 Flow Rate FiO2 10/13/16 13:00 69 21 105/65 94 10/13/16 12:45 73 30 113/58 90 10/13/16 12:31 78 25 133/62 91 10/13/16 12:15 85 11 112/66 88 10/13/16 12:00 98.7 73 25 112/60 94 10/13/16 12:00 73 10/13/16 11:45 77 32 111/60 93 10/13/16 11:30 72 18 121/62 94 10/13/16 11:15 76 20 123/70 92 10/13/16 11:01 73 23 128/58 94 10/13/16 11:00 73 31 94 10/13/16 10:45 74 28 158/93 97 10/13/16 10:33 74 34 126/90 93 10/13/16 10:15 71 28 114/55 10/13/16 10:00 73 10/13/16 10:00 73 76 117/56 10/13/16 09:15 72 20 122/61 99 10/13/16 09:00 81 23 132/68 89 10/13/16 08:45 80 27 134/61 10/13/16 08:31 78 17 115/69 10/13/16 08:15 75 21 125/62 10/13/16 08:00 97.3 80 27 118/59 89 10/13/16 08:00 80 10/13/16 07:45 78 17 121/63 93 10/13/16 07:44 94 Nasal Cannula 6.00 10/13/16 07:30 83 33 128/60 98 10/13/16 07:15 74 28 126/61 99 10/13/16 07:00 97 Non-Rebreather 15.00 10/13/16 07:00 81 28 129/61 95 10/13/16 06:00 72 10/13/16 04:00 98.3 69 22 125/65 98 10/13/16 04:00 69 10/13/16 02:00 66 10/13/16 00:00 65 10/13/16 00:00 98.1 69 22 125/64 98 10/12/16 22:00 70 10/12/16 21:45 98 Nasal Cannula 6.00 10/12/16 20:00 73 10/12/16 20:00 97.6 73 22 118/63 92 10/12/16 19:00 95 Nasal Cannula 6.00 10/12/16 18:00 69 10/12/16 17:30 71 22 117/63 93 10/12/16 17:15 68 36 112/63 94 10/12/16 17:00 67 36 111/59 94 10/12/16 16:45 68 20 112/62 94 10/12/16 16:30 71 18 110/59 92 10/12/16 16:15 75 25 121/64 91 10/12/16 16:00 75 10/12/16 16:00 98.0 75 23 120/61 90 10/12/16 15:45 82 27 116/62 92 10/12/16 15:30 75 25 118/64 98 10/12/16 15:15 80 37 116/60 99 10/12/16 15:00 72 21 118/62 100 10/12/16 14:53 76 20 127/59 99 10/12/16 10/13/16 19:00 07:00 Intake Total 140 ml 258 ml Output Total 3425 ml 500 ml Balance -3285 ml -242 ml Intake Oral 100 ml 200 ml IV Total 40 ml 58 ml Output Urine Total 425 ml 500 ml Hemodialysis 3000 ml # Bowel Movements 0 Exam Draft/pending/templateCONSTITUTIONAL/GENERAL: This is an adequately nourished patient, in no apparent distress. TUBES/LINES/DRAINS: SKIN: No jaundice, rashes, or lesions. Ecchymoses on upper extremities. No wounds seen anteriorly. Skin temperature appropriate. Not diaphoretic. HEAD: Atraumatic. Normocephalic. EYES: Pupils equal and round and reactive. Extraocular motions intact. No scleral icterus. No injection or drainage. Fundi not examined. ENT: Hearing grossly normal. Nose without bleeding or purulent drainage. Throat without visible erythema, exudates, masses, or lesions. NECK: Trachea midline. Supple, nontender. No palpable thyroid enlargement or nodularity. CARDIOVASCULAR: Regular rate and rhythm without murmurs, gallops, or rubs. No JVD. Peripheral pulses symmetric. RESPIRATORY/CHEST: Symmetric, unlabored respirations. Clear to auscultation. Breath sounds equal bilaterally. No wheezes, rales, or rhonchi. GASTROINTESTINAL: Abdomen soft, non-tender, nondistended. No hepato-splenomegaly , or palpable masses. No guarding. Bowel sounds present. GENITOURINARY: Without palpable bladder distension. Seay catheter in place. MUSCULOSKELETAL: Extremities without clubbing, cyanosis, or edema. No joint tenderness or effusion noted. No calf tenderness. No mottling or clubbing. LYMPHATICS: No palpable cervical or supraclavicular adenopathy. NEUROLOGICAL: Awake and alert. Motor and sensory grossly within normal limits. Follows commands. Cognitively sharp. Moves all extremities. PSYCHIATRIC: No obvious anxiety/depression. no apparent hallucinations or other psychotic thought process. Diagnostic Tests Laboratory Laboratory Tests Test 10/12/16 10/12/16 10/12/16 10/12/16 00:25 01:17 02:25 09:30 Blood Gas Puncture Site LT RADIAL Blood Gas Patient Temperature 98.6 Blood Gas HCO3 23 mmol/L (22-26) Blood Gas Base Excess -1.9 mmol/L (-2-2) Blood Gas Oxygen Saturation 94 % (90-100) Arterial Blood pH 7.36 (7.380-7.420) Arterial Blood Partial 41 mmHg (38-42) Pressure CO2 Arterial Blood Partial 88 mmHG Pressure O2 (61-120) Arterial Blood Oxygen Content 12.2 Vol % (12.0-20.0) Arterial Blood 1.7 % (0-4) Carboxyhemoglobin Arterial Blood Methemoglobin 0.6 % (0-2) Blood Gas Hemoglobin 9.2 G/DL (12.0-16.0) Oxygen Delivery Device NRB Blood Gas Liter Flow 15 L/M White Blood Count 7.5 TH/MM3 (4.0-11.0) Red Blood Count 2.73 MIL/MM3 (4.50-5.90) Hemoglobin 8.6 GM/DL (13.0-17.0) Hematocrit 26.0 % (39.0-51.0) Mean Corpuscular Volume 95.2 FL (80.0-100.0) Mean Corpuscular Hemoglobin 31.5 PG (27.0-34.0) Mean Corpuscular Hemoglobin 33.1 % Concent (32.0-36.0) Red Cell Distribution Width 14.5 % (11.6-17.2) Platelet Count 155 TH/MM3 (150-450) Mean Platelet Volume 7.4 FL (7.0-11.0) Neutrophils (%) (Auto) 86.3 % (16.0-70.0) Lymphocytes (%) (Auto) 5.8 % (9.0-44.0) Monocytes (%) (Auto) 7.7 % (0.0-8.0) Eosinophils (%) (Auto) 0.1 % (0.0-4.0) Basophils (%) (Auto) 0.1 % (0.0-2.0) Neutrophils # (Auto) 6.5 TH/MM3 (1.8-7.7) Lymphocytes # (Auto) 0.4 TH/MM3 (1.0-4.8) Monocytes # (Auto) 0.6 TH/MM3 (0-0.9) Eosinophils # (Auto) 0.0 TH/MM3 (0-0.4) Basophils # (Auto) 0.0 TH/MM3 (0-0.2) CBC Comment DIFF FINAL Differential Comment Sodium Level 139 MEQ/L 137 MEQ/L (136-145) (136-145) Potassium Level 5.0 MEQ/L 3.7 MEQ/L (3.5-5.1) (3.5-5.1) Chloride Level 103 MEQ/L 98 MEQ/L (98-107) (98-107) Carbon Dioxide Level 25.8 MEQ/L 29.1 MEQ/L (21.0-32.0) (21.0-32.0) Anion Gap 10 MEQ/L (5-15) 10 MEQ/L (5-15) Blood Urea Nitrogen 37 MG/DL (7-18) 17 MG/DL (7-18) Creatinine 4.80 MG/DL 2.65 MG/DL (0.60-1.30) (0.60-1.30) Estimat Glomerular Filtration 12 ML/MIN (>89) 24 ML/MIN (>89) Rate Random Glucose 168 MG/DL 138 MG/DL (74-106) (74-106) Lactic Acid Level 1.2 mmol/L (0.4-2.0) Calcium Level 8.0 MG/DL 8.1 MG/DL (8.5-10.1) (8.5-10.1) Total Bilirubin 0.5 MG/DL (0.2-1.0) Aspartate Amino Transf 23 U/L (15-37) (AST/SGOT) Alanine Aminotransferase 7 U/L (12-78) (ALT/SGPT) Alkaline Phosphatase 75 U/L (45-117) Troponin I 1.84 NG/ML (0.02-0.05) Total Protein 6.9 GM/DL (6.4-8.2) Albumin 2.5 GM/DL (3.4-5.0) Nasal Screen MRSA (PCR) MRSA NOT DETECTED (NOT DETECT) Test 10/13/16 03:56 White Blood Count 7.7 TH/MM3 (4.0-11.0) Red Blood Count 2.71 MIL/MM3 (4.50-5.90) Hemoglobin 8.4 GM/DL (13.0-17.0) Hematocrit 25.8 % (39.0-51.0) Mean Corpuscular Volume 95.1 FL (80.0-100.0) Mean Corpuscular Hemoglobin 31.0 PG (27.0-34.0) Mean Corpuscular Hemoglobin 32.6 % Concent (32.0-36.0) Red Cell Distribution Width 14.7 % (11.6-17.2) Platelet Count 170 TH/MM3 (150-450) Mean Platelet Volume 7.4 FL (7.0-11.0) Neutrophils (%) (Auto) 82.4 % (16.0-70.0) Lymphocytes (%) (Auto) 9.4 % (9.0-44.0) Monocytes (%) (Auto) 5.7 % (0.0-8.0) Eosinophils (%) (Auto) 2.3 % (0.0-4.0) Basophils (%) (Auto) 0.2 % (0.0-2.0) Neutrophils # (Auto) 6.4 TH/MM3 (1.8-7.7) Lymphocytes # (Auto) 0.7 TH/MM3 (1.0-4.8) Monocytes # (Auto) 0.4 TH/MM3 (0-0.9) Eosinophils # (Auto) 0.2 TH/MM3 (0-0.4) Basophils # (Auto) 0.0 TH/MM3 (0-0.2) CBC Comment DIFF FINAL Differential Comment Sodium Level 137 MEQ/L (136-145) Potassium Level 4.2 MEQ/L (3.5-5.1) Chloride Level 100 MEQ/L (98-107) Carbon Dioxide Level 29.6 MEQ/L (21.0-32.0) Anion Gap 7 MEQ/L (5-15) Blood Urea Nitrogen 31 MG/DL (7-18) Creatinine 3.48 MG/DL (0.60-1.30) Estimat Glomerular Filtration 17 ML/MIN (>89) Rate Random Glucose 152 MG/DL (74-106) Calcium Level 8.1 MG/DL (8.5-10.1) Magnesium Level 2.0 MG/DL (1.5-2.5) Result Diagram: 10/13/16 0356 10/13/16 0356 Procedures 10/09 Hemodialysis catheter placement --interventional radiology Patient/Family Conference Issues Discussed: Draft/pending/template * Palliative care role, purpose, approach * Additional medical, psychosocial, and spiritual history * Patients general health, functional status, and cognitive changes in the months leading up to the current hospitalization * Patient/family understanding of the current medical problems * Patient/family understanding of prognosis * Patients goals of care as best understood from advance directives and/or conversations and/or values * Current medical treatment options and benefits/burdens of those options * Likely scenarios comparing ongoing aggressive care with a transition to comfort measures only * Questions answered to the best of my ability * Palliative care contact information provided Assessment and Plan Disease Oriented Problem List: (1) Psoriatic arthritis (2) Hyperkalemia (3) CAD (coronary artery disease) (4) Diabetic nephropathy (5) Anemia in chronic kidney disease (CKD) (6) HTN (hypertension), benign (7) Acute kidney injury superimposed on CKD (8) Diabetes mellitus (9) NSTEMI (non-ST elevated myocardial infarction) (10) Atrial fibrillation with RVR Symptom Scale: Pertinent Non-Medical Issues Psychosocial: Spiritual: Legal: Ethical issues impacting care: Important Contacts Valarie Ornelas - [phone] / [phone] Malka Green Sister- [phone] . Plan Draft/pending/template Legal decision maker: Goals: Plan to meet with patient , family tomorrow 10/14/16 CODE STATUS: SYMPTOMS: -- -- Palliative care will continue to follow during hospital course as condition evolves, to assist patient/decision-maker with understanding of medical conditions, weighing benefits/burdens of treatment options, for clarification of goals of treatment. Additionally will assist with any symptoms of palliative concern Thank you for the opportunity to participate in the care of Mr. Ornelas. Attestation To help prompt me to consider important information that might be impacting today's encounter and assessment, information from prior notes written by myself or my colleagues may have been "brought forward" into today's note. My signature on this note, however, is an attestation that I personally performed the exam, history, and/or decision-making noted today, and, unless otherwise indicated, the interactions with patient, family, and staff as well as the review of records all occurred today. I also attest that the listed assessment and stated plan reflect my best clinical judgment today based on the combination of historical information, prior notes, and today's exam/ interactions. When time spent is documented, it refers only to time spent today by the signer, or if indicated, combined time spent today by collaborating physician/nurse practitioner. Sultana Diaz Oct 13, 2016 14:58
--- NOTE | 2016-10-13 15:50 | ECHRPT ---
Indication: EVAL LV FUNCTION CONCLUSIONS Mildly dilated left ventricle. Mild concentric left ventricular hypertrophy. The left ventricular systolic function is severely reduced with an estimated ejection fraction in th e range of 30-35%. There is global left ventricular dysfunction with apical akinesis. There is global left ventricular dysfunction. Calcification of the anterior mitral valve leaflet. Trace mitral valve regurgitation. Aortic valve sclerosis is present. There is trace tricuspid valve regurgitation. Normal estimated pulmonary pressures. Trivial pulmonary valve regurgitation. BP: 165 / 98 HR: 92 Rhythm: Sinus MEASUREMENTS (Male / Female) Normal Values Technical Quality:Fair 2D ECHO LV Diastolic Diameter PLAX 4.7 cm 4.2 - 5.9 / 3.9 - 5.3 cm LV Systolic Diameter PLAX 4.0 cm IVS Diastolic Thickness 1.1 cm 0.6 - 1.0 / 0.6 - 0.9 cm LVPW Diastolic Thickness 0.9 cm 0.6 - 1.0 / 0.6 - 0.9 cm LV Relative Wall Thickness 0.4 LA Systolic Diameter LX 4.5 cm 3.0 - 4.0 / 2.7 - 3.8 cm LV Ejection Fraction MOD 4C 28.1 % LV Cardiac Index MOD 4C 1714.6 cm/minm LV Ejection Fraction 4C AL 28.2 % LV Cardiac Index 4C AL 1805.3 cm/minm M-MODE Aortic Root Diameter MM 3.1 cm LA Systolic Diameter MM 3.8 cm LA Ao Ratio MM 1.2 AV Cusp Separation MM 1.7 cm DOPPLER AV Peak Velocity 186.0 cm/s AV Peak Gradient 13.8 mmHg LVOT Peak Velocity 90.3 cm/s LVOT Peak Gradient 3.3 mmHg MV Area PHT 3.5 cm Mitral E Point Velocity 91.8 cm/s Mitral A Point Velocity 92.3 cm/s Mitral E to A Ratio 1.0 TV Peak Velocity 157.0 cm/s PV Peak Velocity 132.0 cm/s PV Peak Gradient 7.0 mmHg FINDINGS LEFT VENTRICLE Mildly dilated left ventricle. Mild concentric left ventricular hypertrophy. The left ventricular systolic function is severely reduced with an estimated ejection fraction in th e range of 30-35%. There is global left ventricular dysfunction with apical akinesis. RIGHT VENTRICLE Normal right ventricular size and systolic function. LEFT ATRIUM The left atrial size is normal. RIGHT ATRIUM The right atrial size is normal. ATRIAL SEPTUM Normal atrial septal thickness without atrial level shunting by limited color doppler interrogation. AORTA The aortic root and proximal ascending aorta are normal in size on limited imaging. MITRAL VALVE Calcification of the anterior mitral valve leaflet. Trace mitral valve regurgitation. AORTIC VALVE Aortic valve sclerosis is present. TRICUSPID VALVE There is trace tricuspid valve regurgitation. Normal estimated pulmonary pressures. PULMONARY VALVE Trivial pulmonary valve regurgitation. VESSELS The inferior vena cava is normal in size. PERICARDIUM No pericardial effusion. Martin Ortiz MD, FACC (Electronically Signed) Final Date:13 October 2016 15:49
--- NOTE | 2016-10-13 16:01 | MB ---
cc: MARION HAMILTON DATE OF : 1945 DATE OF CONSULTATION: 10/13/2016 REASON FOR CONSULTATION: 71-year-old male presented initially to the emergency room on 10/06/2016 with a five day history of constipation, two day history of some anuria, diffuse abdominal pain, improved with taking Tylenol, had an episode of vomiting two days ago, a small bowel movement two days prior, was also with decreased appetite. On admission the patient's BUN were elevated. The patient apparently states he had history of chronic kidney disease. Admission BUN of 36, creatinine 5.4. Nephrology was consulted and apparently he has known he has stage IV renal disease is procedures stage V. Previous history of bladder repair, ureteral stent with partial colectomy, reversal of colostomy. The patient was given some gentle hydration initially on admission, the patient had worsening renal indices and had a right IJ hemodialysis catheter placed on October 09. Patient was also evaluated by Dr. Ness for possible permanent AV fistula. Following the placement of the hemodialysis catheter. He developed some chest pain and EKG showed a right bundle branch block with some ST and T-wave abnormality also apparently developed some atrial fibrillation with RVR initial troponin was drawn of 1.84, had no prior troponins, but also again has a car acute on chronic kidney disease. The patient was ruled in for non-STEMI. The patient underwent cardiac cath on October 12 was found to have severe [place] three-vessel coronary disease. Left main disease of 30% proximal LAD 60%. The diagonal branch had a 90% stenosis. The left circ had 70%. The mid obtuse marginal branch showed 90% RCA 75%. We were consulted to evaluate for possible coronary artery bypass grafting. The patient also underwent echocardiogram which is apparently still pending. PAST MEDICAL HISTORY: 1. Anemia 2. Chronic kidney disease 3. Stage now probable stage V 4. Diabetes mellitus 5. Dyslipidemia 6. Hypertension 7. Neuropathy 8. Coronary artery disease 9. Prior myocardial infarction 10. Osteoporosis 11. Hyperparathyroidism. PAST SURGICAL HISTORY: Surgeries include inguinal hernia repair partial colectomy bladder repair ureteral stent secondary to Colovesical fistula 2011. ALLERGIES No known allergies MEDICATIONS Home meds include 1. Aspirin. 2. Calcium. 3. Glimepiride. 4. Metoprolol. 5. Zantac. 6. Tums. 7. Vitamin D. FAMILY HISTORY Noncontributory. SOCIAL HISTORY Prior tobacco. Smoked apparently for approximately 15 years, quit 1969. Occasional EtOH. 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 REVIEW OF SYSTEMS As above in the history of present illness, otherwise 12 systems unremarkable. PHYSICAL EXAMINATION: IN GENERAL: This is a 71-year-old male stated age, somewhat frail-appearing. HEAD, EYES, EARS, NOSE, AND THROAT: Head is normocephalic, atraumatic. SKIN: Skin is very dry. EYES: Pupils equal, reactive. No scleral icterus. No injection or drainage. NECK: Supple. No jugular venous distention. HEART: Heart sounds S1-S2 slightly irregular. No rubs, murmurs, gallops. LUNGS: Diminished in the bases, otherwise clear to auscultation. No wheezes, rales or rhonchi. ABDOMEN: Abdomen is soft, nontender. No masses or organomegaly. Positive for bowel sounds. EXTREMITIES: Reveal no cyanosis, clubbing. He has got a Seay catheter in place. NEUROLOGICALLY: The patient neurologically alert and oriented times three. No focal deficits. Moves all extremities very otherwise rather weak in appearance. LABORATORY FINDINGS: Lab work shows hemoglobin 8.4 hematocrit 25, white cell count 7.7, platelet count of 170, sodium 137, potassium 4.2, BUN 31 with a creatinine of 3.48, mag of 2.0, INR 1.0. Urinalysis showed some moderate leuko esterase. MRSA not detected. Hepatitis B and C negative. Micro showed no growth. Chest x-ray on the showed some improve bilateral diffuse infiltrates, small bilateral effusions. The patient at this time is currently pain free remains on a nasal cannula. The cardiac films have been evaluated by Dr. Marion Hamilton and apparently there are no good bypass targets. Dr. Hamilton did discuss this with Dr. Ortiz and will probably evaluate for high risk PCI probably . The patient is high-risk candidate the STS data will be documented in the electronic record at this time defer for medical therapy and high-risk PCI as per Dr. Ortiz. Marion Hamilton MD DICTATED BY: MEÑO Harrell/[place] /3:02 PM /3:33 PM
--- NOTE | 2016-10-13 18:18 | HHI.NPPN ---
Subjective History of Present Illness 70-year-old male with past medical history of chronic kidney disease, hypertension, ischemic heart disease, hyperlipidemia, chronic anemia was brought to the hospital because of severe constipation and decreased urine output. I was called to see the patient because of elevated BUN and creatinine. Additional Remarks This is late entry, note for 10/12/16. Patient is alert, transferred to [facility] after develop acute SOB, now with NRM. Review of Systems General Constitutional: Fatigue Cardiovascular Cardiac: MEZA Gastrointestinal Gastrointestinal: Constipation Objective Data Data 10/12/16 10/13/16 18:59 06:59 Intake Total 140 ml 258 ml Output Total 3425 ml 500 ml Balance -3285 ml -242 ml Intake Oral 100 ml 200 ml IV Total 40 ml 58 ml Output Urine Total 425 ml 500 ml Hemodialysis 3000 ml # Bowel Movements 0 Vital Signs Date Time Temp Pulse Resp B/P Pulse Ox O2 Delivery O2 Flow Rate FiO2 10/13/16 18:00 74 10/13/16 17:45 75 37 117/57 99 10/13/16 17:30 69 46 116/61 98 10/13/16 17:15 71 23 121/61 100 10/13/16 17:00 91 42 118/67 88 10/13/16 16:45 74 25 118/64 100 10/13/16 16:30 76 27 110/57 99 10/13/16 16:15 74 26 107/60 99 10/13/16 16:00 98.5 79 28 111/62 98 10/13/16 16:00 79 10/13/16 15:45 92 36 105/58 89 10/13/16 15:31 85 118/89 98 10/13/16 15:15 98 31 108/64 95 10/13/16 15:00 86 30 114/62 98 10/13/16 14:52 110 22 118/73 97 10/13/16 14:45 140 41 112/68 94 10/13/16 14:41 138 43 114/72 89 10/13/16 14:00 72 20 113/58 10/13/16 14:00 72 10/13/16 13:00 69 21 105/65 94 10/13/16 12:45 73 30 113/58 90 10/13/16 12:31 78 25 133/62 91 10/13/16 12:15 85 11 112/66 88 10/13/16 12:00 98.7 73 25 112/60 94 10/13/16 12:00 73 10/13/16 11:45 77 32 111/60 93 10/13/16 11:30 72 18 121/62 94 10/13/16 11:15 76 20 123/70 92 10/13/16 11:01 73 23 128/58 94 10/13/16 11:00 73 31 94 10/13/16 10:45 74 28 158/93 97 10/13/16 10:33 74 34 126/90 93 10/13/16 10:15 71 28 114/55 10/13/16 10:00 73 10/13/16 10:00 73 76 117/56 10/13/16 09:15 72 20 122/61 99 10/13/16 09:00 81 23 132/68 89 10/13/16 08:45 80 27 134/61 10/13/16 08:31 78 17 115/69 10/13/16 08:15 75 21 125/62 10/13/16 08:00 97.3 80 27 118/59 89 10/13/16 08:00 80 10/13/16 07:45 78 17 121/63 93 10/13/16 07:44 94 Nasal Cannula 6.00 10/13/16 07:30 83 33 128/60 98 10/13/16 07:15 74 28 126/61 99 10/13/16 07:00 97 Non-Rebreather 15.00 10/13/16 07:00 81 28 129/61 95 10/13/16 06:00 72 10/13/16 04:00 98.3 69 22 125/65 98 10/13/16 04:00 69 10/13/16 02:00 66 10/13/16 00:00 65 10/13/16 00:00 98.1 69 22 125/64 98 10/12/16 22:00 70 10/12/16 21:45 98 Nasal Cannula 6.00 10/12/16 20:00 73 10/12/16 20:00 97.6 73 22 118/63 92 10/12/16 19:00 95 Nasal Cannula 6.00 -: 10/13/16 0356 10/13/16 0356 Physical Exam General Appearance: Pale, Anxious, Malnourished Eyes Eye Exam: Pupils Equal Throat Throat Exam: Oral Mucosa [place] & Moist Neck Neck Exam: Neck Supple Pulmonary Resp Exam: Clear Bilaterally, Breath Sounds Equal, Rhonchi, Decreased Bases Cardiology CV Exam: Regular, Normal Sinus Rhythm Gastrointestinal/Abdomen GI Exam: Soft, Non-Tender, Bowel Sounds Present, Non-Distended Extremeties Extremities Exam: Trace Edema Neurologic Neuro Exam: Alert, Awake, Oriented Psychiatric Psych Exam: Appropriate Responses Assessment/Plan Assessment Summary: Anemia of CKD, Dehydration, Hypertension, CKD Stage IV Problem List: (1) CAD (coronary artery disease) (2) Diabetic nephropathy (3) HTN (hypertension), benign (4) Hyperkalemia (5) Diabetes mellitus (6) Anemia in chronic kidney disease (CKD) (7) Acute kidney injury superimposed on CKD Plan Patient has advance renal disease. Atrophic kidneys on CT scan. Non oliguric, BP is on higher side. On Metoprolol, started on Amlodipine. Creatinine is still elevated and GFR is 10-11 ml/min. Has advance end stage renal disease. Got PermCath and HD started. Vascular surgery consult appreciated. Patient develop severe SOB, and HD done in the night and early AM. 3 liters removed. Cariology has seen and had Cardiac Cath. results noted. Cardiac surgery to see the patient. Problem Qualifiers (1) Diabetic nephropathy: Qualified Code: E11.21 - Diabetic nephropathy associated with type 2 diabetes mellitus (2) Diabetes mellitus: (3) Anemia in chronic kidney disease (CKD): Qualified Code: N18.5 - Anemia in stage 5 chronic kidney disease, not on chronic dialysis Daphne Davidson MD Oct 13, 2016 18:18
--- NOTE | 2016-10-13 18:18 | HHI.NPPN ---
Subjective History of Present Illness 70-year-old male with past medical history of chronic kidney disease, hypertension, ischemic heart disease, hyperlipidemia, chronic anemia was brought to the hospital because of severe constipation and decreased urine output. I was called to see the patient because of elevated BUN and creatinine. Additional Remarks Patient is with NRM, has mild SOB. Review of Systems General Constitutional: Fatigue Cardiovascular Cardiac: MEZA Gastrointestinal Gastrointestinal: Constipation Objective Data Data 10/12/16 10/13/16 18:59 06:59 Intake Total 140 ml 258 ml Output Total 3425 ml 500 ml Balance -3285 ml -242 ml Intake Oral 100 ml 200 ml IV Total 40 ml 58 ml Output Urine Total 425 ml 500 ml Hemodialysis 3000 ml # Bowel Movements 0 Vital Signs Date Time Temp Pulse Resp B/P Pulse Ox O2 Delivery O2 Flow Rate FiO2 10/13/16 18:00 74 10/13/16 17:45 75 37 117/57 99 10/13/16 17:30 69 46 116/61 98 10/13/16 17:15 71 23 121/61 100 10/13/16 17:00 91 42 118/67 88 10/13/16 16:45 74 25 118/64 100 10/13/16 16:30 76 27 110/57 99 10/13/16 16:15 74 26 107/60 99 10/13/16 16:00 98.5 79 28 111/62 98 10/13/16 16:00 79 10/13/16 15:45 92 36 105/58 89 10/13/16 15:31 85 118/89 98 10/13/16 15:15 98 31 108/64 95 10/13/16 15:00 86 30 114/62 98 10/13/16 14:52 110 22 118/73 97 10/13/16 14:45 140 41 112/68 94 10/13/16 14:41 138 43 114/72 89 10/13/16 14:00 72 20 113/58 10/13/16 14:00 72 10/13/16 13:00 69 21 105/65 94 10/13/16 12:45 73 30 113/58 90 10/13/16 12:31 78 25 133/62 91 10/13/16 12:15 85 11 112/66 88 10/13/16 12:00 98.7 73 25 112/60 94 10/13/16 12:00 73 10/13/16 11:45 77 32 111/60 93 10/13/16 11:30 72 18 121/62 94 10/13/16 11:15 76 20 123/70 92 10/13/16 11:01 73 23 128/58 94 10/13/16 11:00 73 31 94 10/13/16 10:45 74 28 158/93 97 10/13/16 10:33 74 34 126/90 93 10/13/16 10:15 71 28 114/55 10/13/16 10:00 73 10/13/16 10:00 73 76 117/56 10/13/16 09:15 72 20 122/61 99 10/13/16 09:00 81 23 132/68 89 10/13/16 08:45 80 27 134/61 10/13/16 08:31 78 17 115/69 10/13/16 08:15 75 21 125/62 10/13/16 08:00 97.3 80 27 118/59 89 10/13/16 08:00 80 10/13/16 07:45 78 17 121/63 93 10/13/16 07:44 94 Nasal Cannula 6.00 10/13/16 07:30 83 33 128/60 98 10/13/16 07:15 74 28 126/61 99 10/13/16 07:00 97 Non-Rebreather 15.00 10/13/16 07:00 81 28 129/61 95 10/13/16 06:00 72 10/13/16 04:00 98.3 69 22 125/65 98 10/13/16 04:00 69 10/13/16 02:00 66 10/13/16 00:00 65 10/13/16 00:00 98.1 69 22 125/64 98 10/12/16 22:00 70 10/12/16 21:45 98 Nasal Cannula 6.00 10/12/16 20:00 73 10/12/16 20:00 97.6 73 22 118/63 92 10/12/16 19:00 95 Nasal Cannula 6.00 -: 10/13/16 0356 10/13/16 0356 Physical Exam General Appearance: Anxious, Malnourished Eyes Eye Exam: Pupils Equal Throat Throat Exam: Oral Mucosa [place] & Moist Neck Neck Exam: Neck Supple Pulmonary Resp Exam: Clear Bilaterally, Breath Sounds Equal, Rhonchi, Decreased Bases Cardiology CV Exam: Regular, Normal Sinus Rhythm Gastrointestinal/Abdomen GI Exam: Soft, Non-Tender, Bowel Sounds Present, Non-Distended Extremeties Extremities Exam: Trace Edema Neurologic Neuro Exam: Alert, Awake, Oriented Psychiatric Psych Exam: Appropriate Responses Assessment/Plan Assessment Summary: Anemia of CKD, Dehydration, Hypertension, CKD Stage IV Problem List: (1) CAD (coronary artery disease) (2) Diabetic nephropathy (3) HTN (hypertension), benign (4) Hyperkalemia (5) Diabetes mellitus (6) Anemia in chronic kidney disease (CKD) (7) Acute kidney injury superimposed on CKD Plan Patient has advance renal disease. Atrophic kidneys on CT scan. Non oliguric, BP is on higher side. On Metoprolol, started on Amlodipine. Creatinine is still elevated and GFR is 10-11 ml/min. Has advance end stage renal disease. Got PermCath and HD started. Vascular surgery consult appreciated. Seen by Cardiac surgery, to have Cardiac Cath. and possible stent tomorrow. HD is also due in AM. D/W the and sister at bed side. Problem Qualifiers (1) Diabetic nephropathy: Qualified Code: E11.21 - Diabetic nephropathy associated with type 2 diabetes mellitus (2) Diabetes mellitus: (3) Anemia in chronic kidney disease (CKD): Qualified Code: N18.5 - Anemia in stage 5 chronic kidney disease, not on chronic dialysis Daphne Davidson MD Oct 13, 2016 18:18
[2016-10-14] VITALS (15 sets, daily range): BP systolic 102–134; BP diastolic 55–62; PULSE 67–85; RESP 23–47; TEMP 96.5–99; O2SAT 95–98
[2016-10-14] MEDS: DILTIAZEM 125 MG/NS 100 ML IV SCH ×2 (00:28)
[2016-10-14] MEDS: INSULIN ASPART SUPPLEMENTAL SCALE SQ SCH ×2 (05:35→18:04)
--- NOTE | 2016-10-14 05:40 | RADRPT ---
EXAM DATE/TIME: 10/14/2016 04:38 [facility] COMPARISON: CHEST SINGLE AP, October 13, 2016, 10:52. INDICATIONS : Shortness of breath. MEDICAL HISTORY : Renal failure, chronic. Diabetes mellitus type II. Hypertension. [place] SURGICAL HISTORY : Inguinal hernia repair ENCOUNTER: Subsequent ACUITY: 4 - 6 days PAIN SCORE: Non-responsive. LOCATION: Bilateral chest FINDINGS: Double-lumen right central line stable in position. There is persistent bilateral lower lobe infiltr ates with lobar consolidation on the left and partially consolidative opacities lower right lung. Co existent hazy opacities suggest pleural effusions. There is a new opacity in the right upper lung cano ggesting a new non-consolidative infiltrate. CONCLUSION: Persistent bilateral lower lung consolidative infiltrates and a new area of non-consolidative infiltr ate in the right upper lobe. Miles Acosta MD on October 14, 2016 at 5:37 Board Certified Radiologist. This report was verified electronically.
[2016-10-14 05:43] LABS: AUTOMATED NEUTROPHIL # 5.1 TH/MM3 (1.8-7.7); BASOPHIL % 0.3 % (0.0-2.0); EOSINOPHIL # 0.2 TH/MM3 (0-0.4); EOSINOPHIL % 2.4 % (0.0-4.0); HEMATOCRIT 26.6 % (39.0-51.0); LYMPH % 12.2 % (9.0-44.0); LYMPHOCYTE # 0.8 TH/MM3 (1.0-4.8); MEAN CELL VOLUME 96.3 FL (80.0-100.0); MEAN CORPUSCULAR HEMOGLOBIN 31.5 PG (27.0-34.0); MEAN CORPUSCULAR HGB CONC 32.7 % (32.0-36.0); MONO % 7.2 % (0.0-8.0); NEUT % 77.9 % (16.0-70.0); PLATELET COUNT 167 TH/MM3 (150-450); RED BLOOD COUNT 2.76 MIL/MM3 (4.50-5.90); RED CELL DISTRIBUTION WIDTH 14.4 % (11.6-17.2); WHITE BLOOD COUNT 6.5 TH/MM3 (4.0-11.0)
[2016-10-14 05:53] LABS: HEMO FLAGS AUTO DIFF
[2016-10-14 06:03] LABS: BICARBONATE 27.5 MEQ/L (21.0-32.0); MAGNESIUM 2.3 MG/DL (1.5-2.5); POTASSIUM 3.9 MEQ/L (3.5-5.1)
--- NOTE | 2016-10-14 08:18 | PD.CARD.PN ---
Subjective Subjective Remarks denies chest pain (Clive Kay) Objective Vital Signs / I&O Vital Signs Date Time Temp Pulse Resp B/P Pulse Ox O2 Delivery O2 Flow Rate FiO2 10/14/16 07:18 98 Partial Rebreather 10/14/16 06:00 80 10/14/16 04:00 73 10/14/16 04:00 99.0 73 24 112/58 97 10/14/16 02:00 67 10/14/16 00:00 69 10/14/16 00:00 99.0 69 25 134/55 96 10/13/16 22:21 97 Partial Rebreather 12.00 10/13/16 22:00 74 10/13/16 20:00 99.0 79 26 109/58 99 10/13/16 20:00 79 10/13/16 19:00 94 Non-Rebreather 15.00 10/13/16 18:00 74 10/13/16 17:45 75 37 117/57 99 10/13/16 17:30 69 46 116/61 98 10/13/16 17:15 71 23 121/61 100 10/13/16 17:00 91 42 118/67 88 10/13/16 16:45 74 25 118/64 100 10/13/16 16:30 76 27 110/57 99 10/13/16 16:15 74 26 107/60 99 10/13/16 16:00 98.5 79 28 111/62 98 10/13/16 16:00 79 10/13/16 15:45 92 36 105/58 89 10/13/16 15:31 85 118/89 98 10/13/16 15:15 98 31 108/64 95 10/13/16 15:00 86 30 114/62 98 10/13/16 14:52 110 22 118/73 97 10/13/16 14:45 140 41 112/68 94 10/13/16 14:41 138 43 114/72 89 10/13/16 14:00 72 20 113/58 10/13/16 14:00 72 10/13/16 13:00 69 21 105/65 94 10/13/16 12:45 73 30 113/58 90 10/13/16 12:31 78 25 133/62 91 10/13/16 12:15 85 11 112/66 88 10/13/16 12:00 98.7 73 25 112/60 94 10/13/16 12:00 73 10/13/16 11:45 77 32 111/60 93 10/13/16 11:30 72 18 121/62 94 10/13/16 11:15 76 20 123/70 92 10/13/16 11:01 73 23 128/58 94 10/13/16 11:00 73 31 94 10/13/16 10:45 74 28 158/93 97 10/13/16 10:33 74 34 126/90 93 10/13/16 10:15 71 28 114/55 10/13/16 10:00 73 10/13/16 10:00 73 76 117/56 10/13/16 09:15 72 20 122/61 99 10/13/16 09:00 81 23 132/68 89 10/13/16 08:45 80 27 134/61 10/13/16 08:31 78 17 115/69 I/O 10/13/16 10/13/16 10/13/16 10/14/16 10/14/16 10/14/16 07:00 15:00 23:00 07:00 15:00 23:00 Intake Total 145 ml 163 ml 480 ml 40 ml Output Total 300 ml 300 ml 300 ml 250 ml Balance -155 ml -137 ml 180 ml -210 ml Intake Oral 100 ml 120 ml 450 ml 0 ml IV Total 45 ml 43 ml 30 ml 40 ml Output Urine Total 300 ml 300 ml 300 ml 250 ml # Bowel Movements 0 0 0 Physical Exam GENERAL: Well-nourished, well-developed patient in no apparent distress. NECK: No JVD. No carotid bruit. CARDIOVASCULAR: Regular rate and rhythm. S1/S2 no murmur, rub, or gallop. RESPIRATORY: No accessory muscle use. Clear to auscultation. Breath sounds equal bilaterally. GASTROINTESTINAL: Abdomen soft, non-tender, nondistended. MUSCULOSKELETAL: Extremities without clubbing, cyanosis, or edema. Laboratory Laboratory Tests Test 10/14/16 05:26 White Blood Count 6.5 TH/MM3 Red Blood Count 2.76 MIL/MM3 Hemoglobin 8.7 GM/DL Hematocrit 26.6 % Mean Corpuscular Volume 96.3 FL Mean Corpuscular Hemoglobin 31.5 PG Mean Corpuscular Hemoglobin 32.7 % Concent Red Cell Distribution Width 14.4 % Platelet Count 167 TH/MM3 Mean Platelet Volume 7.0 FL Neutrophils (%) (Auto) 77.9 % Lymphocytes (%) (Auto) 12.2 % Monocytes (%) (Auto) 7.2 % Eosinophils (%) (Auto) 2.4 % Basophils (%) (Auto) 0.3 % Neutrophils # (Auto) 5.1 TH/MM3 Lymphocytes # (Auto) 0.8 TH/MM3 Monocytes # (Auto) 0.5 TH/MM3 Eosinophils # (Auto) 0.2 TH/MM3 Basophils # (Auto) 0.0 TH/MM3 CBC Comment AUTO DIFF Sodium Level 139 MEQ/L Potassium Level 3.9 MEQ/L Chloride Level 101 MEQ/L Carbon Dioxide Level 27.5 MEQ/L Anion Gap 11 MEQ/L Blood Urea Nitrogen 40 MG/DL Creatinine 3.69 MG/DL Estimat Glomerular Filtration 16 ML/MIN Rate Random Glucose 151 MG/DL Calcium Level 8.6 MG/DL Magnesium Level 2.3 MG/DL (Clive Kay) Assessment and Plan Problem List: (1) CAD (coronary artery disease) (2) HTN (hypertension), benign Assessment and Plan CAD - there is not any good bypass targets, therefore we will plan PCI today with dialysis to follow HTN - well controlled (Clive Kay) Assessment and Plan discussed case with dr. lou significant SOB this am. not sure he will be able to lie flat dialysis today to remove 3 liters NPO p MN possible LHC tomorrow (Martin Ortiz MD) Clive Kay Oct 14, 2016 08:18 Martin Ortiz MD Oct 14, 2016 13:24
[2016-10-14] MEDS: VITAMIN B CMPLX/VITC/FOLIC AC CAP PO SCH (09:00)
[2016-10-14 09:21] LABS: SCAN/DIFF AUTO DIFF CONFIRMED
[2016-10-14] MEDS: CALCITRIOL 0.25 MCG CAP PO SCH (09:28)
[2016-10-14] MEDS: METOPROLOL TARTRATE 100 MG TAB PO SCH ×2 (09:29→19:30)
[2016-10-14] MEDS: amLODIPine BESYLATE 5 MG TAB PO SCH (09:29)
[2016-10-14] MEDS: TAMSULOSIN HCL 0.4 MG CAP PO SCH (09:29)
[2016-10-14] MEDS: FAMOTIDINE 20 MG TAB PO SCH ×2 (09:29→20:11)
--- NOTE | 2016-10-14 09:46 | PD.CONS ---
Consult Service Palliative Care Consult Requested By Dr Puentes Primary Care Physician Denton Jean MD, PhD Reason for Consultation a. To assist with evaluation and management of symptoms including: Anxiety, dyspnea, abdominal pain, constipation b. To assist medical decision maker(s) with: better understanding of current medical conditions; weighing benefits/burdens of medical treatment options; making medical treatment decisions. HPI History of Present Illness This 71-year-old patient presented to the ED 10/06/16, with complaints of constipation, abdominal pain 5 days, urinary retention 2 days. He reported some relief with Tylenol. Denied fever, chills, nausea, vomiting. Reports normally with 3-4 small BMs daily. Decreased appetite but able to eat some. Reported normal panendoscopy within the last few years. Hospital course: * EKG sinus rhythm with PVCs. LAD, ST wave abnormalities. Physical exam notes diffuse mild tenderness in the abdomen with some mild CVA tenderness. Otherwise exam unremarkable. CBC unremarkable. BUN 36/creatinine 5.44 which is significantly increased over his baseline. UA noted with occasional blood, moderate leukocyte Estrace, WBCs. Started on IV fluids, Rocephin. CT abdomen- questionable inflammatory or edematous changes around right kidney, no hydronephrosis or obstructive uropathy. Tiny nonobstructing renal calcifications. No other acute findings. Nephrology consult pending for acute kidney injury. Admitted for further evaluation and management. * Nephrology: Patient with chronic kidney disease, likely secondary to diabetic disease now with acute injury, possible hypertensive renovascular disease as well. Continue hydration, sodium bicarbonate following urine output and BUN and creatinine. Possibility of dialysis discussed with if renal function not improving * Renal functions initially improved however again worsening 10/08-->> BUN 40/ creatinine 5.18. Nephrology continues to follow, discussed with patient and family possibility of dialysis if remains elevated. Patient has agreed to proceed with permacath placement. Hemodialysis catheter placement 10/09 interventional radiology; planned for AV fistula with general surgery * 10/10hemodialysis started. BUN 43/creatinine 5.24 * 10/12 HALICAT alert called for sudden onset acute lower abd pain, increased fio2 requirements to NRB mask. Noted to have crackles, EKG was sinus tachycardia possible right bundle branch block, A. fib RVR.CXR= Infiltrate and possible pulmonary edema right, left lower lobe infiltrate. KUB negative. Patient a and O 3. Transfer to ICU. Troponins also elevated 1.84. Cardiology is consulted. * Cardiology: Notes non-ST elevation NM, history of CAD with prior NM. Based on current assessments/diagnostics likely patient sustained cardiovascular event ACS. + A. fib, RVR. Troponins more elevated than would be expected with renal insufficiency, patient probably will need left heart catheterization. Concern for contrast regarding kidney function however patient has been started on dialysis. 2-D echo pending. Cardizem for rate control. AV fistula surgery postponed. * Cardiac catheterization 10/12: Severe [place] three-vessel coronary artery disease identified, normal left-sided filling pressure. Given the severity and extent will consult CV surgery for consideration of surgical revascularization though still not clear if patient will have good targets for this. If not a surgical candidate then will need to determine if percutaneous intervention versus medical management is best approach. * 10/13/16 CVS consult pending. Palliative care consulted to assist with clarification of goals of treatment. Patient seen in room at bedside. Met with them at length. Patient is alert, pleasant, cooperative. Anxious at times. . Function/Cognitive Trajectory Patient lived at home with , independent with all ADLs. Fairly active physically. . Review of Systems Constitutional: COMPLAINS OF: Generalized weakness, DENIES: Fever, Weight gain , Change in appetite Ears, nose, mouth, throat: DENIES: Oral lesions, Throat pain Respiratory: COMPLAINS OF: Shortness of breath, DENIES: Cough, Sputum production Cardiovascular: COMPLAINS OF: Dyspnea on Exertion, DENIES: Chest pain, Lower Extremity Edema Gastrointestinal: COMPLAINS OF: Abdominal pain, Constipation, DENIES: Black stools, Diarrhea, Nausea, Vomiting, Difficulty Swallowing Musculoskeletal: DENIES: Joint pain Neurologic: DENIES: Headache Psychiatric: COMPLAINS OF: Anxiety Past Family Social History Coded Allergies: No Known Allergies (Unverified , 10/06/16) Past Medical History Anemia CTD CKD stage IV bordering stage V Diabetic nephropathy Dyslipidemia Hypertension Hyperkalemia Neuropathy NM Osteoporosis History psoriatic arthropathy Secondary hyperparathyroidism of CKD Vitamin D deficiency . 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 Reported Medications Zantac (Ranitidine HCl) 150 Mg Tab 150 Mg PO BID Glimepiride 2 Mg Tab 2 Mg PO BID Metoprolol Tartrate 100 Mg Tab 100 Mg PO BID . Current Medications Medications (Trade) Dose Ordered Sig/Eileen Route Start Time Stop Time Status Last Admin (Flomax) 0.4 mg DAILY PO 10/06/16 20:00 10/14/16 09:29 (Catapres) 0.1 mg Q6H PRN PO 10/06/16 19:00 10/09/16 18:48 (Restoril) 15 mg HS PRN PO 10/06/16 19:00 10/11/16 23:42 (D50w (Vial) Inj) 50 ml UNSCH PRN IV PUSH 10/06/16 19:15 (Glucagon Inj) 1 mg UNSCH PRN OTHER 10/06/16 19:15 (Lopressor) 100 mg BID PO 10/06/16 21:00 10/14/16 09:29 (Tylenol) 650 mg Q4H PRN PO 10/06/16 19:45 10/12/16 15:35 (Zofran Inj) 4 mg Q6HR PRN IV PUSH 10/06/16 19:45 10/10/16 04:51 (Pepcid) 10 mg BID PO 10/07/16 21:00 10/14/16 09:29 (NovoLOG SUPPLEMENTAL SCALE) 1 BID@07,19 SQ 10/08/16 19:00 10/14/16 05:35 (Norvasc) 5 mg DAILY PO 10/08/16 17:15 10/14/16 09:29 Calcitriol 0.25 mcg 0.25 mcg DAILY PO 10/10/16 09:00 10/14/16 09:28 (NS 1000 ml Inj) 1,000 ml @ 0 mls/hr Q0M PRN IV 10/09/16 10:10 10/12/16 05:41 Heparin Sodium (Porcine) 8000 units 8,000 units UNSCH PRN IVF 10/09/16 10:15 Sodium Chloride 1,000 ml @ 200 mls/hr Q5H PRN IV 10/09/16 10:10 (NS 1000 ml Inj) 1,000 ml @ 0 mls/hr Q0M PRN IV 10/09/16 10:10 (Mannitol Inj) 12.5 gm UNSCH PRN IV 10/09/16 10:15 (Albumin 25% Inj) 25 gm UNSCH PRN IV 10/09/16 10:15 (NS Flush) 5 ml UNSCH PRN IV FLUSH 10/09/16 10:15 10/09/16 20:31 (Heparin Inj) UNSCH PRN .XX 10/09/16 10:15 10/12/16 05:41 (Gentamicin (Dialysis) Inj) 20 mg UNSCH PRN IV 10/09/16 10:15 10/12/16 05:41 (Zofran Inj) 4 mg UNSCH PRN IV 10/09/16 10:15 (Tylenol) 650 mg UNSCH PRN PO 10/09/16 10:15 10/14/16 01:49 (Benadryl) 25 mg UNSCH PRN PO 10/09/16 10:15 (Nitrostat Sl) 0.4 mg UNSCH PRN SL 10/09/16 10:15 10/11/16 20:31 (Catapres) 0.1 mg UNSCH PRN PO 10/09/16 10:15 (Epogen Inj) 10,000 units UNSCH PRN IV 10/09/16 10:15 10/12/16 05:41 (Gelfoam 12 Mm/7 Mm Top) 1 foam UNSCH PRN TOP 10/09/16 10:15 (Nephrocaps) 1 cap DAILY PO 10/10/16 09:00 10/14/16 09:00 (NS Flush) UNSCH PRN IVF 10/09/16 18:30 (Heparin Inj) UNSCH PRN IV FLUSH 10/09/16 18:30 (Lactulose Liq) 30 ml BID PRN PO 10/11/16 21:00 (Mag-Al Plus Susp Liq) 30 ml Q6H PRN PO 10/11/16 14:30 Miscellaneous Information Patient in critical care unit? Ass... Q361D .XX 10/12/16 04:00 10/12/16 04:00 (Chlorhexidine 2% Cloth) 3 pack DAILY@04 TOPICAL 10/12/16 04:00 10/16/16 04:01 10/13/16 21:32 Chlorhexidine Gluconate 3 pack 3 pack UNSCH PRN TOPICAL 10/12/16 04:00 10/17/16 03:49 (Cardizem Inj/NS Inj) 125 ml @ 0 mls/hr TITRATE IV 10/12/16 09:00 10/14/16 00:28 (Ativan) 0.5 mg Q8H PRN PO 10/13/16 10:30 Family History Paternal uncle required hemodialysis, father with some renal disease not requiring dialysis . Substance Use Tobacco:Former smoker, quit 1969 Alcohol:Occasional alcohol Prescription med abuse:None Illicits:None . Psychosocial History . Retired . 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 He has 2 adult children, she has 3 adult children, they are supported by multiple grandchildren, many of whom are local. Born and raised in [facility]. . Spiritual/Cultural Factors [employer] known to them has been visiting frequently Living Will: Copy in medical record Health Care Surrogate: Copy in medical record Documented care wishes: Living will documents in the presence of terminal, end-stage conditions patient would not want artificial prolonging measures, quite detailed list including dialysis, CODE BLUE resuscitation, artificial nutrition etc. Ethical and Legal Issues Patient is currently able to make his own decisions. is designated healthcare surrogate, should he become incapacitated Physical Exam Vital Signs Date Time Temp Pulse Resp B/P Pulse Ox O2 Delivery O2 Flow Rate FiO2 10/14/16 07:18 98 Partial Rebreather 10/14/16 06:00 80 10/14/16 04:00 73 10/14/16 04:00 99.0 73 24 112/58 97 10/14/16 02:00 67 10/14/16 00:00 69 10/14/16 00:00 99.0 69 25 134/55 96 10/13/16 22:21 97 Partial Rebreather 12.00 10/13/16 22:00 74 10/13/16 20:00 99.0 79 26 109/58 99 10/13/16 20:00 79 10/13/16 19:00 94 Non-Rebreather 15.00 10/13/16 18:00 74 10/13/16 17:45 75 37 117/57 99 10/13/16 17:30 69 46 116/61 98 10/13/16 17:15 71 23 121/61 100 10/13/16 17:00 91 42 118/67 88 10/13/16 16:45 74 25 118/64 100 10/13/16 16:30 76 27 110/57 99 10/13/16 16:15 74 26 107/60 99 10/13/16 16:00 98.5 79 28 111/62 98 10/13/16 16:00 79 10/13/16 15:45 92 36 105/58 89 10/13/16 15:31 85 118/89 98 10/13/16 15:15 98 31 108/64 95 10/13/16 15:00 86 30 114/62 98 10/13/16 14:52 110 22 118/73 97 10/13/16 14:45 140 41 112/68 94 10/13/16 14:41 138 43 114/72 89 10/13/16 14:00 72 20 113/58 10/13/16 14:00 72 10/13/16 13:00 69 21 105/65 94 10/13/16 12:45 73 30 113/58 90 10/13/16 12:31 78 25 133/62 91 10/13/16 12:15 85 11 112/66 88 10/13/16 12:00 98.7 73 25 112/60 94 10/13/16 12:00 73 10/13/16 11:45 77 32 111/60 93 10/13/16 11:30 72 18 121/62 94 10/13/16 11:15 76 20 123/70 92 10/13/16 11:01 73 23 128/58 94 10/13/16 11:00 73 31 94 10/13/16 10:45 74 28 158/93 97 10/13/16 10:33 74 34 126/90 93 10/13/16 10:15 71 28 114/55 10/13/16 10:00 73 10/13/16 10:00 73 76 117/56 10/13/16 10/14/16 19:00 07:00 Intake Total 163 ml 520 ml Output Total 300 ml 550 ml Balance -137 ml -30 ml Intake Oral 120 ml 450 ml IV Total 43 ml 70 ml Output Urine Total 300 ml 550 ml # Bowel Movements 0 0 Exam CONSTITUTIONAL/GENERAL: This is a frail, elderly-appearing male. No apparent distress. TUBES/LINES/DRAINS: Peripheral IV left upper extremity, Seay catheter, SCDs, partial nonrebreather mask SKIN: No jaundice, rashes, or lesions. No wounds seen anteriorly. Skin temperature appropriate. Not diaphoretic. HEAD: Atraumatic. Normocephalic. EYES: Pupils equal and round and reactive. Extraocular motions intact. No scleral icterus. No injection or drainage. Fundi not examined. ENT: Slightly hard of hearing. Nose without bleeding or purulent drainage. Throat without visible erythema, exudates, masses, or lesions. NECK: Trachea midline. Supple, nontender. No palpable thyroid enlargement or nodularity. CARDIOVASCULAR: Regular rate and rhythm. No JVD. Peripheral pulses symmetric. RESPIRATORY/CHEST: Symmetric, unlabored respirations. Mildly tachypneic at time respiratory rate 2224. Clear to auscultation, diminished air movement to bases. Breath sounds equal bilaterally. GASTROINTESTINAL: Abdomen soft, non-tender, nondistended. No hepato-splenomegaly , or palpable masses. No guarding. Bowel sounds present. GENITOURINARY: Without palpable bladder distension. Seay catheter in place. MUSCULOSKELETAL: Extremities without clubbing, cyanosis, or edema. No joint tenderness or effusion noted. No mottling or clubbing.+ [place] nodes to bilateral hands LYMPHATICS: No palpable cervical or supraclavicular adenopathy. NEUROLOGICAL: Awake and alert. Oriented 3, appropriate. Insight fair. Follows commands. Cognitively sharp. Moves all 4 extremities. PSYCHIATRIC: mild anxiety at times Diagnostic Tests Laboratory Laboratory Tests Test 10/12/16 10/12/16 10/12/16 10/12/16 00:25 01:17 02:25 09:30 Blood Gas Puncture Site LT RADIAL Blood Gas Patient Temperature 98.6 Blood Gas HCO3 23 mmol/L (22-26) Blood Gas Base Excess -1.9 mmol/L (-2-2) Blood Gas Oxygen Saturation 94 % (90-100) Arterial Blood pH 7.36 (7.380-7.420) Arterial Blood Partial 41 mmHg (38-42) Pressure CO2 Arterial Blood Partial 88 mmHG Pressure O2 (61-120) Arterial Blood Oxygen Content 12.2 Vol % (12.0-20.0) Arterial Blood 1.7 % (0-4) Carboxyhemoglobin Arterial Blood Methemoglobin 0.6 % (0-2) Blood Gas Hemoglobin 9.2 G/DL (12.0-16.0) Oxygen Delivery Device NRB Blood Gas Liter Flow 15 L/M White Blood Count 7.5 TH/MM3 (4.0-11.0) Red Blood Count 2.73 MIL/MM3 (4.50-5.90) Hemoglobin 8.6 GM/DL (13.0-17.0) Hematocrit 26.0 % (39.0-51.0) Mean Corpuscular Volume 95.2 FL (80.0-100.0) Mean Corpuscular Hemoglobin 31.5 PG (27.0-34.0) Mean Corpuscular Hemoglobin 33.1 % Concent (32.0-36.0) Red Cell Distribution Width 14.5 % (11.6-17.2) Platelet Count 155 TH/MM3 (150-450) Mean Platelet Volume 7.4 FL (7.0-11.0) Neutrophils (%) (Auto) 86.3 % (16.0-70.0) Lymphocytes (%) (Auto) 5.8 % (9.0-44.0) Monocytes (%) (Auto) 7.7 % (0.0-8.0) Eosinophils (%) (Auto) 0.1 % (0.0-4.0) Basophils (%) (Auto) 0.1 % (0.0-2.0) Neutrophils # (Auto) 6.5 TH/MM3 (1.8-7.7) Lymphocytes # (Auto) 0.4 TH/MM3 (1.0-4.8) Monocytes # (Auto) 0.6 TH/MM3 (0-0.9) Eosinophils # (Auto) 0.0 TH/MM3 (0-0.4) Basophils # (Auto) 0.0 TH/MM3 (0-0.2) CBC Comment DIFF FINAL Differential Comment Sodium Level 139 MEQ/L 137 MEQ/L (136-145) (136-145) Potassium Level 5.0 MEQ/L 3.7 MEQ/L (3.5-5.1) (3.5-5.1) Chloride Level 103 MEQ/L 98 MEQ/L (98-107) (98-107) Carbon Dioxide Level 25.8 MEQ/L 29.1 MEQ/L (21.0-32.0) (21.0-32.0) Anion Gap 10 MEQ/L (5-15) 10 MEQ/L (5-15) Blood Urea Nitrogen 37 MG/DL (7-18) 17 MG/DL (7-18) Creatinine 4.80 MG/DL 2.65 MG/DL (0.60-1.30) (0.60-1.30) Estimat Glomerular Filtration 12 ML/MIN (>89) 24 ML/MIN (>89) Rate Random Glucose 168 MG/DL 138 MG/DL (74-106) (74-106) Lactic Acid Level 1.2 mmol/L (0.4-2.0) Calcium Level 8.0 MG/DL 8.1 MG/DL (8.5-10.1) (8.5-10.1) Total Bilirubin 0.5 MG/DL (0.2-1.0) Aspartate Amino Transf 23 U/L (15-37) (AST/SGOT) Alanine Aminotransferase 7 U/L (12-78) (ALT/SGPT) Alkaline Phosphatase 75 U/L (45-117) Troponin I 1.84 NG/ML (0.02-0.05) Total Protein 6.9 GM/DL (6.4-8.2) Albumin 2.5 GM/DL (3.4-5.0) Nasal Screen MRSA (PCR) MRSA NOT DETECTED (NOT DETECT) Test 10/13/16 10/14/16 03:56 05:26 White Blood Count 7.7 TH/MM3 6.5 TH/MM3 (4.0-11.0) (4.0-11.0) Red Blood Count 2.71 MIL/MM3 2.76 MIL/MM3 (4.50-5.90) (4.50-5.90) Hemoglobin 8.4 GM/DL 8.7 GM/DL (13.0-17.0) (13.0-17.0) Hematocrit 25.8 % 26.6 % (39.0-51.0) (39.0-51.0) Mean Corpuscular Volume 95.1 FL 96.3 FL (80.0-100.0) (80.0-100.0) Mean Corpuscular Hemoglobin 31.0 PG 31.5 PG (27.0-34.0) (27.0-34.0) Mean Corpuscular Hemoglobin 32.6 % 32.7 % Concent (32.0-36.0) (32.0-36.0) Red Cell Distribution Width 14.7 % 14.4 % (11.6-17.2) (11.6-17.2) Platelet Count 170 TH/MM3 167 TH/MM3 (150-450) (150-450) Mean Platelet Volume 7.4 FL 7.0 FL (7.0-11.0) (7.0-11.0) Neutrophils (%) (Auto) 82.4 % 77.9 % (16.0-70.0) (16.0-70.0) Lymphocytes (%) (Auto) 9.4 % 12.2 % (9.0-44.0) (9.0-44.0) Monocytes (%) (Auto) 5.7 % (0.0-8.0) 7.2 % (0.0-8.0) Eosinophils (%) (Auto) 2.3 % (0.0-4.0) 2.4 % (0.0-4.0) Basophils (%) (Auto) 0.2 % (0.0-2.0) 0.3 % (0.0-2.0) Neutrophils # (Auto) 6.4 TH/MM3 5.1 TH/MM3 (1.8-7.7) (1.8-7.7) Lymphocytes # (Auto) 0.7 TH/MM3 0.8 TH/MM3 (1.0-4.8) (1.0-4.8) Monocytes # (Auto) 0.4 TH/MM3 0.5 TH/MM3 (0-0.9) (0-0.9) Eosinophils # (Auto) 0.2 TH/MM3 0.2 TH/MM3 (0-0.4) (0-0.4) Basophils # (Auto) 0.0 TH/MM3 0.0 TH/MM3 (0-0.2) (0-0.2) CBC Comment DIFF FINAL AUTO DIFF Differential Comment AUTO DIFF CONFIRMED Sodium Level 137 MEQ/L 139 MEQ/L (136-145) (136-145) Potassium Level 4.2 MEQ/L 3.9 MEQ/L (3.5-5.1) (3.5-5.1) Chloride Level 100 MEQ/L 101 MEQ/L (98-107) (98-107) Carbon Dioxide Level 29.6 MEQ/L 27.5 MEQ/L (21.0-32.0) (21.0-32.0) Anion Gap 7 MEQ/L (5-15) 11 MEQ/L (5-15) Blood Urea Nitrogen 31 MG/DL (7-18) 40 MG/DL (7-18) Creatinine 3.48 MG/DL 3.69 MG/DL (0.60-1.30) (0.60-1.30) Estimat Glomerular Filtration 17 ML/MIN (>89) 16 ML/MIN (>89) Rate Random Glucose 152 MG/DL 151 MG/DL (74-106) (74-106) Calcium Level 8.1 MG/DL 8.6 MG/DL (8.5-10.1) (8.5-10.1) Magnesium Level 2.0 MG/DL 2.3 MG/DL (1.5-2.5) (1.5-2.5) Result Diagram: 10/14/16 0526 10/14/16 0526 Imaging Last Impressions Chest X-Ray 10/14/16 0600 Signed Impressions: Service Date/Time: Friday, October 14, 2016 04:38 - CONCLUSION: Persistent bilateral lower lung consolidative infiltrates and a new area of non-consolidative infiltrate in the right upper lobe. Miles Acosta MD Abdomen X-Ray 10/12/16 0038 Signed Impressions: Service Date/Time: Wednesday, October 12, 2016 00:30 - CONCLUSION: No dilated loops of small or large bowel. Left lower lobe consolidation and blunting of the right costophrenic angle. Miles Acosta MD Upper Extremity Ultrasound 10/09/16 0000 Signed Impressions: Service Date/Time: Sunday, October 09, 2016 11:40 - CONCLUSION: Normal examination. Lamont Miranda MD Catheter Placement X-Ray 10/09/16 0000 Signed Impressions: Service Date/Time: Sunday, October 09, 2016 16:40 - CONCLUSION: Uncomplicated PermaCath placement as above. Lamont Miranda MD Abdomen/Pelvis CT 10/06/16 1425 Signed Impressions: Service Date/Time: Thursday, October 06, 2016 16:51 - CONCLUSION: 1. Questionable inflammatory or edematous changes around the right kidney. No hydronephrosis or obstructive uropathy. Tiny nonobstructing renal calcifications on the left. No acute findings in the remainder of the abdomen and pelvis. 2. Pars defect at the lumbosacral junction with grade 1 anterolisthesis. Prostatic enlargement. Nelson Schilling MD Procedures 10/09 Hemodialysis catheter placement --interventional radiology Patient/Family Conference Present at Family Conference: , patient Family Conference Time (mins): 35 Family Conference Location: Bedside Issues Discussed: Met with and patient at bedside. Discussion included: * Palliative care role, purpose, approach * Additional medical, psychosocial, and spiritual history * Patients general health, functional status, and cognitive changes in the months leading up to the current hospitalization * Patient/family understanding of the current medical problems * Patient/family understanding of prognosis * Patients goals of care * Current medical treatment options and benefits/burdens of those options- review possible trajectories going forward risks/benefits associated with procedures, as well as risks/benefits ongoing related to his disease processes/ diagnoses * Likely scenarios comparing ongoing aggressive care with a transition to comfort measures only/ review that if patient did not want further aggressive or invasive measures, workups etc. then he would have the option for comfort measures with hospice * Questions answered to the best of my ability * Palliative care contact information provided Patient and appear to have a reasonable understanding of conditions and prognosis. Patient is really anxious to get home. He wants to return to his usual lifestyle and eat his normal foods. Much review of underlying conditions and possible trajectories going forward. At times patient seems more focused on just getting out of the hospital, however his appears to have a very clear understanding of possibilities. They would like to meet with dietitian during hospitalization to assist with diet planning so he made here to recommended nutrition intake for his multiple conditions. For now his goals are expressed that he would want to continue aggressive/ invasive treatments that are offered to help improve his condition so that he could get home and resume his prior quality of life. He indicates he wants to remain full code. However; if he required resuscitation, life support he would not want prolonged artificial measures if not certain of a full or nearly full recovery. Assessment and Plan Disease Oriented Problem List: (1) NSTEMI (non-ST elevated myocardial infarction) (2) Atrial fibrillation with RVR (3) CAD (coronary artery disease) (4) Diabetic nephropathy (5) Acute kidney injury superimposed on CKD (6) Anemia in chronic kidney disease (CKD) (7) HTN (hypertension), benign (8) Hyperkalemia (9) Diabetes mellitus (10) Psoriatic arthritis Symptom Scale: (1) Constipation (2) Pain, abdominal (3) Anxiety (4) Dyspnea Pertinent Non-Medical Issues Psychosocial:. Retired . 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 He has 2 adult children, she has 3 adult children, they are supported by multiple grandchildren, many of whom are local. Born and raised in [facility]. Spiritual: [employer] supported by [employer] known to them Legal:Patient is currently able to make his own decisions. is designated healthcare surrogate, should he become incapacitated Ethical issues impacting care: Important Contacts Valarie Ornelas - [phone] / [phone] Malka Green Sister- [phone] . Prognosis This patient presented for severe abdominal pain, constipation and anuria. He is found to have stage V renal failure requiring hemodialysis, during hospital course experienced nSTEMI, NOT a candidate for open heart procedures, planned for PCI, stenting of 3 vessels today. High risk for additional setbacks/ complications related to multiple underlying disease processes; however also possible he can get through this hospitalization and return home, likely debilitated from hospital course. . . Code Status: Full Code Plan * Legal decision maker:Patient is currently able to make his own decisions. is designated healthcare surrogate, should he become incapacitated * Goals: For now his goals are expressed that he would want to continue aggressive/invasive treatments that are offered to help improve his condition so that he could get home and resume his prior quality of life. He indicates he wants to remain full code. However; if he required resuscitation, life support he would not want prolonged artificial measures if not certain of a full or nearly full recovery. Patient requests to meet with dietitian during hospital course to assist with meal planning for optimal disease management in the home setting. Bin Packer consult ordered- best to see pt tomorrow as mult procedure planned today. * CODE STATUS: FULL CODE * SYMPTOMS: --Abdominal pain-percent it with abdominal pain, severe constipation. Has since resolved. Multifactorial--s/p renal calculi, acute kidney failure with anuria, CAD/NSTEMI --Constipation-presented with constipation no BM x several days. Did have multiple bowel movements 10/12, has prn lactulose available. May benefit from daily scheduled senna or Colace. --Dyspnea-ongoing shortness of breath, high FiO2 requirements, 2/2 disease processsevere three-vessel CAD, renal failure requiring dialysis; patient subjectively endorsing breathing feeling okay no shortness of breath reported today --Anxiety-patient endorses anxiety and feeling of loss of control during hospital course. He really wants to get home. He feels like he is out of control overlooks being done for him. This is likely situational. Had prn lorazepam available, enc pt to use as needed. has not used yet. Depending on clinical course may benefit long-term from addition of SSRI such as sertraline - -discussed this today with patient and . * Palliative care will continue to follow during hospital course as condition evolves, to assist patient/decision-maker with understanding of medical conditions, weighing benefits/burdens of treatment options, for clarification of goals of treatment. Additionally will assist with any symptoms of palliative concern . Time Spent Total Floor Time (mins): 60 >50% Counseling/Coord of Care: Yes (jeannette RN, medical attending) Thank you for the opportunity to participate in the care of Mr. Ornelas. Attestation To help prompt me to consider important information that might be impacting today's encounter and assessment, information from prior notes written by myself or my colleagues may have been "brought forward" into today's note. My signature on this note, however, is an attestation that I personally performed the exam, history, and/or decision-making noted today, and, unless otherwise indicated, the interactions with patient, family, and staff as well as the review of records all occurred today. I also attest that the listed assessment and stated plan reflect my best clinical judgment today based on the combination of historical information, prior notes, and today's exam/ interactions. When time spent is documented, it refers only to time spent today by the signer, or if indicated, combined time spent today by collaborating physician/nurse practitioner. Sultana Diaz Oct 14, 2016 09:46
--- NOTE | 2016-10-14 09:47 | HHI.PR ---
Subjective Remarks Pt was anxious last night but this is stable so far today Pt still on rebreather mask with O2 flow rate of 12L Pt with 400mL of urine in Seay Bag at 1000AM Pt to have repeat LHC today and HD this afternoon Pt in rate controlled A. flutter on telemetry at the time of exam Objective Vitals Vital Signs Date Time Temp Pulse Resp B/P Pulse Ox O2 Delivery O2 Flow Rate FiO2 10/14/16 07:18 98 Partial Rebreather 10/14/16 06:00 80 10/14/16 04:00 73 10/14/16 04:00 99.0 73 24 112/58 97 10/14/16 02:00 67 10/14/16 00:00 69 10/14/16 00:00 99.0 69 25 134/55 96 10/13/16 22:21 97 Partial Rebreather 12.00 10/13/16 22:00 74 10/13/16 20:00 99.0 79 26 109/58 99 10/13/16 20:00 79 10/13/16 19:00 94 Non-Rebreather 15.00 10/13/16 18:00 74 10/13/16 17:45 75 37 117/57 99 10/13/16 17:30 69 46 116/61 98 10/13/16 17:15 71 23 121/61 100 10/13/16 17:00 91 42 118/67 88 10/13/16 16:45 74 25 118/64 100 10/13/16 16:30 76 27 110/57 99 10/13/16 16:15 74 26 107/60 99 10/13/16 16:00 98.5 79 28 111/62 98 10/13/16 16:00 79 10/13/16 15:45 92 36 105/58 89 10/13/16 15:31 85 118/89 98 10/13/16 15:15 98 31 108/64 95 10/13/16 15:00 86 30 114/62 98 10/13/16 14:52 110 22 118/73 97 10/13/16 14:45 140 41 112/68 94 10/13/16 14:41 138 43 114/72 89 10/13/16 14:00 72 20 113/58 10/13/16 14:00 72 10/13/16 13:00 69 21 105/65 94 8/15/17 12:45 73 30 113/58 90 10/13/16 12:31 78 25 133/62 91 10/13/16 12:15 85 11 112/66 88 10/13/16 12:00 98.7 73 25 112/60 94 10/13/16 12:00 73 10/13/16 11:45 77 32 111/60 93 10/13/16 11:30 72 18 121/62 94 10/13/16 11:15 76 20 123/70 92 10/13/16 11:01 73 23 128/58 94 10/13/16 11:00 73 31 94 10/13/16 10:45 74 28 158/93 97 10/13/16 10:33 74 34 126/90 93 10/13/16 10:15 71 28 114/55 10/13/16 10:00 73 10/13/16 10:00 73 76 117/56 10/13/16 10/13/16 10/14/16 15:00 23:00 07:00 Intake Total 163 ml 480 ml 40 ml Output Total 300 ml 300 ml 250 ml Balance -137 ml 180 ml -210 ml Intake Oral 120 ml 450 ml 0 ml IV Total 43 ml 30 ml 40 ml Output Urine Total 300 ml 300 ml 250 ml # Bowel Movements 0 0 Result Diagram: 10/14/16 0526 10/14/16 0526 Other Results Laboratory Tests Test 10/13/16 10/14/16 03:56 05:26 White Blood Count 7.7 TH/MM3 6.5 TH/MM3 Red Blood Count 2.71 MIL/MM3 2.76 MIL/MM3 Hemoglobin 8.4 GM/DL 8.7 GM/DL Hematocrit 25.8 % 26.6 % Mean Corpuscular Volume 95.1 FL 96.3 FL Mean Corpuscular Hemoglobin 31.0 PG 31.5 PG Mean Corpuscular Hemoglobin 32.6 % 32.7 % Concent Red Cell Distribution Width 14.7 % 14.4 % Platelet Count 170 TH/MM3 167 TH/MM3 Mean Platelet Volume 7.4 FL 7.0 FL Neutrophils (%) (Auto) 82.4 % 77.9 % Lymphocytes (%) (Auto) 9.4 % 12.2 % Monocytes (%) (Auto) 5.7 % 7.2 % Eosinophils (%) (Auto) 2.3 % 2.4 % Basophils (%) (Auto) 0.2 % 0.3 % Neutrophils # (Auto) 6.4 TH/MM3 5.1 TH/MM3 Lymphocytes # (Auto) 0.7 TH/MM3 0.8 TH/MM3 Monocytes # (Auto) 0.4 TH/MM3 0.5 TH/MM3 Eosinophils # (Auto) 0.2 TH/MM3 0.2 TH/MM3 Basophils # (Auto) 0.0 TH/MM3 0.0 TH/MM3 CBC Comment DIFF FINAL AUTO DIFF Differential Comment AUTO DIFF CONFIRMED Sodium Level 137 MEQ/L 139 MEQ/L Potassium Level 4.2 MEQ/L 3.9 MEQ/L Chloride Level 100 MEQ/L 101 MEQ/L Carbon Dioxide Level 29.6 MEQ/L 27.5 MEQ/L Anion Gap 7 MEQ/L 11 MEQ/L Blood Urea Nitrogen 31 MG/DL 40 MG/DL Creatinine 3.48 MG/DL 3.69 MG/DL Estimat Glomerular Filtration 17 ML/MIN 16 ML/MIN Rate Random Glucose 152 MG/DL 151 MG/DL Calcium Level 8.1 MG/DL 8.6 MG/DL Magnesium Level 2.0 MG/DL 2.3 MG/DL Imaging Last Impressions Chest X-Ray 10/14/16 0600 Signed Impressions: Service Date/Time: Friday, October 14, 2016 04:38 - CONCLUSION: Persistent bilateral lower lung consolidative infiltrates and a new area of non-consolidative infiltrate in the right upper lobe. Miles Acosta MD Abdomen X-Ray 10/12/16 0038 Signed Impressions: Service Date/Time: Wednesday, October 12, 2016 00:30 - CONCLUSION: No dilated loops of small or large bowel. Left lower lobe consolidation and blunting of the right costophrenic angle. Miles Acosta MD Upper Extremity Ultrasound 10/09/16 0000 Signed Impressions: Service Date/Time: Sunday, October 09, 2016 11:40 - CONCLUSION: Normal examination. Lamont Miranda MD Catheter Placement X-Ray 10/09/16 0000 Signed Impressions: Service Date/Time: Sunday, October 09, 2016 16:40 - CONCLUSION: Uncomplicated PermaCath placement as above. Lamont Miranda MD Abdomen/Pelvis CT 10/06/16 1425 Signed Impressions: Service Date/Time: Thursday, October 06, 2016 16:51 - CONCLUSION: 1. Questionable inflammatory or edematous changes around the right kidney. No hydronephrosis or obstructive uropathy. Tiny nonobstructing renal calcifications on the left. No acute findings in the remainder of the abdomen and pelvis. 2. Pars defect at the lumbosacral junction with grade 1 anterolisthesis. Prostatic enlargement. Nelson Schilling MD Objective Remarks General: NAD, AAOx3 Chest: Decreased breath sounds and basilar crackles Cardiac: Irregular Abd: +BS, soft ND/NT Seay cath in place with dark tea colored urine present Ext: No edema A/P Problem List: (1) Acute kidney injury superimposed on CKD Status: Acute Plan: - Pt with chronic kidney disease, stage 4 due to DM who presented to the ED with constipation and urinary retention. - He was found to have acute worsening of his renal function with Cr 5.44/BUN 36 , GFR 10 - Pt started on IVF hydration. - Pt had Seay catheter placed at admission for monitoring UOP. - His bun/cr and gfr failed to improve - PermCath placement 10/09 - HD initiated on 10/10 - Seay removed 10/10 - Nephrology discussed with the pt AV fistula placement as well. Vascular surgery was consulted and AVF had been planned for 10/12 but pt had some respiratory insufficiency the night before and was transferred to ICU. - CXR (10/12) --> Interval development of significant airspace opacities throughout the right lung and dense consolidation left lower lobe. - Pt developed A. fib RVR and had some previous complaints of chest pain and was evaluated by Cardiology and is underwent LHC on 10/12 which noted severe [place] three-vessel coronary artery disease. - CTS felt that there were no good bypass targets. - AVF surgery has been postponed until he is stable from a cardiac standpoint. - He had emergent HD on 10/12, and will be going for HD today after LHC - Urine culture with no growth - Seay cath replaced on 10/12 - Avoid nephrotoxic medications. - PRN BP control. - DVT prophylaxis with SCDs (2) NSTEMI (non-ST elevated myocardial infarction) Status: Acute Plan: - Pt had complained of some chest pain following PermCath placement - He was noted to have EKG changes, including RBBB and ST and T-wave changes, with an elevated troponin of 1.84, and with his previous complaints of chest pain it was felt that the patient did sustain a cardiovascular event. - He is currently chest pain free. - Cardiology following. - Pt underwent LHC (10/12/16) --> Severe [place] three-vessel coronary artery disease. Normal left-sided filling pressures. - CTS felt there there were no good target vessels - Cardiology planning for repeat LHC for possible PCI today - Pt still on NR mask for low O2 sats (3) SOB (shortness of breath) Status: Acute Plan: - On 10/12 pt had some respiratory insufficiency and was transferred to ICU. - CXR (10/12) --> Interval development of significant airspace opacities throughout the right lung and dense consolidation left lower lobe. - Pt underwent emergent HD on Thursday 10/12 - CXR (10/14) --> Persistent bilateral lower lung consolidative infiltrates and a new area of non-consolidative infiltrate in the right upper lobe. - 2D echo (10/13): - Mildly dilated LV, mild concentric LVH - EF 30-35% - Global LV dysfunction with apical akinesis - Trace mitral valve regurg - Aortic valve sclerosis - Trace tricuspid valve regurg - Normal estimated PA pressure (4) Atrial fibrillation with RVR Status: Acute Plan: - Pt developed A. fib RVR overnight last night. - 2D echocardiogram as above - Pt was started on Cardizem drip for rate control and converted to NSR - Pt in rate controlled A. flutter at the time of examination today - Pt is on Metoprolol 100mg po BID. (5) Diabetic nephropathy Status: Chronic Plan: - A1c was 6.5 in 04/2016. - Accu checks BID - NovoLog SSI (6) Anemia in chronic kidney disease (CKD) Status: Chronic Plan: - related to ckd. - per renal. (7) Hyperkalemia Status: Acute Plan: - Recurring issue a/w CKD. Avoiding KANNAN-I and ARB. - Improved - Monitor labs (8) HTN (hypertension), benign Status: Chronic Plan: - Quite volatile at times. - Cont. Metoprolol 100mg po BID. - Norvasc 5mg po daily added on 10/08 - Pt is on Diltazem gtt - Clonidine prn. (9) CAD (coronary artery disease) Status: Chronic Plan: - See above. (10) Psoriatic arthritis Status: Chronic Plan: - Stable. Outpt care. He has not wanted aggressive intervention Assessment and Plan Patient examined. Assessment and plan formulated with Joan Park PA-C. I agree with the above. Problem Qualifiers (1) Diabetic nephropathy: (2) Anemia in chronic kidney disease (CKD): Joan Park Oct 14, 2016 09:47 Mahendra Puentes DO Oct 18, 2016 22:48
[2016-10-14] MEDS: GENTAMICIN SULFATE (DIALYSIS USE ONLY) 20 MG/2 ML VIAL IV PRN (14:11)
[2016-10-14] MEDS: EPOETIN ALFA 10,000 UNITS/ML VIAL IV PRN (14:11)
[2016-10-14] MEDS: CHLORHEXIDINE GLUCONATE 2 % 1 PACK (2 CLOTHS)(taper/protocol) TOPICAL SCH (19:31)
[2016-10-15] VITALS (12 sets, daily range): BP systolic 99–124; BP diastolic 55–68; PULSE 66–99; RESP 18–30; TEMP 97.9–98.5; O2SAT 98–100
[2016-10-15] MEDS: INSULIN ASPART SUPPLEMENTAL SCALE SQ SCH (01:26)
--- NOTE | 2016-10-15 06:07 | RADRPT ---
EXAM DATE/TIME: 10/15/2016 03:59 [facility] COMPARISON: CHEST SINGLE AP, October 14, 2016, 4:38. INDICATIONS : Shortness of breath, possible pulmonary disease. MEDICAL HISTORY : Renal failure, chronic. Diabetes mellitus type II. Hypertension. [place] SURGICAL HISTORY : Inguinal hernia repair. ENCOUNTER: Subsequent ACUITY: 4 - 6 days PAIN SCORE: Non-responsive. LOCATION: Bilateral chest FINDINGS: Double-lumen catheter tip projects in the right atrium. Persistent consolidation in the left lower l vero and hazy opacities in the mid and lower lungs bilaterally characteristic of pleural effusions. H eart is stable in size. CONCLUSION: Persistent bilateral pleural effusions and lower lung consolidation. Miles Acosta MD on October 15, 2016 at 6:04 Board Certified Radiologist. This report was verified electronically.
[2016-10-15 06:41] LABS: BICARBONATE 30.1 MEQ/L (21.0-32.0); POTASSIUM 3.8 MEQ/L (3.5-5.1)
--- NOTE | 2016-10-15 08:06 | PD.CARD.PN ---
Subjective Subjective Remarks still on NRB mask for supplemental Oxygen (Clive Kay) Objective Vital Signs / I&O Vital Signs Date Time Temp Pulse Resp B/P Pulse Ox O2 Delivery O2 Flow Rate FiO2 10/15/16 06:00 74 10/15/16 04:00 75 10/15/16 04:00 97.9 75 30 104/55 100 10/15/16 02:00 71 10/15/16 00:00 98.3 66 24 99/56 100 10/15/16 00:00 66 10/14/16 22:00 81 10/14/16 20:00 81 10/14/16 20:00 98.1 81 26 102/55 95 10/14/16 20:00 Partial Non-Rebreather 15.00 10/14/16 18:07 95 Partial Rebreather 15.00 10/14/16 18:00 84 10/14/16 18:00 100 Partial Non-Rebreather 15.00 10/14/16 16:00 79 10/14/16 16:00 98.0 79 23 111/59 96 10/14/16 14:38 96 Nasal Cannula 3.00 10/14/16 14:30 95 Nasal Cannula 3.00 10/14/16 14:30 96 Nasal Cannula 3.00 10/14/16 14:00 85 10/14/16 12:00 98.8 67 47 115/59 10/14/16 12:00 67 10/14/16 10:00 70 I/O 10/14/16 10/14/16 10/14/16 10/15/16 10/15/16 10/15/16 07:00 15:00 23:00 07:00 15:00 23:00 Intake Total 40 ml 158 ml 45 ml 35 ml Output Total 250 ml 3825 ml 250 ml 200 ml Balance -210 ml -3667 ml -205 ml -165 ml Intake Oral 0 ml 50 ml 0 ml 0 ml IV Total 40 ml 108 ml 45 ml 35 ml Output Urine Total 250 ml 325 ml 250 ml 200 ml Hemodialysis 3500 ml # Bowel Movements 0 0 0 Physical Exam GENERAL: Well-nourished, well-developed patient in no apparent distress. NECK: No JVD. No carotid bruit. CARDIOVASCULAR: Regular rate and rhythm. S1/S2 no murmur, rub, or gallop. RESPIRATORY: No accessory muscle use. Clear to auscultation. Breath sounds equal bilaterally. GASTROINTESTINAL: Abdomen soft, non-tender, nondistended. MUSCULOSKELETAL: Extremities without clubbing, cyanosis, or edema. Laboratory Laboratory Tests Test 10/15/16 05:50 Sodium Level 140 MEQ/L Potassium Level 3.8 MEQ/L Chloride Level 98 MEQ/L Carbon Dioxide Level 30.1 MEQ/L Anion Gap 12 MEQ/L Blood Urea Nitrogen 39 MG/DL Creatinine 3.41 MG/DL Estimat Glomerular Filtration 18 ML/MIN Rate Random Glucose 136 MG/DL Calcium Level 8.7 MG/DL (Clive Kay) Assessment and Plan Problem List: (1) CAD (coronary artery disease) (2) HTN (hypertension), benign Assessment and Plan CAD - there is not any good bypass targets, will determine if he can lie flat then plan PCI today with dialysis to follow HTN - well controlled (Clive Kay) Assessment and Plan still SOB on NRB mask s/p HD yest we had a lengthy conversation with present. His prognosis is not good. Any intervention would be very high risk. Risk > Benefit at this point patient and agreeable to consider hospice. will cancel plans for PCI optimize med mgt (Martin Ortiz MD) Clive Kay Oct 15, 2016 08:06 Martin Ortiz MD Oct 15, 2016 09:14
[2016-10-15] MEDS: FAMOTIDINE 20 MG TAB PO SCH (08:53)
[2016-10-15] MEDS: TAMSULOSIN HCL 0.4 MG CAP PO SCH (08:53)
[2016-10-15] MEDS: CALCITRIOL 0.25 MCG CAP PO SCH (08:53)
[2016-10-15] MEDS: amLODIPine BESYLATE 5 MG TAB PO SCH (08:53)
[2016-10-15] MEDS: VITAMIN B CMPLX/VITC/FOLIC AC CAP PO SCH (08:54)
[2016-10-15] MEDS: METOPROLOL TARTRATE 100 MG TAB PO SCH (08:54)
--- NOTE | 2016-10-15 08:55 | EKG ---
Date Performed: 10/13/2016 Time Performed: 14:51:46 PTAGE: 71 years EKG: Atrial flutter Left axis deviation RBBB with left anterior fascicular block Inferior/latera l ST-T changes may be due to myocardial ischemia Abnormal ECG PREVIOUS TRACING : 10/13/2016 14.48 Compared to prior tracing no significant change DOCTOR: Arun Lai Interpretating Date/Time 10/15/2016 08:51:25
--- NOTE | 2016-10-15 08:56 | EKG ---
Date Performed: 10/13/2016 Time Performed: 14:48:22 PTAGE: 71 years EKG: Atrial flutter with rapid ventricular response with 2:1 A-V block Left axis deviation RBBB with left anterior fascicular block Inferior/lateral ST-T changes may be due to myocardial ischemia A bnormal ECG Compared to the PREVIOUS TRACING from 10/12/16, previously atrial fibrillation and ST/T wave changes were more extensive DOCTOR: Arun Lai Interpretating Date/Time 10/15/2016 08:53:09
--- NOTE | 2016-10-15 09:14 | HHI.NPPN ---
Subjective History of Present Illness 70-year-old male with past medical history of chronic kidney disease, hypertension, ischemic heart disease, hyperlipidemia, chronic anemia was brought to the hospital because of severe constipation and decreased urine output. I was called to see the patient because of elevated BUN and creatinine. Additional Remarks This is late entry, note for 10/14/16. Patient is more lethargic after HD, breathing is better, not eating well. Review of Systems General Constitutional: Fatigue Cardiovascular Cardiac: MEZA Gastrointestinal Gastrointestinal: Constipation Objective Data Data 10/14/16 10/15/16 19:00 07:00 Intake Total 158 ml 80 ml Output Total 3825 ml 450 ml Balance -3667 ml -370 ml Intake Oral 50 ml 0 ml IV Total 108 ml 80 ml Output Urine Total 325 ml 450 ml Hemodialysis 3500 ml # Bowel Movements 0 0 Vital Signs Date Time Temp Pulse Resp B/P Pulse Ox O2 Delivery O2 Flow Rate FiO2 10/15/16 06:00 74 10/15/16 04:00 75 10/15/16 04:00 97.9 75 30 104/55 100 10/15/16 02:00 71 10/15/16 00:00 98.3 66 24 99/56 100 10/15/16 00:00 66 10/14/16 22:00 81 10/14/16 20:00 81 10/14/16 20:00 98.1 81 26 102/55 95 10/14/16 20:00 Partial Non-Rebreather 15.00 10/14/16 18:07 95 Partial Rebreather 15.00 10/14/16 18:00 84 10/14/16 18:00 100 Partial Non-Rebreather 15.00 10/14/16 16:00 79 10/14/16 16:00 98.0 79 23 111/59 96 10/14/16 14:38 96 Nasal Cannula 3.00 10/14/16 14:30 95 Nasal Cannula 3.00 10/14/16 14:30 96 Nasal Cannula 3.00 10/14/16 14:00 85 10/14/16 12:00 98.8 67 47 115/59 10/14/16 12:00 67 10/14/16 10:00 70 -: 10/14/16 0526 10/15/16 0550 Physical Exam General Appearance: No Acute Distress, Comfortable Eyes Eye Exam: Pupils Equal Throat Throat Exam: Oral Mucosa [place] & Moist Neck Neck Exam: Neck Supple Pulmonary Resp Exam: Clear Bilaterally, Breath Sounds Equal, Rhonchi, Decreased Bases Cardiology CV Exam: Regular, Normal Sinus Rhythm Gastrointestinal/Abdomen GI Exam: Soft, Non-Tender, Bowel Sounds Present, Non-Distended Extremeties Extremities Exam: No Edema Neurologic Neuro Exam: Alert, Awake, Oriented Psychiatric Psych Exam: Appropriate Responses Assessment/Plan Assessment Summary: Anemia of CKD, Dehydration, Hypertension, CKD Stage IV Problem List: (1) CAD (coronary artery disease) (2) Diabetic nephropathy (3) HTN (hypertension), benign (4) Hyperkalemia (5) Diabetes mellitus (6) Anemia in chronic kidney disease (CKD) (7) Acute kidney injury superimposed on CKD Plan Patient has advance renal disease. Atrophic kidneys on CT scan. Non oliguric, BP is on higher side. On Metoprolol, started on Amlodipine. Creatinine is still elevated and GFR is 10-11 ml/min. Has advance end stage renal disease. Got PermCath and HD started. Vascular surgery consult appreciated. Cardiac Cath. not done as he has SOB and more fluid. HD done in AM and 3.5 liters removed. Cardiac cath. and possible stent in AM. D/W the . Problem Qualifiers (1) Diabetic nephropathy: Qualified Code: E11.21 - Diabetic nephropathy associated with type 2 diabetes mellitus (2) Diabetes mellitus: (3) Anemia in chronic kidney disease (CKD): Qualified Code: N18.5 - Anemia in stage 5 chronic kidney disease, not on chronic dialysis Daphne Davidson MD Oct 15, 2016 09:14
--- NOTE | 2016-10-15 09:36 | HHI.PR ---
Subjective Remarks No new medical complaints. Objective Vitals Vital Signs Date Time Temp Pulse Resp B/P Pulse Ox O2 Delivery O2 Flow Rate FiO2 10/15/16 06:00 74 10/15/16 04:00 75 10/15/16 04:00 97.9 75 30 104/55 100 10/15/16 02:00 71 10/15/16 00:00 98.3 66 24 99/56 100 10/15/16 00:00 66 10/14/16 22:00 81 10/14/16 20:00 81 10/14/16 20:00 98.1 81 26 102/55 95 10/14/16 20:00 Partial Non-Rebreather 15.00 10/14/16 18:07 95 Partial Rebreather 15.00 10/14/16 18:00 84 10/14/16 18:00 100 Partial Non-Rebreather 15.00 10/14/16 16:00 79 10/14/16 16:00 98.0 79 23 111/59 96 10/14/16 14:38 96 Nasal Cannula 3.00 10/14/16 14:30 95 Nasal Cannula 3.00 10/14/16 14:30 96 Nasal Cannula 3.00 10/14/16 14:00 85 10/14/16 12:00 98.8 67 47 115/59 10/14/16 12:00 67 10/14/16 10:00 70 10/14/16 10/14/16 10/15/16 15:00 23:00 07:00 Intake Total 158 ml 45 ml 35 ml Output Total 3825 ml 250 ml 200 ml Balance -3667 ml -205 ml -165 ml Intake Oral 50 ml 0 ml 0 ml IV Total 108 ml 45 ml 35 ml Output Urine Total 325 ml 250 ml 200 ml Hemodialysis 3500 ml # Bowel Movements 0 0 Result Diagram: 10/14/16 0526 10/15/16 0550 Imaging Last Impressions Chest X-Ray 10/15/16 0600 Signed Impressions: Service Date/Time: September 03:59 - CONCLUSION: Persistent bilateral pleural effusions and lower lung consolidation. Miles Acosta MD Abdomen X-Ray 10/12/16 0038 Signed Impressions: Service Date/Time: Wednesday, October 12, 2016 00:30 - CONCLUSION: No dilated loops of small or large bowel. Left lower lobe consolidation and blunting of the right costophrenic angle. Miles Acosta MD Upper Extremity Ultrasound 10/09/16 0000 Signed Impressions: Service Date/Time: Sunday, October 09, 2016 11:40 - CONCLUSION: Normal examination. Lamont Miranda MD Catheter Placement X-Ray 10/09/16 0000 Signed Impressions: Service Date/Time: Sunday, October 09, 2016 16:40 - CONCLUSION: Uncomplicated PermaCath placement as above. Lamont Miranda MD Abdomen/Pelvis CT 10/06/16 1425 Signed Impressions: Service Date/Time: Thursday, October 06, 2016 16:51 - CONCLUSION: 1. Questionable inflammatory or edematous changes around the right kidney. No hydronephrosis or obstructive uropathy. Tiny nonobstructing renal calcifications on the left. No acute findings in the remainder of the abdomen and pelvis. 2. Pars defect at the lumbosacral junction with grade 1 anterolisthesis. Prostatic enlargement. Nelson Schilling MD Objective Remarks General: NAD, AAOx3 Chest: Decreased breath sounds and basilar crackles Cardiac: Irregular Abd: +BS, soft ND/NT Seay cath in place with dark tea colored urine present Ext: No edema A/P Problem List: (1) Acute kidney injury superimposed on CKD Status: Acute Plan: - Pt with chronic kidney disease, stage 4 due to DM who presented to the ED with constipation and urinary retention. - He was found to have acute worsening of his renal function with Cr 5.44/BUN 36 , GFR 10 - Pt started on IVF hydration. - Pt had Seay catheter placed at admission for monitoring UOP. - His bun/cr and gfr failed to improve - PermCath placement 10/09 - HD initiated on 10/10 - Seay removed 10/10 - Nephrology discussed with the pt AV fistula placement as well. Vascular surgery was consulted and AVF had been planned for 10/12 but pt had some respiratory insufficiency the night before and was transferred to ICU. - CXR (10/12) --> Interval development of significant airspace opacities throughout the right lung and dense consolidation left lower lobe. - Pt developed A. fib RVR and had some previous complaints of chest pain and was evaluated by Cardiology and is underwent LHC on 10/12 which noted severe [place] three-vessel coronary artery disease. - CTS felt that there were no good bypass targets. - AVF surgery has been postponed until he is stable from a cardiac standpoint. - He had emergent HD on 10/12 - I had an extensive conversation with Dr. Ortiz (10/14 and 10/15/16). Pt is NOT a surgical candidate, but with pt's continued decline in status LHC would convey high risk of or other serious complications. - Pt's continued declined d/w pt and at length at bedside. - Pt/ do NOT want to proceed with LHC. I informed Dr. Ortiz. - Pt does NOT want further dialysis. - Pt requests to have PermCath removed - Pt/family request hospice, specifically [facility] - Transfer out of ICU when bed available - ativan prn - morphin/lortab prn pain (2) NSTEMI (non-ST elevated myocardial infarction) Status: Acute Plan: - Pt had complained of some chest pain following PermCath placement - He was noted to have EKG changes, including RBBB and ST and T-wave changes, with an elevated troponin of 1.84, and with his previous complaints of chest pain it was felt that the patient did sustain a cardiovascular event. - He is currently chest pain free. - Cardiology following. - Pt underwent LHC (10/12/16) --> Severe [place] three-vessel coronary artery disease. Normal left-sided filling pressures. - CTS felt there there were no good target vessels - see above (3) SOB (shortness of breath) Status: Acute Plan: - On 10/12 pt had some respiratory insufficiency and was transferred to ICU. - CXR (10/12) --> Interval development of significant airspace opacities throughout the right lung and dense consolidation left lower lobe. - Pt underwent emergent HD on Thursday 10/12 - CXR (10/14) --> Persistent bilateral lower lung consolidative infiltrates and a new area of non-consolidative infiltrate in the right upper lobe. - 2D echo (10/13): - Mildly dilated LV, mild concentric LVH - EF 30-35% - Global LV dysfunction with apical akinesis - Trace mitral valve regurg - Aortic valve sclerosis - Trace tricuspid valve regurg - Normal estimated PA pressure (4) Atrial fibrillation with RVR Status: Acute Plan: - Pt developed A. fib RVR overnight last night. - 2D echocardiogram as above - tele: a fib - metoprolol 50mg bid - wean off cardizem gtt (5) Diabetic nephropathy Status: Chronic Plan: - A1c was 6.5 in 04/2016. - Accu checks BID - NovoLog SSI (6) Anemia in chronic kidney disease (CKD) Status: Chronic Plan: - related to ckd. - per renal. (7) Hyperkalemia Status: Acute Plan: - Recurring issue a/w CKD. Avoiding KANNAN-I and ARB. - Improved - Monitor labs (8) HTN (hypertension), benign Status: Chronic Plan: - Quite volatile at times. - Cont. Metoprolol 100mg po BID. - Norvasc 5mg po daily added on 10/08 - Pt is on Diltazem gtt - Clonidine prn. (9) CAD (coronary artery disease) Status: Chronic Plan: - See above. (10) Psoriatic arthritis Status: Chronic Plan: - Stable. Outpt care. He has not wanted aggressive intervention Problem Qualifiers (1) Diabetic nephropathy: (2) Anemia in chronic kidney disease (CKD): Mahendra Puentes DO Oct 15, 2016 09:36
[2016-10-15] MEDS ORDERED: MORPHINE SULFATE 4 MG/ML INJ IV PUSH PRN (09:45)
[2016-10-15] MEDS ORDERED: ACETAMINOPHEN/HYDROcodone 325 MG/5 MG TAB PO PRN (09:45)
[2016-10-15] MEDS ORDERED: LIDOCAINE 1%/EPINEPHrine 1:100,000 SOLN 20 ML VIAL ONE (10:53)
--- NOTE | 2016-10-15 12:31 | HHI.NPPN ---
Subjective History of Present Illness 70-year-old male with past medical history of chronic kidney disease, hypertension, ischemic heart disease, hyperlipidemia, chronic anemia was brought to the hospital because of severe constipation and decreased urine output. I was called to see the patient because of elevated BUN and creatinine. Additional Remarks Patient is more alert today and breathing is better, not in distress. Review of Systems General Constitutional: Fatigue Cardiovascular Cardiac: MEZA Gastrointestinal Gastrointestinal: Constipation Objective Data Data 10/14/16 10/15/16 19:00 07:00 Intake Total 158 ml 80 ml Output Total 3825 ml 450 ml Balance -3667 ml -370 ml Intake Oral 50 ml 0 ml IV Total 108 ml 80 ml Output Urine Total 325 ml 450 ml Hemodialysis 3500 ml # Bowel Movements 0 0 Vital Signs Date Time Temp Pulse Resp B/P Pulse Ox O2 Delivery O2 Flow Rate FiO2 10/15/16 12:00 98.5 74 29 124/65 10/15/16 12:00 74 10/15/16 11:00 89 10/15/16 10:00 73 10/15/16 09:00 99 10/15/16 08:00 75 10/15/16 08:00 98.0 75 18 117/68 99 10/15/16 07:00 98 Partial Non-Rebreather 15.00 10/15/16 07:00 74 10/15/16 06:00 74 10/15/16 04:00 75 10/15/16 04:00 97.9 75 30 104/55 100 10/15/16 02:00 71 10/15/16 00:00 98.3 66 24 99/56 100 10/15/16 00:00 66 10/14/16 22:00 81 10/14/16 20:00 81 10/14/16 20:00 98.1 81 26 102/55 95 10/14/16 20:00 Partial Non-Rebreather 15.00 10/14/16 18:07 95 Partial Rebreather 15.00 10/14/16 18:00 84 10/14/16 18:00 100 Partial Non-Rebreather 15.00 10/14/16 16:00 79 10/14/16 16:00 98.0 79 23 111/59 96 10/14/16 14:38 96 Nasal Cannula 3.00 10/14/16 14:30 95 Nasal Cannula 3.00 10/14/16 14:30 96 Nasal Cannula 3.00 10/14/16 14:00 85 -: 10/14/16 0526 10/15/16 0550 Physical Exam General Appearance: No Acute Distress, Anxious, Malnourished Eyes Eye Exam: Pupils Equal Throat Throat Exam: Oral Mucosa [place] & Moist Neck Neck Exam: Neck Supple Pulmonary Resp Exam: Clear Bilaterally, Breath Sounds Equal, Rhonchi, Decreased Bases Cardiology CV Exam: Regular, Normal Sinus Rhythm Gastrointestinal/Abdomen GI Exam: Soft, Non-Tender, Bowel Sounds Present, Non-Distended Extremeties Extremities Exam: Trace Edema Neurologic Neuro Exam: Alert, Awake, Oriented Psychiatric Psych Exam: Appropriate Responses Assessment/Plan Assessment Summary: Anemia of CKD, Dehydration, Hypertension, CKD Stage IV Problem List: (1) CAD (coronary artery disease) (2) Diabetic nephropathy (3) HTN (hypertension), benign (4) Hyperkalemia (5) Diabetes mellitus (6) Anemia in chronic kidney disease (CKD) (7) Acute kidney injury superimposed on CKD Plan Patient has advance renal disease. Atrophic kidneys on CT scan. Non oliguric, BP is on higher side. On Metoprolol, started on Amlodipine. Creatinine is still elevated and GFR is 10-11 ml/min. Has advance end stage renal disease. Got PermCath and HD started. Vascular surgery consult appreciated. Cardiac Cath. not done as he has SOB and more fluid. HD done yesterday and 3.5 liters removed. Family now decided to go for Hospice and stop all active treatment including HD. D/W the patient and the family at bed side. Problem Qualifiers (1) Diabetic nephropathy: Qualified Code: E11.21 - Diabetic nephropathy associated with type 2 diabetes mellitus (2) Diabetes mellitus: (3) Anemia in chronic kidney disease (CKD): Qualified Code: N18.5 - Anemia in stage 5 chronic kidney disease, not on chronic dialysis Daphne Davidson MD Oct 15, 2016 12:31
[2016-10-15] MEDS ORDERED: ISOS60TA PO (13:59)
[2016-10-15] MEDS ORDERED: METO-309 PO (13:59)
--- NOTE | 2016-10-15 14:02 | HHI.DCPOC ---
Discharge Care Plan Diagnosis: (1) NSTEMI (non-ST elevated myocardial infarction) (2) Anxiety (3) Atrial fibrillation with RVR (4) Diabetes mellitus (5) HTN (hypertension), benign Goals to Promote Your Health * To prevent worsening of your condition and complications * To maintain your health at the optimal level Directions to Meet Your Goals Take your medications as prescribed Follow your dietary instruction Follow activity as directed Keep your appointments as scheduled Take your immunizations and boosters as scheduled If your symptoms worsen call your PCP, if no PCP go to Urgent Care Center or Emergency Room Smoking is Dangerous to Your Health. Avoid second hand smoke Call the 24-hour hour crisis hotline for domestic abuse at Mahendra Puentes DO Oct 15, 2016 14:02
--- NOTE | 2016-10-15 14:06 | HHI.DS ---
Discharge Summary Admission Date Oct 09, 2016 at 09:44 Discharge Date: Oct 15, 2016 Admitting Diagnosis CELESTE, hyperkalemia (1) NSTEMI (non-ST elevated myocardial infarction) Diagnosis: Principal (2) Acute kidney injury superimposed on CKD Diagnosis: Principal (3) SOB (shortness of breath) Diagnosis: Principal (4) Atrial fibrillation with RVR Diagnosis: Principal (5) Diabetic nephropathy Diagnosis: Secondary (6) Anemia in chronic kidney disease (CKD) Diagnosis: Secondary (7) Hyperkalemia Diagnosis: Principal (8) HTN (hypertension), benign Diagnosis: Secondary (9) CAD (coronary artery disease) Diagnosis: Secondary (10) Psoriatic arthritis Diagnosis: Secondary Consultants Dr. Engel, Nephrology Dr. Ortiz, Cardiology Dr. Ness, Vascular Surgery Dr. Dickson, Palliative Care Brief History 71 YO M with PMH of DM, HTN, CKD-4, diverticulitis S/P partial colectomy presents to the ED for evaluation of 5 day history of constipation and 2 day history of anuria. He endorses mild, diffuse abdominal pain that is relieved by taking Tylenol. Patient denies fever, chills. Had one episode of vomiting 2 days ago and one small BM 2 days ago after using suppository. He states that he normally has 3-4 small NBNB bowel movements daily. He endorses decreased appetite but has been able to eat. His last meal was at dinner yesterday. He reports that he has been eating a lot of hot dogs over last 2 weeks and drinking "small Coke floats". No CP or SOB. No peripheral edema. CBC/BMP: 10/14/16 0526 10/15/16 0550 Significant Findings Laboratory Tests Test 10/13/16 10/14/16 10/15/16 03:56 05:26 05:50 Red Blood Count 2.71 MIL/MM3 2.76 MIL/MM3 (4.50-5.90) (4.50-5.90) Hemoglobin 8.4 GM/DL 8.7 GM/DL (13.0-17.0) (13.0-17.0) Hematocrit 25.8 % 26.6 % (39.0-51.0) (39.0-51.0) Neutrophils (%) (Auto) 82.4 % 77.9 % (16.0-70.0) (16.0-70.0) Lymphocytes # (Auto) 0.7 TH/MM3 0.8 TH/MM3 (1.0-4.8) (1.0-4.8) Blood Urea Nitrogen 31 MG/DL (7-18) 40 MG/DL (7-18) 39 MG/DL (7-18) Creatinine 3.48 MG/DL 3.69 MG/DL 3.41 MG/DL (0.60-1.30) (0.60-1.30) (0.60-1.30) Estimat Glomerular Filtration 17 ML/MIN (>89) 16 ML/MIN (>89) 18 ML/MIN (>89) Rate Random Glucose 152 MG/DL 151 MG/DL 136 MG/DL (74-106) (74-106) (74-106) Calcium Level 8.1 MG/DL (8.5-10.1) PE at Discharge General: NAD, AAOx3 Chest: Decreased breath sounds and basilar crackles Cardiac: Irregular Abd: +BS, soft ND/NT Seay cath in place with dark tea colored urine present Ext: No edema Hospital Course (1) Acute kidney injury superimposed on CKD Status: Acute Plan: - Pt with chronic kidney disease, stage 4 due to DM who presented to the ED with constipation and urinary retention. - He was found to have acute worsening of his renal function with Cr 5.44/BUN 36 , GFR 10 - Pt started on IVF hydration. - Pt had Seay catheter placed at admission for monitoring UOP. - His bun/cr and gfr failed to improve - PermCath placement 10/09 - HD initiated on 10/10 - Seay removed 10/10 - Nephrology discussed with the pt AV fistula placement as well. Vascular surgery was consulted and AVF had been planned for 10/12 but pt had some respiratory insufficiency the night before and was transferred to ICU. - CXR (10/12) --> Interval development of significant airspace opacities throughout the right lung and dense consolidation left lower lobe. - Pt developed A. fib RVR and had some previous complaints of chest pain and was evaluated by Cardiology and is underwent LHC on 10/12 which noted severe [place] three-vessel coronary artery disease. - CTS felt that there were no good bypass targets. - AVF surgery has been postponed until he is stable from a cardiac standpoint. - He had emergent HD on 10/12 - I had an extensive conversation with Dr. Ortiz (10/14 and 10/15/16). Pt is NOT a surgical candidate, but with pt's continued decline in status LHC would convey high risk of or other serious complications. - Pt's continued declined d/w pt and at length at bedside. - Pt/ do NOT want to proceed with LHC. I informed Dr. Ortiz. - Pt does NOT want further dialysis. - Pt requests to have PermCath removed - Pt has elected for Hospice. Pt will discharge home today with Home Hospice (2) NSTEMI (non-ST elevated myocardial infarction) Status: Acute Plan: - Pt had complained of some chest pain following PermCath placement - He was noted to have EKG changes, including RBBB and ST and T-wave changes, with an elevated troponin of 1.84, and with his previous complaints of chest pain it was felt that the patient did sustain a cardiovascular event. - He is currently chest pain free. - Cardiology following. - Pt underwent LHC (10/12/16) --> Severe [place] three-vessel coronary artery disease. Normal left-sided filling pressures. - CTS felt there there were no good target vessels - see above (3) SOB (shortness of breath) Status: Acute Plan: - On 10/12 pt had some respiratory insufficiency and was transferred to ICU. - CXR (10/12) --> Interval development of significant airspace opacities throughout the right lung and dense consolidation left lower lobe. - Pt underwent emergent HD on Thursday 10/12 - CXR (10/14) --> Persistent bilateral lower lung consolidative infiltrates and a new area of non-consolidative infiltrate in the right upper lobe. - 2D echo (10/13): - Mildly dilated LV, mild concentric LVH - EF 30-35% - Global LV dysfunction with apical akinesis - Trace mitral valve regurg - Aortic valve sclerosis - Trace tricuspid valve regurg - Normal estimated PA pressure (4) Atrial fibrillation with RVR Status: Acute Plan: - Pt developed A. fib RVR overnight last night. - 2D echocardiogram as above - tele: a fib - metoprolol 50mg bid - stop cardizem gtt (5) Diabetic nephropathy Status: Chronic Plan: - A1c was 6.5 in 04/2016. - Accu checks BID - NovoLog SSI (6) Anemia in chronic kidney disease (CKD) Status: Chronic Plan: - related to ckd. - see above (7) Hyperkalemia Status: Acute Plan: - Recurring issue a/w CKD. Avoiding KANNAN-I and ARB. - Improved - Monitor labs (8) HTN (hypertension), benign Status: Chronic Plan: - Quite volatile at times. - Cont. Metoprolol 100mg po BID. - Norvasc 5mg po daily added on 10/08 - Pt is on Diltazem gtt - Clonidine prn. (9) CAD (coronary artery disease) Status: Chronic Plan: - See above. (10) Psoriatic arthritis Status: Chronic Plan: - Stable. Outpt care. He has not wanted aggressive intervention Pt Condition on Discharge: Deteriorating Discharge Disposition: Hospice/ Home Discharge Instructions DIET: Follow Instructions for: As Tolerated, No Restrictions Activities you can perform: Weight Bearing as Cilff New Medications: Isosorbide Mononitrate ER (Isosorbide Mononitrate ER) 60 Mg Tab 120 MG PO DAILY@07 cad Days 10 Ref 0 TAB Metoprolol Tartrate (Lopressor) 50 Mg Tab 50 MG PO BID cad Days 10 Ref 0 TAB Discontinued Medications: Glimepiride (Glimepiride) 2 Mg Tab 2 MG PO BID Blood Sugar Management #60 Ref 0 TAB Metoprolol Tartrate (Metoprolol Tartrate) 100 Mg Tab 100 MG PO BID #60 Ref 0 TAB Ranitidine (Zantac) 150 Mg Tab 150 MG PO BID Reduce Stomach Acid #60 Ref 0 TAB Mahendra Puentes DO Oct 15, 2016 14:06
--- NOTE | 2016-10-15 14:10 | RADRPT ---
EXAM DATE/TIME: 10/15/2016 00:00 [facility] COMPARISON: No previous studies available for comparison. INDICATIONS : Patient no longer needs perm cath MEDICAL HISTORY : 1. Anemai 2 kidney disease 3. DM 4. HTN 5. Hyperkalemia 6. Neuropathy 7. CO 8. Osteoporosis SURGICAL HISTORY : 1. Hernia repair 2. Colectomy ENCOUNTER: Initial ACUITY: 2 weeks PAIN SCORE: 0/10 IMAGE SERIES: ? ACCESS: Right PROCEDURE : 1. PermaCath removal. The risks, benefits and alternatives to the procedure were explained and verbal and written consent w as obtained. The site was prepped in sterile fashion. Full sterile technique was used, including ca p, mask, sterile gloves and gown and a large sterile sheet. Hand hygiene and 2% chlorhexidine and/or betadine/alcohol prep was utilized per protocol for cutaneous antisepsis. The skin and subcutaneous tissues were infiltrated with local anesthetic solution. The tract was anesthetized with 1% Lidocaine using. The Permcath was dissected from the subcutaneous tissues and easily removed in one piece. Manual pressure was applied to the venotomy site until hem ostasis was obtained. Sterile dressing was applied. The patient tolerated the procedure well and there were no complications. CONCLUSION: Uncomplicated Permcath removal. Miles Azar Jr., MD on October 15, 2016 at 14:08 Board Certified Radiologist. This report was verified electronically.
[2016-10-15] MEDS ORDERED: METOPROLOL TARTRATE 50 MG TAB PO SCH (21:00)
[2016-10-16] MEDS ORDERED: ISOSORBIDE MONONITRATE 60 MG TAB PO SCH (07:00)
[2016-10-16] MEDS ORDERED: ATORVASTATIN 10 MG TAB PO SCH (09:00)
== END 2016-10-15 15:51 | disposition hospice, home (50) | DRG 682 ==
LOC: NEPD 11:49 → NEDA 17:48 → NEPFCDU 20:46 → OBSVTOIN 10-09 09:44 → HOCA 10-09 18:02 → HIME 10-12 02:10
PROVIDERS: ADMIT Hospitalist; ATTEND Hospitalist
PROC: 0T9B70Z Drainage of Bladder with Drainage Device, Via Natural or Artificial Opening (ICD-10-PCS; principal; 2016-10-06)
PROC: 5A1D60Z (ICD-10-PCS; 2016-10-10)
PROC: 4A023N7 Measurement of Cardiac Sampling and Pressure, Left Heart, Percutaneous Approach (ICD-10-PCS; 2016-10-12)
PROC: B2111ZZ Fluoroscopy of Multiple Coronary Arteries using Low Osmolar Contrast (ICD-10-PCS; 2016-10-12)
DX: N17.9 Acute kidney failure, unspecified (principal); I21.4 Non-ST elevation (NSTEMI) myocardial infarction; E87.2 Acidosis; I12.0 Hypertensive chronic kidney disease with stage 5 chronic kidney disease or end stage renal disease; E11.21 Type 2 diabetes mellitus with diabetic nephropathy; I48.92 Unspecified atrial flutter; I48.91 Unspecified atrial fibrillation; F03.90 Unspecified dementia, unspecified severity, without behavioral disturbance, psychotic disturbance, mood disturbance, and anxiety; E86.0 Dehydration; N13.8 Other obstructive and reflux uropathy; N39.0 Urinary tract infection, site not specified; I08.3 Combined rheumatic disorders of mitral, aortic and tricuspid valves; E11.22 Type 2 diabetes mellitus with diabetic chronic kidney disease; D51.0 Vitamin B12 deficiency anemia due to intrinsic factor deficiency; L40.50 Arthropathic psoriasis, unspecified; R63.0 Anorexia; K59.00 Constipation, unspecified; Z90.49 Acquired absence of other specified parts of digestive tract; Z86.73 Personal history of transient ischemic attack (TIA), and cerebral infarction without residual deficits; E78.00 Pure hypercholesterolemia, unspecified; H91.90 Unspecified hearing loss, unspecified ear; K21.9 Gastro-esophageal reflux disease without esophagitis; N18.6 End stage renal disease; K44.9 Diaphragmatic hernia without obstruction or gangrene; I25.2 Old myocardial infarction; G47.30 Sleep apnea, unspecified; D63.1 Anemia in chronic kidney disease; M81.0 Age-related osteoporosis without current pathological fracture; N25.81 Secondary hyperparathyroidism of renal origin; E55.9 Vitamin D deficiency, unspecified; Z87.891 Personal history of nicotine dependence; L40.9 Psoriasis, unspecified; I25.10 Atherosclerotic heart disease of native coronary artery without angina pectoris; E87.5 Hyperkalemia; Z84.1 Family history of disorders of kidney and ureter; N40.1 Benign prostatic hyperplasia with lower urinary tract symptoms; I25.5 Ischemic cardiomyopathy; I45.10 Unspecified right bundle-branch block; Z51.5 Encounter for palliative care; N28.89 Other specified disorders of kidney and ureter; N20.0 Calculus of kidney; F41.9 Anxiety disorder, unspecified
CPT/HCPCS: 36558; 36600; 51702; 71010; 74000; 74176; 76937; 77001; 80048; 80053; 80061; 80074; 81001; 82728; 82805; 82948; 83036; 83540; 83550; 83605; 83690; 83735; 84100; 84155; 84443; 84484; 85025; 85610; 85730; 87086; 87641; 90935; 93005; 93306; 93454; 93971; 94640; 94664; 96361; 96365; 96366; 96374; 96375; 99152; 99153; C1750; C1769; C1893; G0378; J0690; J0696; J1580; J1644; J1756; J1815; J2250; J2405; J3010; J3370; J7030; J7050; Q4081; Q9967